=== PATIENT | female | born 2000 | race African-American/Black ===

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

== ENCOUNTER 2021-01-17 21:38 | Emergency (ER) | payer OTHER, MEDICAID, SELFPAY ==
[2021-01-17 21:39] VITALS: BP 140/87; PULSE 71; RESP 16; TEMP 36.8; O2SAT 99; BMI 22.8
--- NOTE | 2021-01-17 22:08 | EDS_ITS ---
HPI HPI - URI History of Present Illness Chief Complaint: Ear Problem Informant: patient and parent Narrative Narrative: 20-year-old female presents for the evaluation of right ear pain. Patient states that for the past couple weeks she has been having a viral URI. Seem to get better but on Monday sore throat nasal congestion and rhinorrhea returned. She states that tonight she has had pain in the right ear. No drainage. She states that her hearing is blurry. She had tympanostomy tubes as a child. No fever. Patient has had 2 - home Covid test this week and is due to be tested for her school volleyball team tomorrow. ROS ROS ED Constitutional Constitutional ED: Denies chills, fever(s) or weight loss Eyes Eyes: Denies change in vision or diplopia ENT ENT ED: Reports ear pain, rhinorrhea and sore throat Cardiovascular Cardiovascular: Denies chest pain, orthopnea, palpitations or racing heartbeat Respiratory/Chest Respiratory/Chest: Reports cough; Denies dyspnea or orthopnea Gastrointestinal Gastrointestinal: Denies abdominal pain, diarrhea, nausea or vomiting Genitourinary Genitourinary ED: Denies dysuria, hematuria or urinary frequency Musculoskeletal Musculoskeletal: Denies arthralgias or myalgias Integumentary Denies abscess or rash Neurologic Neurologic: Denies headache(s) or weakness Psychiatric Psychiatric: Denies anxiety, depression, suicidal ideation or suicidal thoughts Endocrine Endocrinology: Denies polydipsia, polyphagia or polyuria Allergic/Immunologic Allergic/Immunologic ED: Denies mouth swelling, tongue swelling or urticaria PFSH PFSH Medical History sport induced asthma Home Medications NK 01/17/21 [History Last Taken Unknown] Allergy/AdvReac Type Severity Reaction Status Date / Time No Known Allergies Allergy Verified 05/15/19 15:54 Surgical History History of placement of ear tubes Social History current occupation: [employer] other: Plays basketball, volleyball, and track Smoking Status: Never smoker alcohol intake: never substance use type: does not use seatbelt use: always EXAM Physical Exam Const Vital Signs: 01/17/21 21:39 Temperature 98.3 F Temperature Source Temporal Pulse Rate 71 Respiratory Rate 16 Blood Pressure 140/87 H Blood Pressure Mean 104 Pulse Ox 99 Oxygen Delivery Method Room Air Positive well nourished and well developed General Appearance ED: well developed HEENT Reports normocephalic, head/scalp atraumatic and moist mucous membranes HEENT Narrative: The right tympanic membrane is erythematous and bulging with l oss of landmarks. Left tympanic membrane appears normal. No evidence of perforation. normocephalic and atraumatic Throat: posterior oropharynx normal Eyes PERRL and EOMs intact bilaterally Neck no lymphadenopathy, supple and no JVD Resp normal respiratory effort and clear to auscultation bilaterally Cardio regular rate, regular rhythm and no murmurs Rate: regular rate Rhythm: regular rhythm GI normal to inspection, nondistended, normoactive bowel sounds and non-tender Palpation: soft Back/Spine no CVA tenderness and normal ROM Extremity normal to inspection General Extremety ED: Negative for edema General Extremity: Negative for edema Neuro oriented x3 and CN's II-XII intact bilaterally Sensorium / Orientation: alert Motor Exam: strength 5/5 throughout Psych mental status grossly normal Mood & Affect: Negative for depressed or tearful Skin no rashes or lesions noted and no wounds MDM MDM MDM Narrative Medical decision making narrative: Patient will be started on cefdinir. Tylenol Motrin for pain follow-up with primary care if not improving Discharge Plan Triage Chief Complaint: Ear Problem ED Provider: Karsten Montenegro Dx/Rx/DC Orders Clinical Impression: Acute otitis media, Viral URI Instructions: ED Otitis Media Antibiotic ... Prescriptions: No Action NK RF: 0 Primary Care Provider: Venus Mccoy Referrals: Venus Mccoy MD [Primary Care Provider] - As Needed Disposition Disposition: Home, Self Care
[2021-01-17] MEDS: Cefdinir 300 MG Capsule PO (23:00)
[2021-01-17 23:10] VITALS: RESP 16
== END 2021-01-17 23:11 | disposition home or self-care (01) ==
LOC: ED 22:19
PROVIDERS: Emergency Provider Emergency Medicine; PCP Pediatrics
DX: H66.91 Otitis media, unspecified, right ear (principal); J06.9 Acute upper respiratory infection, unspecified
CPT/HCPCS: 99283

== ENCOUNTER 2021-06-15 08:08 | Outpatient (CLI) | payer OTHER, MEDICAID, SELFPAY ==
--- NOTE | 2021-06-15 08:11 | US_ITS ---
STUDY: ULTRASOUND OF THE FEMALE PELVIS - COMPLETE REASON FOR EXAM: Female, 20 years old. Abnormal uterine bleeding LMP: 03/30/2021. TECHNIQUE: Transabdominal and Transvaginal TECHNICAL QUALITY: Adequate. COMPARISON: None. FINDINGS: The uterus is anteverted and is in a midline position. The uterus measures 8.4 cm x 5.2 cm x 4.1 cm. Normal uterine cervix. The endometrium measures 9.1 mm in thickness, and is hyperechoic. There is no demonstrated endometrial mass. There is no demonstrated myometrial mass. I.U.D. - The patient does not have an I.U.D. The right ovary is visualized. The right ovary measures 3.4 cm x 3.5 cm x 1.7 cm. Small follicles are seen. There is no visualized right adnexal mass or complex lesion. There is normal arterial and normal venous vascularity. The left ovary is visualized. The left ovary measures 3.7 cm x 1.9 cm x 1.6 cm. Small follicles are seen. There is no visualized left adnexal mass or complex lesion. There is normal arterial and normal venous vascularity. There is no fluid in the cul-de-sac. The pre void volume of the bladder was 148 ml. Polycystic ovary disease: No. US/Transvaginal Non- IMPRESSION: Normal female pelvis. Electronically Signed: Maikol Altman MD at 10:15 EDT ,
--- NOTE | 2021-06-15 08:11 | US_ITS ---
STUDY: ULTRASOUND OF THE FEMALE PELVIS - COMPLETE REASON FOR EXAM: Female, 20 years old. Abnormal uterine bleeding LMP: 03/30/2021. TECHNIQUE: Transabdominal and Transvaginal TECHNICAL QUALITY: Adequate. COMPARISON: None. FINDINGS: The uterus is anteverted and is in a midline position. The uterus measures 8.4 cm x 5.2 cm x 4.1 cm. Normal uterine cervix. The endometrium measures 9.1 mm in thickness, and is hyperechoic. There is no demonstrated endometrial mass. There is no demonstrated myometrial mass. I.U.D. - The patient does not have an I.U.D. The right ovary is visualized. The right ovary measures 3.4 cm x 3.5 cm x 1.7 cm. Small follicles are seen. There is no visualized right adnexal mass or complex lesion. There is normal arterial and normal venous vascularity. The left ovary is visualized. The left ovary measures 3.7 cm x 1.9 cm x 1.6 cm. Small follicles are seen. There is no visualized left adnexal mass or complex lesion. There is normal arterial and normal venous vascularity. There is no fluid in the cul-de-sac. The pre void volume of the bladder was 148 ml. Polycystic ovary disease: No. US/Pelvic (Non ) IMPRESSION: Normal female pelvis. Electronically Signed: Maikol Altman MD at 10:15 EDT ,
== END 2021-06-15 23:59 | disposition home or self-care (01) ==
PROVIDERS: PCP Pediatrics; Visit Provider Obstetrics & Gynecology
DX: N93.9 Abnormal uterine and vaginal bleeding, unspecified (principal)
CPT/HCPCS: 76830; 76856

== ENCOUNTER → 2022-05-03 | Outpatient (CLI) | payer MEDICAID, SELFPAY ==
[2022-05-03 18:09] LABS: Chlamydia Trachomatis by PCR POSITIVE (Negative); Neisserai gonorrhoeae by PCR Negative (Negative); Probe Check PASS; Sample Adequacy Control PASS; Specimen Processing Control PASS
== END | disposition home or self-care (01) ==
PROVIDERS: PCP Pediatrics; Referring Provider Nurse Practitioner Women's Health; Visit Provider Nurse Practitioner Women's Health
DX: Z11.3 Encounter for screening for infections with a predominantly sexual mode of transmission (principal)
CPT/HCPCS: 87491; 87591

== ENCOUNTER → 2022-07-05 | Outpatient (CLI) | payer MEDICAID, SELFPAY ==
[2022-07-07 22:06] LABS: Chlamydia By Nucleic Acid AMP Negative (Negative)
[2022-07-07 22:22] LABS: Gonococcus By Nucleic Acid AMP Negative (Negative)
== END | disposition home or self-care (01) ==
LOC: LABSPEC 16:38
PROVIDERS: PCP Pediatrics; Referring Provider Nurse Practitioner Women's Health; Visit Provider Nurse Practitioner Women's Health
DX: Z11.3 Encounter for screening for infections with a predominantly sexual mode of transmission (principal)
CPT/HCPCS: 87491; 87591

== ENCOUNTER 2022-08-11 12:00 | Outpatient (RCR) | payer MEDICAID, SELFPAY ==
--- NOTE | 2022-02-09 16:14 | HP.PTEVAL ---
Patient's Visit Information YENNY ZEE is a 21 year old F referred to Physical Therapy by EMELIA MURILLO with a diagnosis of Posterolateral Corner Recon 02/01/22. Date of Evaluation: 02/09/22 Physical Therapist: Altagracia Mcdermott DPT - Visit Plan Frequency: 2x /Week Duration: 4 Weeks Plan: 02/01/22- Protocol in Folder- Script has protocol information on it. HEP Given IE: Quad set, heel slides supine and seated, bolster extension stretch - Subjective Patient reports that she was playing volleyball and slipped on someone sweat and down she went- September 2020. Has not done therapy but decided to get it fixed. 02/01/22 Dr. Murillo Posterolateral Corner Recon- she went home after surgery- lives on one single story with no stairs to enter- people around who can help. Patient reports that she has pain behind the knee. Worst 7/10 Agg: getting up and moving. Best: 0/10 Eases: laying down. She is wearing the brace all the time- locked into extension. She has radiating pain from the knee to the hamstring and calf. Describes the pain as sharp and dull. Fully I and active prior to surgery. Plays volleyball in college- [employer] [facility] [employer]- plans to play again next year. She is from here and plans to stay here for therapy. Sleep: not disturbed. She plans to go back to the dorms- lives on first floor- she plans to go back to class tomorrow. PMHx: none Meds: none - Objective Posture: FH, RS can correct but does not maintain. Gait: NWB axillary crutches- TROM brace intact- follows precautions. Observation: incision healing well- steri strips intact. Girth: Patella: 41cm 6 above patella:55 cm. Palpation: tender along medial and lateral joint line and posterior knee. ROM: 10-45 degrees - Balance/Special Test Scores Lower Extremity Functional Score: 24 - Goals Goal 1:: Patient will be I with HEP and progression Goal Time Frame: 4-6 Weeks Goal 2:: Patient will ambulate >300 feet with a normalized gait pattern Goal Time Frame: 4-6 Weeks Goal 3:: Patient will demo 0-130 degrees of ROM Goal Time Frame: 4-6 Weeks Goal 4:: Patient will demo equal quad girth 6 inches above patella Goal Time Frame: 4-6 Weeks - Rehabilitation Potential Physical Therapy Diagnosis: Patient presents s/p Posterolateral Corner Recon 02/01/22- she decreased LE and core strength/stabilization, ROM, flex, proprioception and muscular endurance leading to abnormal participation in ADL's and sport Rehabilitation Potential: Good - Anticipated Interventions Patient/Client Instruction: Educate patient on: Benefits of Fitness Program Therapeutic Exercise to Include: Strength training, Endurance training, Balance training, Coordination, Agility training, Body mechanics, Postural training, Flexibilty training, Gait and locomotor training, Neuromotor development, Passive ROM, Active ROM, Dynamic Lumbar Stabilization, Scapular Strength/Stabilization TENS: Yes Other electric stimulation: Yes Cryotherapy (ice pack, ice massage): Yes Thermo therapy (hot pack): Yes Ultrasound (thermal/non thermal): No Vasopneumatic device: Yes Thank you for the opportunity to evaluate your patient. For Medicare and Medicare HMO plans, please review the plan of care and approve it. It will need to be FAXED BACK to us at [phone] for Medicare purposes. For Medicare only, by signing this I certify the plan of care. Please let me know if there are questions or concerns regarding this plan of care. Physician Signature: Date:
--- NOTE | 2022-03-09 11:00 | HP.PTREVAL ---
EMELIA MAI, It has been my pleasure to treat YENNY ZEE over the last 9 visits for Posterolateral Corner Recon 02/01/22. Please see the progress note below for an update on the physical therapy plan of care! Subjective: Patient reports that the knee is good- she can start with one crutch- she did it around the cafeteria- the bottom of the foot feels weird. She goes back to the MD on Monday. She has had some cracking but its not painful- the most pain she has is a 2-3/10 but that comes and goes. She reports compliance with restrictions. Objective/Function: Gait: PWB 50% per protocol. ROM: 0-135 degrees. Strength: extn: flex:- quad set visible no lag. Girth: 6 above: 50cm Plan Plan: 03/09/22: Continue with Protocol in Folder. 02/01/22- Protocol in Folder- Script has protocol information on it Balance/Gait/Functional tests - Balance/Special Test Scores Lower Extremity Functional Score: 42 Goals Goal 1:: Patient will be I with HEP and progression Goal Time Frame: 4-6 Weeks Goal 2:: Patient will ambulate >300 feet with a normalized gait pattern Goal Time Frame: 4-6 Weeks Goal 3:: Patient will demo 0-130 degrees of ROM Goal Time Frame: 4-6 Weeks Goal 4:: Patient will demo equal quad girth 6 inches above patella Goal Time Frame: 4-6 Weeks Anticipated Interventions Patient/Client Instruction: Educate patient on: Benefits of Fitness Program Therapeutic Exercise to Include: Strength training, Endurance training, Balance training, Coordination, Agility training, Body mechanics, Postural training, Flexibilty training, Gait and locomotor training, Neuromotor development, Passive ROM, Active ROM, Dynamic Lumbar Stabilization, Scapular Strength/Stabilization TENS: Yes Other electric stimulation: Yes Cryotherapy (ice pack, ice massage): Yes Thermo therapy (hot pack): Yes Ultrasound (thermal/non thermal): No Vasopneumatic device: Yes Please do not hesitate to contact me at [phone] by phone or if you have questions or concerns regarding this new plan of care! Sincerely, Altagracia Mcdermott DPT
--- NOTE | 2022-04-29 10:59 | HP.PTREVAL_ITS ---
EMELIA MAI, It has been my pleasure to treat YENNY ZEE over the last 21 visits for Posterolateral Corner Recon 02/01/22. Please see the progress note below for an update on the physical therapy plan of care! Subjective: Patient reports that she is still sore from Monday- she squatted without a chair and hamstring curls- muscle soreness but not painful. She is wearing the brace all the time- per MD request. Went to see MD who was happy with progress- they don't want her doing anything laterally yet. 3/10 in the posterior corner of the knee. Soreness in quads and hamstrings Objective/Function: Gait: no deviation noted. Squat: weight shift to the left. SLS: 30 sec without LOB. Right Extn: 38/42 Left Extn: 50/57. Left Flexion: 37/43 Right Mey[place]32/25 Girth: 6 above: Right: 52 cm Left: 55 cm Plan Plan: 04/22/22: Use functional brace with ADL's- okay to start bike/str ength/light ellip. Please follow protocol otherwise (but can start hamstring strengthening since those were not injured). 03/09/22: Continue with Protocol in Folder. 02/01/22- Protocol in Folder- Script has protocol information on it Balance/Gait/Functional tests - Balance/Special Test Scores Lower Extremity Functional Score: 53 Goals Goal 1:: Patient will be I with HEP and progression Goal Time Frame: 4-6 Weeks Goal Progress: Progressing Goal 2:: Patient will ambulate >300 feet with a normalized gait pattern Goal Time Frame: 4-6 Weeks Goal Progress: Progressing Goal 3:: Patient will demo 0-130 degrees of ROM Goal Time Frame: 4-6 Weeks Goal Progress: Progressing Goal 4:: Patient will demo equal quad girth 6 inches above patella Goal Time Frame: 4-6 Weeks Goal Progress: Progressing Anticipated Interventions Patient/Client Instruction: Educate patient on: Benefits of Fitness Program Therapeutic Exercise to Include: Strength training, Endurance training, Balance training, Coordination, Agility training, Body mechanics, Postural training, Flexibilty training, Gait and locomotor training, Neuromotor development, Passive ROM, Active ROM, Dynamic Lumbar Stabilization, Scapular Strength/Stabilization TENS: Yes Other electric stimulation: Yes Cryotherapy (ice pack, ice massage): Yes Thermo therapy (hot pack): Yes Ultrasound (thermal/non thermal): No Vasopneumatic device: Yes Please do not hesitate to contact me at [phone] by phone or if you have questions or concerns regarding this new plan of care! Sincerely, LANCE SanchezT
--- NOTE | 2022-06-02 10:49 | HP.PTREVAL ---
EMELIA MAI, It has been my pleasure to treat YENNY ZEE over the last 31 visits for Posterolateral Corner Recon 02/01/22. Please see the progress note below for an update on the physical therapy plan of care! Subjective: Patient reports that the knee is getting better- she is doing more lifting but is still having pain with hamstring activities. Worst: 10/03 goes away immediately after- plans to speak to her MD about this. Goes back to MD the 15 of June. Has not don't any running or jumping yet. She feels that she is 75% better but not back to sports specific activities. Objective/Function: Posture: FH, RS- can correct and maintain with verbal cues. Gait: slightly antalgic- does not fully extend in stance phase. Squat: slight weight shift to the left. SLS: 30 sec without LOB. Right Extn: 55 Left Extn: 60. Left Flexion: 50 Right Flexion: 39 Girth: 6 above: Right: 55 cm Left: 55.5 cm. ROM: 0-135 degrees Plan Plan: 06/02/22: Continue through protocol 2-3x a week for 12 weeks. Quad/knee dominant compound lifts (squat) and hamstring hypertrophy on machines next visit. RTD May. Progress note at this time. Balance/Gait/Functional tests - Balance/Special Test Scores Lower Extremity Functional Score: 49 Goals Goal 1:: Patient will be I with HEP and progression Goal Time Frame: 4-6 Weeks Goal Progress: Progressing Goal 2:: Patient will ambulate >300 feet with a normalized gait pattern Goal Time Frame: 4-6 Weeks Goal Progress: Progressing Goal 3:: Patient will demo 0-130 degrees of ROM Goal Time Frame: 4-6 Weeks Goal Progress: Goal Met Goal 4:: Patient will demo equal quad girth 6 inches above patella Goal Time Frame: 4-6 Weeks Goal Progress: Progressing Anticipated Interventions Patient/Client Instruction: Educate patient on: Benefits of Fitness Program Therapeutic Exercise to Include: Strength training, Endurance training, Balance training, Coordination, Agility training, Body mechanics, Postural training, Flexibilty training, Gait and locomotor training, Neuromotor development, Passive ROM, Active ROM, Dynamic Lumbar Stabilization, Scapular Strength/Stabilization TENS: Yes Other electric stimulation: Yes Cryotherapy (ice pack, ice massage): Yes Thermo therapy (hot pack): Yes Ultrasound (thermal/non thermal): No Vasopneumatic device: Yes Please do not hesitate to contact me at [phone] by phone or if you have questions or concerns regarding this new plan of care! Sincerely, LANCE SanchezT
--- NOTE | 2022-07-14 10:55 | HP.PTREVAL_ITS ---
EMELIA MAI, It has been my pleasure to treat YENNY ZEE over the last 39 visits for Posterolateral Corner Recon 02/01/22. Please see the progress note below for an update on the physical therapy plan of care! Subjective: Patient reports that she goes back to see the MD in August. Feels really good with the exception of the back part in her hamstring area. Worst pain in the last week is a 3/10- pain is there all the time but the pain intensity changes. She has more pain when she is active. When it hurts there is nothing that really makes it feel better. Goes back to [facility] in August. When she was there she was told by the MD that it was in PT's hands when she was allowed to return to sport. She feels that she is ready to return to sport. The pain is what makes her feel only 90%. Objective/Function: As of July 05-[facility]: SL hop for distance: R 5'8 L 5'9=98%. SL triple jump: R 16'0 L 17'2=93%. SL crossover hop: R 10'8 L 11'3=94%. 6m timed hop: R 2.31s L 2.44s=94%. SL vertical jump: R 5.8 L 7.04=82%. Pro-agility 5-10-5: R 5.02s L 5.10s=98%. 07/14/22 PT ELR: Posture: good throughout. Gait: no deviation noted. Squat: slight weight shift to the left. SLS: 30 sec without LOB. Right Extn: 53 Left Extn: 55. Left Flexion: 43.5 Right Flexion: 44 Ratio: Left: 79% Right: 83% Girth: 6 above: Right: 55 cm Left: 55.5 cm. ROM: 0-135 degrees Plan Plan: 07/14/22: Hold- pt will do her own program for 4 weeks then follow up with [facility] for progression of HEP and jump measurements then PT CS for strength and POC update. 06/21/22: Per Script: ok for modalities/needling. As long as hip/core/jump landing good, ok for slow interval return to running program. I wo uld make sure kinematic, proximal strength, hamstring tendonitis is calmed down before return to running (same with return to any lateral movement or sport-like activities) -ELR. 06/02/22: Continue through protocol 2-3x a week for 12 weeks. Quad/knee dominant compound lifts (squat) and hamstring hypertrophy on machines. Balance/Gait/Functional tests - Balance/Special Test Scores Lower Extremity Functional Score: 78 Goals Goal 1:: Patient will be I with HEP and progression Goal Time Frame: 4-6 Weeks Goal Progress: Progressing Goal 2:: Patient will ambulate >300 feet with a normalized gait pattern Goal Time Frame: 4-6 Weeks Goal Progress: Progressing Goal 3:: Patient will demo 0-130 degrees of ROM Goal Time Frame: 4-6 Weeks Goal Progress: Goal Met Goal 4:: Patient will demo equal quad girth 6 inches above patella Goal Time Frame: 4-6 Weeks Goal Progress: Progressing Anticipated Interventions Patient/Client Instruction: Educate patient on: Benefits of Fitness Program Therapeutic Exercise to Include: Strength training, Endurance training, Balance training, Coordination, Agility training, Body mechanics, Postural training, Flexibilty training, Gait and locomotor training, Neuromotor development, Passive ROM, Active ROM, Dynamic Lumbar Stabilization, Scapular Strength/Stabilization TENS: Yes Other electric stimulation: Yes Cryotherapy (ice pack, ice massage): Yes Thermo therapy (hot pack): Yes Ultrasound (thermal/non thermal): No Vasopneumatic device: Yes Please do not hesitate to contact me at [phone] by phone or if you have questions or concerns regarding this new plan of care! Sincerely, Altagracia Mcdermott DPT
--- NOTE | 2022-08-11 13:23 | HP.PTREVAL_ITS ---
EMELIA MAI, It has been my pleasure to treat YENNY ZEE over the last 40 visits for Posterolateral Corner Recon 02/01/22. Please see the progress note below for an update on the physical therapy plan of care! Subjective: Pt. reports being 95% better overall. She is back to running, she does have some discomfort, but overall doing well. She has tried playing basketball in a league, but only for a few minutes at a time. Pt. has been strength training x5 days per week. She does have some lateral thigh soreness with increased HS exercises, mostly in single leg. Objective/Function: Much improved jump height and distance bilaterally while maintaining or improving symmetry from side to side! SL hop for distance: R 5'11 L 6'3=94%. SL triple jump: R 17'4 L 18'3=94%. SL crossover hop: R 14'5L 14'4=99%. 6m timed hop: R 2.17s L 2.28s=95%. SL vertical jump: R 7.23 L 7.42=97%. Agility tests done last month but WNL. Pro-agility 5-10-5: R 5.02s L 5.10s=98%. Pt. has equal strength bilaterally. No issues with squatting, lunging, skipping or jumping. Pt. is doing well with all exercises and running. Pt. at this point in time is able to progress back to sporting activities, but to wean into it. She is to contact me with any concerns leading up to when she sees her physician in august. Pt. consents. Plan Plan: Pt. to return back to sport weaning into it as tolerated. Pt. to see physician in late August. Pt. to contact PT if not progressing as she feels she should be. Balance/Gait/Functional tests - Balance/Special Test Scores Lower Extremity Functional Score: 80 Goals Goal 1:: Patient will be I with HEP and progression Goal Time Frame: 4-6 Weeks Goal Progress: Goal Met Goal 2:: Patient will ambulate >300 feet with a normalized gait pattern Goal Time Frame: 4-6 Weeks Goal Progress: Goal Met Goal 3:: Patient will demo 0-130 degrees of ROM Goal Time Frame: 4-6 Weeks Goal Progress: Goal Met Goal 4:: Patient will demo equal quad girth 6 inches above patella Goal Time Frame: 4-6 Weeks Goal Progress: Goal Met Goal 5:: LTG: Pt. to run with normal mechanics without increase in symptoms. Goal Time Frame: 4-6 Weeks Goal Progress: Goal Met Goal 6:: LTG: Pt. to pass all RTS testing without increase in symptoms. Goal Time Frame: 4-6 Weeks Goal Progress: Goal Met Anticipated Interventions Patient/Client Instruction: Educate patient on: Benefits of Fitness Program Therapeutic Exercise to Include: Strength training, Endurance training, Balance training, Coordination, Agility training, Body mechanics, Postural training, Flexibilty training, Gait and locomotor training, Neuromotor development, Passive ROM, Active ROM, Dynamic Lumbar Stabilization, Scapular Strength/S tabilization TENS: Yes Other electric stimulation: Yes Cryotherapy (ice pack, ice massage): Yes Thermo therapy (hot pack): Yes Ultrasound (thermal/non thermal): No Vasopneumatic device: Yes Please do not hesitate to contact me at [phone] by phone or if you have questions or concerns regarding this new plan of care! Sincerely, Axel Montiel DPT
== END 2022-08-11 19:00 | disposition home or self-care (01) ==
LOC: PT 12:00
PROVIDERS: PCP Pediatrics
DX: S83.429D Sprain of lateral collateral ligament of unspecified knee, subsequent encounter (principal)
CPT/HCPCS: 97110; 97116; 97140; 97162; 97164; 97530

== ENCOUNTER → 2022-10-18 | Outpatient (CLI) | payer MEDICAID, SELFPAY ==
[2022-10-21 09:09] LABS: Chlamydia By Nucleic Acid AMP Negative (Negative); Gonococcus By Nucleic Acid AMP Negative (Negative)
== END | disposition home or self-care (01) ==
PROVIDERS: PCP Pediatrics; Visit Provider Nurse Practitioner Women's Health
DX: N89.8 Other specified noninflammatory disorders of vagina (principal)
CPT/HCPCS: 87070; 87205; 87491; 87591

== ENCOUNTER → 2023-07-10 | Outpatient (CLI) | payer MEDICAID, SELFPAY ==
[2023-07-10 09:57] LABS: Hematocrit 31.9 % (37-47); Hemoglobin 9.6 g/dL (12.0-15.0); Mean Corp Hgb Conc 30.1 g/dL (32-36); Mean Corpuscular Hgb 22.1 pg (27.0-32.0); Mean Corpuscular Volume 73.5 fL (81-99); Mean Platelet Vol. 9.3 fl (6.2-12.0); POSITIVE MORPHOLOGY YES; Platelet Count 417 K/mm3 (150-450); RBC Distribution Width CV 21.5 % (11.6-14.6); Red Blood Count 4.34 M/mm3 (4.2-5.4); White Blood Count 4.7 K/mm3 (4.4-11.0)
[2023-07-10 10:15] LABS: Scan Indicated on CBC? Y/N YES- FLAGS NOTED
[2023-07-10 10:25] LABS: Differential Comment SCANNED
[2023-07-10 10:56] LABS: HIV - WCH Non-Reactive (Nonreactive); Hepatitis C Antibody Non-Reactive (Nonreactive); Syphilis Antibodies Non-reactive
[2023-07-12 19:46] LABS: HPV Reflexed? NOT INDICATED
== END | disposition home or self-care (01) ==
PROVIDERS: Referring Provider Nurse Practitioner Women's Health; Visit Provider Nurse Practitioner Women's Health
DX: Z12.4 Encounter for screening for malignant neoplasm of cervix (principal); Z20.2 Contact with and (suspected) exposure to infections with a predominantly sexual mode of transmission; N93.9 Abnormal uterine and vaginal bleeding, unspecified
CPT/HCPCS: 36415; 85027; 86703; 86780; 86803; 88175; G0145

== ENCOUNTER 2024-01-18 15:00 | Emergency (ER) | payer MEDICAID, SELFPAY ==
[2024-01-18 15:02] VITALS: BP 121/62; PULSE 72; RESP 18; TEMP 36.4; O2SAT 100; BMI 24.5
[2024-01-18 17:01] VITALS: BP 116/67; PULSE 65; RESP 18
[2024-01-18 17:23] LABS: Mucous, Urine 0 SEEN /hpf (<or=2+); Red Blood Cells-Urine 0 SEEN /hpf (0-5)
[2024-01-18 17:29] LABS: Color, Urine Yellow (Yellow); Glucose, Dipstick Normal (Normal); Ketone-Dipstick Negative (Negative); Leukocyte Esterase-Dipstick 25 /ul (Negative); Nitrite-Dipstick Negative (Negative); Occult Blood-Urine Negative /ul (Negative); Protein-Dipstick 30 mg/dl (Negative); Urine Bilirubin Dipstick Negative (Negative); Urine Clarity Clear (Clear); Urine Urobilinogen Normal (Normal)
[2024-01-18 17:33] LABS: Internal QC Validated? YES +Cl - CLEAR BKGD; Pregnancy, Urine Negative Negative
[2024-01-18 17:41] LABS: Bacteria 1+ /hpf (None Seen); Squamous Epithelial Cells - UA 5-10 SEEN /hpf (5-10); White Blood Cells 0-5 SEEN /hpf (0-5)
--- NOTE | 2024-01-18 18:01 | US_ITS ---
EXAM: US PELVIS TRANSVAGINAL CLINICAL INDICATION: left pelvic pain TECHNIQUE: Transvaginal pelvic ultrasound was performed with grayscale and color Doppler imaging. Transvaginal imaging was used for better evaluation of the endometrium and adnexa. COMPARISON: No relevant prior studies available. FINDINGS: UTERUS/CERVIX: The uterus measures 7.3 x 3.8 x 4.6 cm. The endometrium measures 8 mm. Anteverted. There is no uterine mass. RIGHT OVARY: The right ovary measures 3.6 x 1.5 x 2.0 cm. Blood flow is present in the right ovary. LEFT OVARY: The left ovary measures 3.4 x 1.4 x 2.1 cm. Blood flow is present in the left ovary. FREE FLUID: There is a trace amount of free fluid in the cul-de-sac. BLADDER: Empty bladder which cannot be evaluated with this probe. US/Transvaginal Non- IMPRESSION: No acute findings in the pelvis. Electronically Signed: Abiel Jennings MD at 18:50 EDT ,
--- NOTE | 2024-01-18 18:03 | EDS_ITS ---
HPI HPI - GI History of Present Illness Chief Complaint: Abd Pain Informant: patient Narrative Narrative: 23-year-old female presenting with left pelvic pain that has been persistent since her last menstrual cycle which was about 2 weeks ago. She states she used to have irregular cycles before she was put on control pills which she has been taking and have regulated her cycle. She states she is due to have her next cycle in the next 4 days, as she just started the placebo pills and her hormone pack. She denies any urinary symptoms. No nausea or vomiting. She denies any vaginal discharge or bleeding right now. Normal bowel movements. No history of abdominal surgeries. 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 Home Medications ?Medication ?Instructions ?Recorded ?Last Taken ?Type levonorgestrel-ethinyl estradiol 1 tab PO QDAY #84 tabs 07/10/23 Unknown Rx 0.1 mg-20 mcg tablet (Aviane) valacyclovir 500 mg tablet 500 mg PO QDAY #90 tabs 11/01/23 Unknown Rx Allergy/AdvReac Type Severity Reaction Status Date / Time No Known Allergies Allergy Verified 01/18/24 15:01 Surgical History History of placement of ear tubes Social History current occupation: [employer] other: Plays basketball, volleyball, and track Smoking Status: Never smoker alcohol intake: never substance use type: does not use seatbelt use: always additional social history: Works at [employer] in the summer ROS ROS ED Constitutional Constitutional ED: Denies chills or fever(s) Eyes Eyes: Denies change in vision or diplopia ENT ENT ED: Denies rhinorrhea or sore throat Cardiovascular Cardiovascular: Denies chest pain or palpitations Respiratory/Chest Respiratory/Chest: Denies cough or dyspnea Gastrointestinal Gastrointestinal: Reports abdominal pain; Denies diarrhea, nausea or vomiting Genitourinary Genitourinary ED: Denies dysuria or hematuria Musculoskeletal Musculoskeletal: Denies back pain or neck pain Integumentary Denies abscess or rash Neurologic Neurologic: Denies headache(s), paresthesias or weakness Psychiatric Psychiatric: Denies anxiety or suicidal thoughts EXAM Physical Exam Const Vital Signs: 01/18/24 15:02 01/18/24 17:01 01/18/24 19:00 Temperature 97.5 F L Temperature Source Temporal Pulse Rate 72 65 Respiratory Rate 18 18 Blood Pressure 121/62 H 116/67 115/72 Blood Pressure Mean 81 83 85 Pulse Ox 100 Oxygen Delivery Method Room Air Room Air 01/18/24 21:00 Temperature Temperature Source Pulse Rate Respiratory Rate Blood Pressure 126/64 H Blood Pressure Mean 79 Pulse Ox Oxygen Delivery Method Positive well nourished and well developed General Appearance ED: well developed and NAD HEENT Reports moist mucous membranes normocephalic and atraumatic Eyes PERRL and EOMs intact bilaterally Neck full ROM and supple Resp normal respiratory effort and clear to auscultation bilaterally Cardio regular rate, regular rhythm and no murmurs GI non-distended GI Narrative: Mildly tender in the left pelvis. No other areas of tenderness. No guarding or rebound no distention. Auscultation: normoactive bowel sounds Palpation: soft Back/Spine no CVA tenderness General Back: other FROM Extremity normal to inspection General Extremety ED: Negative for edema, pulses abnormal or tenderness General Extremity: Negative for edema or pulses abnormal Neuro oriented x3, CN's II-XII intact bilaterally and no sensory deficits noted Sensorium / Orientation: awake and alert Motor Exam: strength 5/5 throughout Skin no rashes or lesions noted and no wounds MDM MDM MDM Narrative Medical decision making narrative: is negative ruling out ectopic. Patient interested in ultrasound which I think is reasonable. Urine shows no sign of acute infection. She was offered something for pain but declined. Labs noted, she does not have a leukocytosis, her urine shows no acute infection, and I reviewed the ultrasound images and the report which I agree with, it is essentially negative for any acute except for some mild amount of free fluid. This is consistent with a possible cyst that ruptured and since regressed, we have ruled out ectopic , tubo-ovarian abscess, torsed ovary. I do not think she needs a CT to look for GI etiologies at this time. She really is in a relatively mild amount of discomfort, and the tenderness is very mild, so although it was considered I really do not think she is dealing with PID; this pain is fairly focal. Endometriosis may be in the differential but this is not a classic history for it. She is comfortable taking ibuprofen and following up with her [facility] when she is able if the pain persist. Lab Data Attestation: I reviewed the patient's lab results. Labs: Laboratory Results - last 24 hr 01/18/24 01/18/24 17:18 18:15 WBC 9.8 RBC 3.98 L Hgb 9.1 L Hct 29.3 L MCV 73.6 L MCH 22.9 L MCHC 31.1 L RDW Std Deviation 57.1 H RDW Coeff of Tim 21.6 H Plt Count 339 MPV 9.5 Immature Gran % (Auto) 0.300 Neut % (Auto) 71.6 H Lymph % (Auto) 15.5 L [place] % (Auto) 10.4 H Eos % (Auto) 1.9 Baso % (Auto) 0.3 Absolute Neuts (auto) 7.0 Absolute Lymphs (auto) 1.52 Nucleated RBC % 0 Differential Comment SCANNED Hypochromasia 1+ Anisocytosis 1+ Urine Color Yellow Urine Clarity Clear Urine pH 6.0 Ur Specific [place] 1.020 Urine Protein 30 H Urine Glucose (UA) Normal Urine Ketones Negative Urine Occult Blood Negative Urine Nitrite Negative Urine Bilirubin Negative Urine Urobilinogen Normal Ur Leukocyte Esterase 25 H Urine RBC 0 SEEN Urine WBC 0-5 SEEN Ur Squamous Epith Cells 5-10 SEEN Urine Bacteria 1+ Urine Mucus 0 SEEN Urine Test Negative Radiography Diagnostic Testing: Clinical Impression(s) from Imaging Studies Transvaginal US 01/18/24 18:01 IMPRESSION: No acute findings in the pelvis. Electronically Signed: Abiel Jennings MD at 18:50 EDT , Discharge Plan Triage Chief Complaint: Abd Pain ED Provider: Daryn Sanchez Dx/Rx/DC Orders Clinical Impression: Acute pain in female pelvis Instructions: ED Ovarian Cyst, ED Pelvic Pain, Unknown Cause Prescriptions: No Action levonorgestrel-ethinyl estrad [Aviane] 0.1-20 mg-mcg tablet 1 tab PO QDAY Qty: 84 4RF valacyclovir 500 mg tablet 500 mg PO QDAY Qty: 90 3RF Primary Care Provider: Care Physician,No Primary Referrals: Heidy Ugarte MD [Med Staff - Active Staff] - 1 Week if not improving Print Language: Uzbek Disposition Disposition: Home, Self Care
[2024-01-18 18:21] LABS: Absolute Lymphocyte Count 1.52 X10^3/uL (0.83-4.51); Basophil# 0.03 X10^3/uL; Basophil% 0.3 % (0-1); Eosinophil# 0.19 X10^3/uL; Eosinophils% 1.9 % (0-5); Hematocrit 29.3 % (37-47); Hemoglobin 9.1 g/dL (12.0-15.0); Lymphocyte # 1.52 X10^3/ul (0.83-4.51); Lymphocyte % 15.5 % (19-41); Mean Corp Hgb Conc 31.1 g/dL (32-36); Mean Corpuscular Hgb 22.9 pg (27.0-32.0); Mean Corpuscular Volume 73.6 fL (81-99); Mean Platelet Vol. 9.5 fl (6.2-12.0); Monocyte# 1.02 X10^3/uL; Monocyte% 10.4 % (0-10); NRBC Flagged by Analyzer 0 % (0-5); Neutrophil # 7.04 X10^3/uL (2.7-7.7); Neutrophil % 71.6 % (47-70); POSITIVE MORPHOLOGY YES; Platelet Count 339 K/mm3 (150-450); RBC Distribution Width CV 21.6 % (11.6-14.6); RBC Distribution Width SD 57.1 fl (35.1-43.9); Red Blood Count 3.98 M/mm3 (4.2-5.4); White Blood Count 9.8 K/mm3 (4.4-11.0)
[2024-01-18 18:32] LABS: Differential Indicated SCAN CRITERIA MET
[2024-01-18 19:00] VITALS: BP 115/72
[2024-01-18 19:03] LABS: Differential Comment SCANNED
[2024-01-18 19:04] LABS: Anisocytosis 1+; Hypochromasia 1+
[2024-01-18 21:00] VITALS: BP 126/64
== END 2024-01-18 21:30 | disposition home or self-care (01) ==
PROVIDERS: Emergency Provider Emergency Medicine; Visit Provider Emergency Medicine
DX: R10.2 Pelvic and perineal pain (principal)
CPT/HCPCS: 76830; 81001; 81025; 85025; 93976; 99282; A4216

== ENCOUNTER → 2024-01-25 | Outpatient (CLI) | payer MEDICAID, SELFPAY | END | disposition home or self-care (01) | LOC: LABSPEC 11:42 | PROVIDERS: Referring Provider Obstetrics & Gynecology; Visit Provider Obstetrics & Gynecology | DX: Z11.3 Encounter for screening for infections with a predominantly sexual mode of transmission (principal) | CPT/HCPCS: 87491; 87591 ==

== ENCOUNTER 2024-04-29 05:05 | Emergency (ER) | payer MEDICAID, SELFPAY ==
[2024-04-29 05:05] VITALS: BP 102/91; BP 133/81; PULSE 82; PULSE 85; RESP 16; RESP 18; TEMP 37.4; O2SAT 100; BMI 34.3
--- NOTE | 2024-04-29 05:35 | RAD_ITS ---
PROCEDURE: CHEST PA AND LATERAL REASON FOR EXAM: Cough. Influenza A TECHNIQUE: Frontal and lateral views of the chest. COMPARISON: None. FINDINGS: Lungs are well aerated. No focal airspace consolidation, pneumothorax or pleural effusion is seen. Remaining lung markings otherwise appears clear. Heart size and great vessels are within normal limits. The osseous thorax is intact. RAD/Chest PA and Lateral IMPRESSION: No acute cardiopulmonary process identified. Reading Location: [facility]
[2024-04-29] MEDS: guaiFENesin/Codeine 5 ML UDC 10 ML PO (05:42)
[2024-04-29] MEDS: dexAMETHasone 10 MG/ML Vial PO.IVFORM (05:42)
--- NOTE | 2024-04-29 06:18 | EDS_ITS ---
HPI History of Present Illness Chief Complaint: Cough Informant: patient Narrative Narrative: Patient is a 23-year-old female with past medical history of sports induced asthma. She reports she has had 3 to 4 days of nasal congestion sore throat cough headache and fatigue. She reports she went to an outside facility where she tested positive for influenza and was placed on Tamiflu. She states has been taking the medication as directed but her symptoms are not improving and she is concerned she may have pneumonia with this and therefore comes in for evaluation [facility] Medical History Chlamydia 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 Home Medications ?Medication ?Instructions ?Recorded ?Last Taken ?Type levonorgestrel-ethinyl estradiol 1 tab PO QDAY #84 tab s 07/10/23 Unknown Rx 0.1 mg-20 mcg tablet (Aviane) valacyclovir 500 mg tablet 500 mg PO QDAY #90 tabs 10/17 Unknown Rx azelastine 137 mcg (0.1 %) nasal 2 spray intranasal BI D #30 mL 04/29/24 Unknown Rx spray codeine 10 mg-guaifenesin 100 mg/5 10 ml PO 4X/DAY PRN flu symptoms 7 04/29/24 Unknown Rx mL oral liquid (Guaifenesin AC) days #280 mL prednisone 20 mg tablet 40 mg (2 x 20 mg) PO DAILY 5 days 04/29/24 Unknown Rx #10 tabs Allergy/AdvReac Type Severity Reaction Status Date / Time No Known Allergies Allergy Verified 04/11/24 13:34 Surgical History History of knee surgery History of placement of ear tubes Social History current occupation: [employer] sexually active: No other: Plays basketball, volleyball, and track Smoking Status: Never smoker alcohol intake: current alcohol intake frequency: a few times a month substance use type: does not use seatbelt use: always additional social history: Works at [email or web address] in the summer ROS ROS ED Constitutional Constitutional ED: Reports chills and fever(s) Eyes Eyes: Denies blurry vision or change in vision ENT ENT ED: Reports rhinorrhea and sore throat Cardiovascular Cardiovascular: Denies chest pain Respiratory/Chest Respiratory/Chest: Reports cough and dyspnea Gastrointestinal Gastrointestinal: Denies abdominal pain, diarrhea, nausea or vomiting Genitourinary Genitourinary ED: Denies dysuria Musculoskeletal Musculoskeletal: Reports myalgias Integumentary Denies rash Neurologic Neurologic: Reports headache(s) Hematologic/Lymphatic Hematologic/Lymphatic: Denies easy bleeding or easy bruising Allergic/Immunologic Allergic/Immunologic ED: Denies mouth swelling or tongue swelling EXAM Physical Exam Const Vital Signs: 04/29/24 05:05 04/29/24 05:05 04/29/24 06:26 Temperature 99.4 F H 99.5 F H Temperature Source Oral Pulse Rate 82 85 90 Respiratory Rate 16 18 18 Respiratory Effort Respiratory Depth Respiratory Pattern Blood Pressure 133/81 H 102/91 H 103/60 Blood Pressure Mean 98 94 74 Pulse Ox 100 100 98 Oxygen Delivery Method Room Air Room Air 04/29/24 06:26 Temperature Temperature Source Pulse Rate Respiratory Rate Respiratory Effort Normal Non-Labored Respiratory Depth Normal Respiratory Pattern Normal Blood Pressure Blood Pressure Mean Pulse Ox Oxygen Delivery Method Room Air Positive well nourished and well developed General Appearance ED: well developed; Negative for pallor HEENT HEENT Narrative: Nasal mucosa is hyperemic and boggy Cobblestoning is noted in the posterior pharynx consistent with sinus drainage without airway edema or compromise Bilateral TMs are retracted but show no secondary findings to suggest infection Eyes PERRL and EOMs intact bilaterally General Eye ED: Negative for scleral icterus Neck supple and no JVD Neck Narrative: No nuchal rigidity or meningeal signs Chest Wall palpation of chest normal Resp normal respiratory effort Resp Narrative: Breath sounds are diminished throughout with faint rhonchi in the bilateral bases but no signs of respiratory distress Cardio regular rate and regular rhythm GI normal to inspection, nondistended, normoactive bowel sounds, non-tender, non- distended and no masses Auscultation: normoactive bowel sounds Palpation: soft Extremity normal to inspection Extremity Narrative: No asymmetric edema no pitting edema negative Homans' sign bilaterally Neuro oriented x3, CN's II-XII intact bilaterally and no sensory deficits noted Sensorium / Orientation: alert Motor Exam: strength 5/5 throughout Psych mental status grossly normal Skin no rashes or lesions noted General Skin Exam: Negative for jaundice or pallor MDM MDM MDM Narrative Medical decision making narrative: Patient arrived to the ER with a low-grade fever but otherwise stable vitals and in no acute respiratory distress. She reported a recent outpatient positive viral swab for influenza A. The fact that she is on Tamiflu with minimal symptom improvement is to be expected. As she is already tested positive for influenza A do not feel the need for repeat viral swab. As patient could have potential viral pneumonia or lung pathology such as pneumothorax or rib fracture causing her recurrent cough and shortness of breath that did elect to perform a chest x-ray. X-ray revealed no acute lung pathology indicating her symptoms are related to simply the viral infection. She is not hypoxic or in respiratory distress she does not have physical exam findings to suggest sepsis and therefore there is no need for further workup and she is otherwise safe for discharge with symptomatic care History & Record Review Discussion w/independent historian: Patient Radiography Diagnostic Testing: Clinical Impression(s) from Imaging Studies Chest X-Ray 04/29/24 05:35 IMPRESSION: No acute cardiopulmonary process identified. 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, Asthma Instructions: ED Influenza (Adult) Prescriptions: New prednisone 20 mg tablet 40 mg PO DAILY 5 Days Qty: 10 0RF azelastine 137 mcg (0.1 %) spray,non-aerosol 2 spray intranasal BID Qty: 30 0RF Rx Instructions: administer into each nostril codeine-guaifenesin [Guaifenesin AC] 10-100 mg/5 mL liquid 10 ml PO 4X/DAY PRN (Reason: flu symptoms) 7 Days Qty: 280 0RF No Action levonorgestrel-ethinyl estrad [Aviane] 0.1-20 mg-mcg tablet 1 tab PO QDAY Qty: 84 4RF valacyclovir 500 mg tablet 500 mg PO QDAY Qty: 90 3RF Primary Care Provider: Care Physician,No Primary Referrals: Rod Boyd MD [Med Staff - Active Staff] - Care Physician,No Primary [Primary Care Provider] - Print Language: Albanian Disposition Disposition: Home, Self Care Discharge Date/Time: 04/29/24 06:28
[2024-04-29 06:26] VITALS: BP 103/60; PULSE 90; RESP 18; TEMP 37.5; O2SAT 97; O2SAT 98
== END 2024-04-29 06:28 | disposition home or self-care (01) ==
PROVIDERS: Emergency Provider Emergency Medicine; Visit Provider Emergency Medicine
DX: J10.1 Influenza due to other identified influenza virus with other respiratory manifestations (principal); D50.9 Iron deficiency anemia, unspecified; K90.0 Celiac disease; J45.909 Unspecified asthma, uncomplicated
CPT/HCPCS: 71046; 99283

== ENCOUNTER → 2025-02-05 | Outpatient (CLI) | payer MEDICAID, SELFPAY ==
--- OUTSIDE RECORDS SUMMARY | 2025-02-05 16:56 | XMS RPT_ITS | CCD ---
Author Organization [facility] Care Team Providers Care Freight Checker Name Role Phone Karsten Murillo MD Unavailable Dr. Venus Key Primary Care Provider Dr. Venus Key Referring Provider Dr. Shanon Black Attending Provider Venus Key Primary Care Provider Karsten Murillo MD Unavailable Venus Key Primary Care Provider Venus Key Primary Care Provider Dr. Venus Key Primary Care Provider Dr. Vneus Key Referring Provider Candi CANDY POLISHERNAREN Attending Provider Dr. Venus Key Primary Care Provider Dr. Venus Key Referring Provider Candi CANDY POLISHERNAREN Attending Provider Dr. Venus Key Primary Care Provider Dr. Venus Key Referring Provider Candi CANDY POLISHERANGELO-Federico Prince Attending Provider Venus Key MD Primary Care Provider VENUS KEY Primary Care Unavailable Care Physician, No Primary Primary Care Provider Unavailable Care Physician, No Primary Referring Provider Un available Dr. Alex Means MD Attending Provider Dr. Alex Means MD Referring Provider Alex Means Attending Unavailable Care Physician, No Primary Primary Care Unava ilable Care Physician, No Primary Referring Unava ilable Care Physician, No Primary Primary Care Unava ilable Niki Christopher NP Attending Unavailable Care Physician, No Primary Referring Unava ilable Care Physician, No Primary Primary Care Unava ilable Miguelangel, Alex Attending Unavailable Care Physician, No Primary Referring Unava ilable Care Physician, No Primary Primary Care Unava ilable Prah, Alex Attending Unavailable Care Physician, No Primary Referring Unava ilable Care Physician, No Primary Referring Unava ilable Care Physician, No Primary Primary Care Unava ilable Heidy Ugarte Attending Unavailable Care Physician, No Primary Referring Unava ilable Miguelangel, Alex Attending Unavailable Care Physician, No Primary Primary Care Unava ilable Care Physician, No Primary Primary Care Unava ilable Heidy Ugarte Attending Unavailable Marcanthony, Heidy Referring Unavailable Daryn Sanchez Attending Unavailable Care Physician, No Primary Primary Care Unava ilable Darius Hernandez Attending Unavailable Care Physician, No Primary Primary Care Unava ilable Prah, Alex Attending Unavailable [facility], Alex Referring Unavailable Care Physician, No Primary Primary Care Unava ilable Medications Current Medications Medication Drug Class(es) Dates Sig (Normalized) Sig (Original) aspirin 81 mg delayed release oral tablet (4 sources) Platelet Aggregation Inhibitor, Nonsteroidal Anti-inflammatory Drug Start: 02-01-2022 take 1 tablet by mouth once daily aspirin, enteric coated (ASPIRIN, ENTERIC COATED) 81 mg EC tablet Take 81 mg by mouth once daily. 02/01/2022 Active Comment on above: Take 81 mg by mouth once daily. azelastine hydrochloride 0.137 mg/actuat metered dose nasal spray (1 source) Histamine-1 Receptor Antagonist Start: 04-29-2024 Azelastine 137 mcg (0.1 %) spray,non-aeroso l Active 2 NMA INTRANASAL TWICE A DAY April 29, 2024 1:00am administer into each nostril codeine phosphate 2 mg/ml / guaiFENesin 20 mg/ml oral solution (1 source) Opioid Agonist Start: 04-29-2024 take 1 mL by mouth four times daily as needed Codeine-Guaifene sin (Guaifenesin Ac) 10-100 mg/5 mL liquid Active 10 mL PO 4 TIMES DAILY as needed for flu symptoms 280 7 0 April 29, 2024 7:19am Influenza due to influenza virus, type A, human Levonorgestrel-Ethin yl Estrad (14 sources) Progestin, Estrogen, Progestin-containin g Intrauterine Device Start: 09-09-2024 take 1 tablet by mouth once daily Levonorgestrel-E thinyl Estrad (Aviane) 0.1-20 mg-mcg tablet Active 1 {tbl} PO daily 84 September 09, 2024 12:15pm Start: 03-17-2024 take 1 tablet by evin th once Levonorgestrel-Ethinyl Estrad 0.1mg - 20mcg per tablet Take 1 tablet by mouth every afternoon. 03/17/2024 Active Start: 07-10-2023 End: 09-09-2024 take 1 tablet by mouth once daily Levonorgestrel-Ethinyl Estrad (Aviane) 0.1-20 mg-mcg tablet Discontinued 1 {tbl} PO daily 84 July 10, 2023 9:21am September 09, 2024 12:15pm Start: 07-10-2023 take 1 tablet by evin th once daily Levonorgestrel-Ethinyl Estrad (Aviane) 0.1-20 mg-mcg tablet Active 1 TABLET PO daily July 10, 2023 9:21am Start: 10-18-2022 End: 07-10-2023 take 1 tablet by mouth once daily Levonorgestrel-Ethinyl Estrad (Aviane) 0.1-20 mg-mcg tablet Discontinued 1 {tbl} PO daily 84 October 18, 2022 12:00am July 10, 2023 9:22am Start: 10-18-2022 End: 07-10-2023 take 1 tablet by mouth once daily Levonorgestrel-Ethinyl Estrad (Aviane) 0.1-20 mg-mcg tablet Discontinued 1 TABLET PO daily October 18, 2022 12:00am July 10, 2023 9:22am Start: 07-05-2022 End: 10-18-2022 Levonorgestrel-Ethinyl Estra d (Altavera (28)) 0.15-0.03 mg tablet Discontinued 1 {tbl} PO DAILY 84 July 05, 2022 9:04am October 18, 2022 2:29pm Start: 07-05-2022 End: 10-18-2022 Levonorgestrel-Ethinyl Estra d (Altavera (28)) 0.15-0.03 mg tablet Discontinued 1 TABLET PO DAILY July 05, 2022 9:04am October 18, 2022 2:29pm Start: 07-05-2022 Levonorgestrel -Ethinyl Estrad (Altavera (28)) 0.15-0.03 mg tablet Active 1 TABLET PO DAILY July 05, 2022 9:04am Start: 05-03-2022 End: 07-05-2022 Levonorgestrel-Ethinyl Estra d (Altavera (28)) 0.15-0.03 mg tablet Discontinued 1 {tbl} PO DAILY 21 06May 03, 2022 1:00am July 05, 2022 9:05am Start: 05-03-2022 End: 07-05-2022 Levonorgestrel-Ethinyl Estra d (Altavera (28)) 0.15-0.03 mg tablet Discontinued 1 TABLET PO DAILY May 03, 2022 1:00am July 05, 2022 9:05am Start: 05-03-2022 Levonorgestrel -Ethinyl Estrad (Altavera (28)) 0.15-0.03 mg tablet Active 1 TABLET PO DAILY May 03, 2022 12:00am ethinyl estradiol 0.03 mg / norethindrone acetate 1.5 mg oral tablet (7 sources) Estrogen Start: 05-26-2021 End: 04-11-2022 Norethindrone Acet-Ethinyl Est 1.5-30 mg-mcg Take by mouth. 0 05/26/2021 04/11/2022 Discontinued Start: 05-26-2021 Norethindrone Acet-Ethinyl Est 1.5-30 mg-mcg Take by mouth. 0 05/26/2021 Active Start: 05-26-2021 End: 05-03-2022 Norethindrone Ac-Eth Estradi ol (Loestrin 1.5/30 (21)) 1.5-30 mg-mcg tablet Discontinued 1 {tbl} PO DAILY 90 90 4 May 26, 2021 1:00am May 03, 2022 12:40pm Comment on above: Take by mouth. ibuprofen 800 mg oral tablet (4 sources) Nonsteroidal Anti-inflammatory Drug Start: 022 take 1 tablet by mouth every eight hours as needed ibuprofen (MOTRIN) 800 mg tablet Take 800 mg by mouth every 8 hours as needed. 02/01/2022 Active Comment on above: Take 800 mg by mouth every 8 hours as needed. loratadine 10 mg oral tablet (5 sources) Start: loratadine (CLARITIN) 10 mg tablet Take 10 mg by mouth. 07/12/2018 Active Comment on above: Take 10 mg by mouth. nitrofurantoin, macrocrystals 25 mg / nitrofurantoin, monohydrate 75 mg oral capsule (4 sources) Nitrofuran Antibacterial Start: End: take 1 capsule by mouth twice daily at mealtime nitrofurantoin monohydrate and macrocrystal (MACROBID) 100 mg capsule Indications: Urinary frequency Take 1 capsule by mouth twice daily with meals for 7 days. 14 capsule 0 04/11/2022 04/18/2022 Active Start: 02-06-2022 End: 02-11-2022 take 1 capsule by mouth twice daily nitrofurantoin monohydrate and macrocrystal (MACROBID) 100 mg capsule Indications: Urinary frequency Take 1 capsule by mouth twice daily for 5 days. 10 capsule 0 02/06/2022 02/11/2022 Active Start: 06-22-2021 End: 06-29-2021 take 1 capsule by mouth twice daily at mealtime nitrofurantoin monohydrate and macrocrystal (MACROBID) 100 mg capsule Indications: Pain with urination Take 1 capsule by mouth twice daily with meals for 7 days. 14 capsule 0 06/22/2021 06/29/2021 Active Comment on above: Take 1 capsule by mo uth twice daily with meals for 7 days. Take 1 capsule by mo uth twice daily for 5 days. oseltamivir 75 mg oral capsule (2 sources) Neuraminidase Inhibitor Start: 5 End: take 1 capsule by mouth twice daily oseltamivir (TAMIFLU) 75 mg capsule Take 1 capsule by mouth two times a day for 5 days. 10 capsule 04/27/2024 05/02/2024 Active predniSONE 20 mg oral tablet (1 source) Start: take 2 tablets by mouth once daily Prednisone 20 mg tablet Active 40 mg PO DAILY 10 5 0 April 29, 2024 1:00am Completed/Discontinued Medications Medication Drug Class(es) Dates Sig (Normalized) Sig (Original) acetaminophen 325 mg / guaiFENesin 200 mg / phenylephrine hydrochloride 5 mg oral tablet (1 source) alpha-1 Adrenergic Agonist Start: 03-21-2016 Phenylephrine-Acet aminophen-GG (TYLENOL COLD HEAD CONGEST SEVR) 5-325-200 mg tab Indications: Viral URI with cough Take 1 Dose by mouth as directed. 30 tablet 0 03/21/2016 Active Comment on above: Take 1 Dose by mouth as directed. acetaminophen 325 mg / oxyCODONE hydrochloride 5 mg oral tablet (2 sources) Opioid Agonist Start: 02-01-2022 End: 04-11-2022 take 1-2 tablets by mouth every four to six hours as needed for pain oxyCODONE-acetamin ophen (PERCOCET) 5-325 mg tablet TAKE 1-2 TABLETS BY MOUTH EVERY FOUR TO SIX HOURS NEEDED FOR PAIN 0 02/01/2022 04/11/2022 Discontinued Comment on above: TAKE 1-2 TABLETS BY MOUTH EVERY FOUR TO SIX HOURS NEEDED FOR PAIN [id number] 200 actuat albuterol 0.09 mg/actuat metered dose inhaler (7 sources) beta2-Adrenergic Agonist Start: 11-20-2019 PROAIR HFA 108 (90 Base) MCG/ACT AERS as directed albuterol sulfate [id number] Sy Nathanters AT Start: 11-20-2019 PROAIR HFA 108 (90 Base) MCG/ACT AERS as needed as directed ALBUTEROL SULFATE [id number] Izabel Lockett LPN Start: 07-12-2018 albuterol HFA (PROVENTIL HFA, VENTOLIN HFA) 90 mcg/actuation inhaler Inhale 2 Puffs as instructed. 07/12/2018 Active Comment on above: Inhale 2 Puffs as in structed. cefdinir 300 mg oral capsule (5 sources) Cephalosporin Antibacterial Start: 01-18-20 End: 05-27-19 take 1 capsule by mouth twice daily Cefdinir 300 mg capsule Discontinued 300 mg PO TWICE A DAY January 17, 2021 12:00am May 26, 2021 3:06pm doxycycline monohydrate 100 mg oral capsule (4 sources) Tetracycline-class Drug Start: 05-04-19 End: 05-11-19 take 1 capsule by mouth twice daily Doxycycline Monohydrate 100 mg capsule Discontinued 100 mg PO TWICE A DAY 14 7 0 May 04, 2022 1:00am May 10, 2022 1:00am May 11, 2022 1:05am fluconazole 150 mg oral tablet (4 sources) Azole Antifungal Start: 05-03-19 End: 07-06-19 Fluconazole 150 mg tablet Discontinued 150 mg PO .COMPLEX 2 0 May 03, 2022 1:00am July 05, 2022 9:04am 150 mg PO take one po now and repeat in 3 days lidocaine hydrochloride 0.02 mg/mg topical gel (9 sources) Antiarrhythmic, Amide Local Anesthetic Start: 02-12-20 End: 05-03-19 Lidocaine Hcl 2 % jelly Discontinued 1 NMA TOPICAL TWICE A DAY as needed for pain 23 06February 11, 2022 2:38pm May 03, 2022 12:40pm Start: 02-11-2022 End: 05-03-2022 Lidocaine Hcl Discontinued 1 APPLIC TOPICAL TWICE A DAY February 11, 2022 2:38pm May 03, 2022 12:40pm Start: 05-15-2019 End: 01-12-2021 Lidocaine Hcl 2 % jelly Disc ontinued 1 NMA TOPICAL TWICE A DAY as needed for pain 30 May 15, 2019 1:00am January 12, 2021 9:45am medroxyPROGESTERone acetate 10 mg oral tablet (14 sources) Progestin Start: 05-03-2022 End: 07-05-2022 take 1 tablet by mouth once daily Medroxyprogesterone (Provera) 10 mg tablet Discontinued 10 mg PO DAILY 10 May 03, 2022 1:07pm July 05, 2022 9:05am Start: 09-24-2019 End: 10-19-2021 take 1 tablet by mouth once daily Medroxyprogesterone (Provera) 10 mg tablet Discontinued 10 mg PO DAILY 10 3 September 24, 2019 12:00am January 12, 2021 9:45am Start: 03-01-2018 End: 03-11-2018 take 1 tablet by mouth once daily Medroxyprogesterone 10 mg tablet Discontinued 10 mg PO daily 10 10 0 March 01, 2018 1:00am March 10, 2018 1:00am March 11, 2018 1:19am metroNIDAZOLE 500 mg oral tablet (2 sources) Nitroimidazole Antimicrobial Start: 10-24-2022 End: 10-31-2022 take 1 tablet by mouth twice daily Metronidazole 500 mg tablet Discontinued 500 mg PO TWICE A DAY 14 7 0 October 24, 2022 12:00am October 30, 2022 12:00am October 31, 2022 12:03am promethazine hydrochloride 25 mg oral tablet (2 sources) Phenothiazine Start: 02-01-2022 End: 04-11-2022 take 1 tablet by mouth three times daily as needed promethazine (PHENERGAN) 25 mg tablet TAKE 1 TABLET BY MOUTH THREE TIMES A DAY NEEDED 0 02/01/2022 04/11/2022 Discontinued Comment on above: TAKE 1 TABLET BY EVIN THREE TIMES A DAY NEEDED valACYclovir 500 mg oral tablet (20 sources) Herpesvirus Nucleoside Analog DNA Polymerase Inhibitor, Herpes Simplex Virus Nucleoside Analog DNA Polymerase Inhibitor, Herpes Zoster Virus Nucleoside Analog DNA Polymerase Inhibitor Start: 05-03-2022 End: 11-01-2023 take 1 tablet by mouth once daily Valacyclovir 500 mg tablet Discontinued 500 mg PO daily 90 May 04, 2023 12:49pm July 10, 2023 9:22am Start: 02-11-2022 End: 05-03-2022 take 1 tablet by mouth twice daily Valacyclovir (Valtrex) 500 mg tablet Discontinued 500 mg PO TWICE A DAY 10 February 14, 2022 10:29am May 03, 2022 1:10pm Start: 09-26-2019 End: 01-12-2021 take 1 tablet by mouth twice daily Valacyclovir (Valtrex) 500 mg tablet Discontinued 500 mg PO TWICE A DAY 10 September 26, 2019 12:00am January 12, 2021 9:45am Start: 05-15-2019 End: 05-25-2019 Valacyclovir (Valtrex) 1 gra m tablet Discontinued 1000 mg PO TWICE A DAY 20 10 0 May 15, 2019 1:00am May 24, 2019 1:00am May 25, 2019 1:09am initial outbreak Comment on above: Take 500 mg by mouth twice daily. Problems Active Problems Problem Classification Problem Date Documented Da te Episodic/Chronic Asthma (1 source) Asthma; Translations: [Unspecified asthma, uncomplicated] 05-07-2024 Chronic Bacterial infection; unspecified site (5 sources) Chlamydial infection; Translations: [Chlamydial infection, unspecified] 05-04-2022 Episodic Deficiency and other anemia (1 source) Anemia; Translations: [Anemia, unspecified] 02-20-2024 Episodic Comment on above: H/O iron deficiency anemia, does not take Iron Genitourinary symptoms and ill-defined conditions (2 sources) Dysuria; Translations: [Painful micturition, unspecified] Episodic Inflammatory diseases of female pelvic organs (2 sources) Acute vaginitis; Translations: [Vaginitis and vulvovaginitis, unspecified] 05-03-2022 Episodic Other female genital disorders (5 sources) Abnormal uterine bleeding; Translations: [Abnormal uterine and vaginal bleeding, unspecified] 05-03-2022 Chronic Comment on above: aviane Other female genital disorders (4 sources) Abnormal uterine and vaginal bleeding, unspecified; Translations: [Unspecified disorders of menstruation and other abnormal bleeding from female genital tract] Chronic Other gastrointestinal disorders (2 sources) Celiac disease; Translations: [Celiac disease] 04-11-2024 Chronic Other gastrointestinal disorders (2 sources) Celiac disease; Translations: [Celiac disease] Onset: 04-11-2024 Chronic Other upper respiratory infections (6 sources) Viral upper respiratory tract infection; Translations: [Acute upper respiratory infection, unspecified] 01-25-2021 Episodic Otitis media and related conditions (5 sources) Acute otitis media; Translations: [Otitis media, unspecified, unspecified ear] 01-25-2021 Episodic Sprains and strains (3 sources) Sprain of lateral collateral ligament of knee; Translations: [Rupture of lateral collateral ligament of knee] Onset: 11-22-2019 11-22-2019 Episodic Viral infection (9 sources) Genital herpes simplex; 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 Immunizations and screening for infectious disease (1 source) Encounter for screening for infections with a predominantly sexual mode of transmission; Translations: [Encounter for screening for infections with a predominantly sexual mode of transmission] Onset: 02-15-2024 Episodic Influenza (2 sources) Influenza due to Influenza A virus; Translations: [Influenza due to other identified influenza virus with other respiratory manifestations] Onset: 04-29-2024 05-07-2024 Episodic Unclassified (2 sources) Problem Results Test Name Value Interpretation Reference Range Facility Absolute lymphocyte countOrd ered By: Alex Means on 10-03-2024 Lymphocytes Auto (Unsp spec) [#/Vol] 1.65 10*3/uL 0.83-4.51 [facility] Absolute neutrophil countOrd ered By: Alex Means on 10-03-2024 Neutrophils (Bld) [#/Vol] 2.3 10*3/uL 2.0-7.7 [facility] Anion gap in Serum or Plasma Ordered By: Alex Means on 10-03-2024 Anion gap [Moles/Vol] 10 mmol/L 5-15 [facility] Automated lymphocyte count a s percentage of total leukocytesOrdered By: Alex Means on 10-03-2024 Lymphocytes/100 WBC Auto (Unsp spec) 35.1 % 19-41 [facility] BUN/creatinine ratioOrdered By: Alex Means on 10-03-2024 Urea nitrogen/Creatinine [Mass ratio] 7.5 mg/mg Low 10-20 [facility] Basophil percentageOrdered B y: Alex Means on 10-03-2024 Basophils/100 WBC (Bld) 0.4 % 0-1 [facility] Bilirubin, totalOrdered By: Alex Means on 10-03-2024 Bilirubin [Mass/Vol] 1.34 mg/dL High 0.00-1.30 [facility] CBC W/Diff, Automatedon 09-24 Absolute Lymph 1.65 X10 3/uL Normal 0.83-4.51 [facility] Comment on above: Performed By: #### L [id number], L503.6030, L101.9900, L500.4050, L100.9950, L100.0100 ####[facility] [id number] [place], [address] Absolute Neut 2.3 X10 3/uL Normal 2.0-7.7 [facility] Comment on above: Performed By: #### L [id number], [id number], L101.9900, L500.4050, L100.9950, L100.0100 ####[facility] [address] [place], [address] Basophils/100 WBC (Bld) 0.4 % Normal 0-1 [facility] Comment on above: Performed By: #### L [id number], [id number], L101.9900, L500.4050, L100.9950, L100.0100 ####[facility] [address] [place], [address] Eosinophils/100 WBC (Bld) 4.0 % Normal 0-5 [facility] Comment on above: Performed By: #### L [id number], [id number], L101.9900, L500.4050, L100.9950, L100.0100 ####[facility] [id number] [place], [address] Erythrocyte distribution width (RBC) [Ratio] 14.5 % Normal 11.6-14.6 [facility] Comment on above: Performed By: #### L [id number], [id number], L101.9900, L500.4050, L100.9950, L100.0100 ####[facility] [address] [place], [address] Hematocrit (Bld) [Volume fraction] 42.3 % Normal 37-47 [facility] Comment on above: Performed By: #### L [id number], L503.6030, L101.9900, L500.4050, L100.9950, L100.0100 ####[facility] [address] [place], [address] Hemoglobin (Bld) [Mass/Vol] 13.6 g/dL Normal 12.0-15.0 [facility] Comment on above: Performed By: #### L [id number], [id number], L101.9900, L500.4050, L100.9950, L100.0100 ####[facility] [address] [place], [address] IG% 0.200 Normal 0.0-0.9 [facility] Comment on above: Result Comment: IG% - Immature Granulocytes (promyelocytes, myelocytes and metamyelocytes) > 1% indicates that a LEFT SHIFT is Present. Performed By: #### L [id number], L503.6030, L101.9900, L500.4050, L100.9950, L100.0100 ####[facility] [address] [place], [address] Lymphocytes/100 WBC (Bld) 35.1 % Normal 19-41 [facility] Comment on above: Performed By: #### L [id number], [id number], L101.9900, L500.4050, L100.9950, L100.0100 ####[facility] [address] [place], [address] MCH (RBC) [Entitic mass] 27.8 pg Normal 27.0-32.0 [facility] Comment on above: Performed By: #### L [id number], [id number], L101.9900, L500.4050, L100.9950, L100.0100 ####[facility] [address] [place], [address] MCHC (RBC) [Mass/Vol] 32.2 g/dL Normal 32-36 [facility] Comment on above: Performed By: #### L [id number], [id number], L101.9900, L500.4050, L100.9950, L100.0100 ####[facility] [address] [place], [address] MCV (RBC) [Entitic vol] 86.3 fL Normal 81-99 [facility] Comment on above: Performed By: #### L [id number], [id number], L101.9900, L500.4050, L100.9950, L100.0100 ####[facility] [address] [place], [address] Monocytes/100 WBC (Bld) 10.4 % High 0-10 [facility] Comment on above: Performed By: #### L [id number], [id number], L101.9900, L500.4050, L100.9950, L100.0100 ####[facility] [address] [place], [address] Neutrophils/100 WBC (Bld) 49.9 % Normal 47-70 [facility] Comment on above: Performed By: #### L 501.6710, L503.6030, L101.9900, L500.4050, L100.9950, L100.0100 ####[facility] [address] [place], [address] Nucleated RBC (Bld) [#/Vol] 0 10*3/uL Normal 0-5 [facility] Comment on above: Performed By: #### L [id number], L503.6030, L101.9900, L500.4050, L100.9950, L100.0100 ####[facility] [address] [place], [address] Platelet mean volume (Bld) [Entitic vol] 10.0 fL Normal 6.2-12.0 [facility] Comment on above: Performed By: #### L 501.6710, L503.6030, L101.9900, L500.4050, L100.9950, L100.0100 ####[facility] [address] [place], [address] Platelets (Bld) [#/Vol] 270 10*3/uL Normal 150-450 [facility] Comment on above: Performed By: #### L 501.6710, L503.6030, L101.9900, L500.4050, L100.9950, L100.0100 ####[facility] [address] [place], [address] RBC (Bld) [#/Vol] 4.90 10*6/uL Normal 4.2-5.4 [facility] Comment on above: Performed By: #### L 501.6710, L503.6030, L101.9900, L500.4050, L100.9950, L100.0100 ####[facility] [address] [place], [address] RDW SD 45.8 fl High 35.1-43.9 [facility] Comment on above: Performed By: #### L [id number], L503.6030, L101.9900, L500.4050, L100.9950, L100.0100 ####[facility] [address] [place], [address] WBC (Bld) [#/Vol] 4.7 10*3/uL Normal 4.4-11.0 [facility] Comment on above: Performed By: #### L [id number], [id number], L101.9900, L500.4050, L100.9950, L100.0100 ####[facility] [address] [place], [address] CRPon 10-03-2024 C-REACTIVE PROT < 3.00 Normal 0.0-3.0 [facility] Comment on above: Performed By: #### L [id number], [id number], L101.9900, L500.4050, L100.9950, L100.0100 ####[facility] [address] [place], [address] Carbon dioxide, total [Moles /volume] in Central venous bloodOrdered By: Alex Means on 10-03-2024 CO2 [Moles/Vol] 26.5 mmol/L 21.0-32.0 [facility] Chloride assayOrdered By: Crystal Means on 10-03-2024 Chloride [Moles/Vol] 104 mmol/L 98-108 [facility] Comprehensive Metabolic Prof ilon 10-03-2024 Albumin [Mass/Vol] 4.3 g/dL Normal 3.5-5.0 [facility] Comment on above: Performed By: #### L 501.6710, L503.6030, L101.9900, L500.4050, L100.9950, L100.0100 ####[facility] [address] [place], [address] Albumin/Globulin [Mass ratio] 1.5 {ratio} Normal 0.9-2.4 [facility] Comment on above: Performed By: #### L 501.6710, L503.6030, L101.9900, L500.4050, L100.9950, L100.0100 ####[facility] [address] [place], [address] ALK PHOS 64 U/L Normal 35-104 [facility] Comment on above: Performed By: #### L [id number], L503.6030, L101.9900, L500.4050, L100.9950, L100.0100 ####[facility] [address] [place], [address] ALT [Catalytic activity/Vol] 19 U/L Normal <=34 [facility] Comment on above: Performed By: #### L 501.6710, L503.6030, L101.9900, L500.4050, L100.9950, L100.0100 ####[facility] [address] [place], [address] AST [Catalytic activity/Vol] 24 U/L Normal <=31 [facility] Comment on above: Performed By: #### L [id number], [id number], L101.9900, L500.4050, L100.9950, L100.0100 ####[facility] [address] [place], [address] Bilirubin [Mass/Vol] 1.34 mg/dL High 0.00-1.30 [facility] Comment on above: Performed By: #### L [id number], [id number], L101.9900, L500.4050, L100.9950, L100.0100 ####[facility] [address] [place], [address] BUN/CRE 7.5 RATIO Low 10-20 [facility] Comment on above: Performed By: #### L 501.6710, L503.6030, L101.9900, L500.4050, L100.9950, L100.0100 ####[facility] [address] [place], [address] Calcium [Mass/Vol] 9.5 mg/dL Normal 7.6-11.0 [facility] Comment on above: Performed By: #### L 501.6710, L503.6030, L101.9900, L500.4050, L100.9950, L100.0100 ####[facility] [address] [place], [address] Chloride [Moles/Vol] 104 mmol/L Normal 98-108 [facility] Comment on above: Performed By: #### L 501.6710, L503.6030, L101.9900, L500.4050, L100.9950, L100.0100 ####[facility] [address] [place], [address] CO2 [Moles/Vol] 26.5 mmol/L Normal 21.0-32.0 [facility] Comment on above: Performed By: #### L 501.6710, L503.6030, L101.9900, L500.4050, L100.9950, L100.0100 ####[facility] [address] [place], [address] Creatinine [Mass/Vol] 1.06 mg/dL Normal 0.70-1.20 [facility] Comment on above: Performed By: #### L 501.6710, L503.6030, L101.9900, L500.4050, L100.9950, L100.0100 ####[facility] [address] [place], [address] ECRCL 80.95 ml/min Normal 50-250 [facility] Comment on above: Performed By: #### L 501.6710, L503.6030, L101.9900, L500.4050, L100.9950, L100.0100 ####[facility] [address] [place], [address] GAP 10 Normal 5-15 [facility] Comment on above: Performed By: #### L 501.6710, L503.6030, L101.9900, L500.4050, L100.9950, L100.0100 ####[facility] [address] [place], [address] GFR/1.73 sq M.predicted among non-blacks MDRD (S/P/Bld) [Vol rate/Area] 76 mL/min/{1.73_m2} Normal >60 [facility] Comment on above: Result Comment: mL/m in/1.73m2 CKD-EPI Creatinine Equation (2020) Performed By: #### L 501.6710, L503.6030, L101.9900, L500.4050, L100.9950, L100.0100 ####[facility] [address] [place], [address] Globulin (S) [Mass/Vol] 2.9 g/dL Normal 2.2-4.2 [facility] Comment on above: Performed By: #### L 501.6710, L503.6030, L101.9900, L500.4050, L100.9950, L100.0100 ####[facility] [address] [place], [address] Glucose [Mass/Vol] 91 mg/dL Normal 70-99 [facility] Comment on above: Performed By: #### L 501.6710, L503.6030, L101.9900, L500.4050, L100.9950, L100.0100 ####[facility] [address] [place], [address] Potassium [Moles/Vol] 4.4 mmol/L Normal 3.3-5.1 [facility] Comment on above: Performed By: #### L 501.6710, L503.6030, L101.9900, L500.4050, L100.9950, L100.0100 ####[facility] [address] [place], [address] Sodium [Moles/Vol] 140 mmol/L Normal 133-145 [facility] Comment on above: Performed By: #### L 501.6710, L503.6030, L101.9900, L500.4050, L100.9950, L100.0100 ####[facility] [address] [place], [address] T PROT 7.2 g/dL Normal 5.9-8.4 [facility] Comment on above: Performed By: #### L 501.6710, L503.6030, L101.9900, L500.4050, L100.9950, L100.0100 ####[facility] [address] [place], [address] Urea nitrogen [Mass/Vol] 8 mg/dL Normal 4-19 [facility] Comment on above: Performed By: #### L 501.6710, L503.6030, L101.9900, L500.4050, L100.9950, L100.0100 ####[facility] [address] [place], [address] Eosinophil percentageOrdered By: Alex Means on 10-03-2024 Eosinophils/100 WBC (Bld) 4.0 % 0-5 [facility] Erythrocyte Sed Rateon 10-03 SED RATE 2 mm/hr Normal 0-30 [facility] Comment on above: Performed By: #### L 501.6710, L503.6030, L101.9900, L500.4050, L100.9950, L100.0100 ####[facility] [address] [place], [address] Erythrocyte distribution wid th ratioOrdered By: Alex Means on 10-03-2024 Erythrocyte distribution width (RBC) [Ratio] 14.5 % 11.6-14.6 [facility] Erythrocyte distribution wid th standard deviationOrdered By: Alex Means on 10-03-2024 Erythrocyte distribution width (RBC) [Ratio] 45.8 fl High 35.1-43.9 [facility] Erythrocyte sedimentation ra teOrdered By: Alex Means on 10-03-2024 ESR (Bld) [Velocity] 2 mm/h 0-30 [facility] Ferritinon 10-03-2024 Ferritin [Mass/Vol] 74 ng/mL Normal 22-378 [facility] Comment on above: Performed By: #### L 503.6550, L504.2610 #### [facility] [address] [place], [address] Glomerular filtration rate ( GFR) estimation/1.73 sq m using serum, plasma, or whole bOrdered By: Alex Means on 10-03-2024 GFR/1.73 sq M.predicted among non-blacks MDRD (S/P/Bld) [Vol rate/Area] 76 mL/min/{1.73_m2} >60 [facility] Comment on above: mL/min/1.73m2 CKD-EP I Creatinine Equation (2020) Hematocrit Auto (Bld) [Volum e fraction]Ordered By: Alex Means on 10-03-2024 Hematocrit (Bld) [Volume fraction] 42.3 % 37-47 [facility] Hemoglobin measurementOrdere d By: Alex Means on 10-03-2024 Hemoglobin (Bld) [Mass/Vol] 13.6 g/dL 12.0-15.0 [facility] Immature granulocytes/100 WB C Auto (Bld)Ordered By: Alex Means on 10-03-2024 Immature granulocytes/100 WBC (Bld) 0.200 % 0.0-0.9 [facility] Comment on above: IG% - Immature Granu locytes (promyelocytes, myelocytes and metamyelocytes) > 1% indicates that a LEFT SHIFT is Present. Iron+Iron Binding Capacityon 10-03-2024 Iron [Mass/Vol] 151 ug/dL Normal 50-170 [facility] Comment on above: Performed By: #### L 501.6710, L503.6030, L101.9900, L500.4050, L100.9950, L100.0100 ####[facility] [address] [place], [address] UIBC 198 ug/dL Low 228-428 [facility] Comment on above: Performed By: #### L 501.6710, L503.6030, L101.9900, L500.4050, L100.9950, L100.0100 ####[facility] [address] [place], [address] LDHon 10-03-2024 LDH 163 U/L Normal 84-246 [facility] Comment on above: Order Comment: 1 Performed By: #### L 503.6550, L504.2610 #### [facility] [address] [place], [address] Laboratory - Chemistry and C hemistry - challengeOrdered By: Alex Means on 10-03-2024 AST [Catalytic activity/Vol] 24 U/L <32 [facility] Lactate dehydrogenase (LDH) measurementOrdered By: Alex Means on 10-03-2024 LDH [Catalytic activity/Vol] 163 U/L 84-246 [facility] MCV (mean corpuscular volume ) determinationOrdered By: Alex Means on 10-03-2024 MCV (RBC) [Entitic vol] 86.3 fL 81-99 [facility] Mean corpuscular hemoglobin (MCH) determinationOrdered By: Alex Means on 10-03-2024 MCH (RBC) [Entitic mass] 27.8 pg 27.0-32.0 [facility] Mean corpuscular hemoglobin concentration (MCHC) determinationOrdered By: Alex Means on 10-03-2024 MCHC (RBC) [Mass/Vol] 32.2 g/dL 32-36 [facility] Mean platelet volume determi nationOrdered By: Alex Means on 10-03-2024 Platelet mean volume (Bld) [Entitic vol] 10.0 fL 6.2-12.0 [facility] Monocyte percentageOrdered B y: Alex Means on 10-03-2024 Monocytes/100 WBC (Bld) 10.4 % High 0-10 [facility] Neutrophil percentageOrdered By: Alex Means on 10-03-2024 Neutrophils/100 WBC (Bld) 49.9 % 47-70 [facility] Nucleated red blood cell per centageOrdered By: Alex Means on 10-03-2024 Nucleated RBC/100 WBC (Bld) [Ratio] 0 % 0-5 [facility] Oncology Visit Reporton 07 0 Oncology Visit Report [facility] [place] [address] OFFICE VISIT Date of Service: 10/03/24 1401 MR#: [id number] Acct: [id number] Name: YENNY ZEE Rep #: [id number] : 2000 From: Alex Means MD Age/Sex: 23/F [place] [facility] Status: Signed HPI Subjective Date of Service 10/03/24 Chief Complaint F/u for Iron deficiency anemia History of Present Illness 23y.o.woman was found to have anemia and referred for evaluation. She has been Iron deficient about 3 yrs ago, was started on Oral Iron, got constipation so not taking it. She was found to have severe Iron deficiency anemia with Positive Celiac antibody. She got IV Iron Ferrlecit on 03/05/2024. 03/12/2024, 03/21/2024 and 03/28/2024. Had blood work done and comes for follow up. Feels well. [facility] Medical History Chlamydia 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 Surgical History History of knee surgery History of placement of ear tubes Social History current occupation: [employer] sexually active: No other: Plays basketball, volleyball, and track Smoking Status: Never smoker alcohol intake: current alcohol intake frequency: a few times a month substance use type: does not use seatbelt use: always additional social history: Works at [employer] in the summer Intake Vital Signs 04/11/24 13:30 10/03/24 14:03 Height 5 ft 7 in 5 ft 7 in Weight: 72.376 kg BMI 25.0 BP 124/80 H Blood Pressure Location Rt brachial Position Sitting Respiration 15 Pulse 75 Pulse Source Monitor Pulse Oximetry (%) 100 Oxygen Delivery Method room air Intake Accompanied by: Self Is patient in pain?: No Allergies No Known Allergies Allergy (Verified 10/03/24 14:05) Medications ???Medication ???Instructions ???Recorded ???Confirmed ???Type valacyclovir 500 mg tablet 500 mg PO QDAY #90 tabs 11/01/23 0 10/03/24 Rx azelastine 137 mcg (0.1 %) nasal 2 spray intranasal BID #30 mL 06/1810/03/24 Rx spray codeine 10 mg-guaifenesin 100 mg/5 10 ml PO 4X/DAY PRN flu symptoms 7 04/29/24 10/03/24 Rx mL oral liquid (Guaifenesin AC) days #280 mL prednisone 20 mg tablet 40 mg (2 x 20 mg) PO DAILY 5 days 04/29/24 10/03/24 Rx #10 tabs levonorgestrel-ethi nyl estradiol 1 tab PO QDAY #84 tabs 09/09/24 Rx 0.1 mg-20 mcg tablet (Aviane) Laboratory Tests 02/20/24 02/20/24 04/11/24 14:07 14:10 12:37 WBC 5.5 4.0 L RBC 4.90 Hgb 9.9 L 12.2 Hct 32.8 L 39.4 MCV 73.4 L Plt Count 412 254 Absolute Neuts (auto) 2.3 Absolute Lymphs (auto) Sodium 139 Potassium 4.0 Chloride 107 Carbon Dioxide 27.0 Anion Gap BUN 8 Creatinine 1.18 H Glucose 96 Calcium 9.1 Phosphorus 2.7 Magnesium 2.1 Iron 25 L 142 TIBC 526 H 332 Iron Saturation 4.8 L 42.8 Ferritin 4 L 97 Total Bilirubin 1.00 AST 21 ALT 29 Alkaline Phosphatase 54 Lactate Dehydrogenase 142 C-React Prot Ext Range < 2.90 Total Protein 7.3 Albumin 3.8 Globulin 3.5 Vitamin B12 281 Folate 11.10 Endomysial IgA Ab Negative Tiss Transglutamin IgG 6 H Tiss Transglutamin IgA <2 Anti-Gliadin IgG Ab 5 Anti-Gliadin IgA Ab 5 10/03/24 13:17 WBC 4.7 RBC Hgb 13.6 Hct 42.3 MCV 86.3 Plt Count 270 Absolute Neuts (auto) 2.3 Absolute Lymphs (auto) 1.65 Sodium 140 Potassium 4.4 Chloride 104 Carbon Dioxide 26.5 Anion Gap 10 BUN 8 Creatinine 1.06 Glucose 91 Calcium 9.5 Phosphorus Magnesium Iron 151 TIBC 349 Iron Saturation 43.3 Ferritin 74 Total Bilirubin 1.34 H AST 24 ALT 19 Alkaline Phosphatase 64 Lactate Dehydrogenase 163 C-React Prot Ext Range < 3.00 Total Protein 7.2 Albumin 4.3 Globulin 2.9 Vitamin B12 Folate Endomysial IgA Ab Tiss Transglutamin IgG Tiss Transglutamin IgA Anti-Gliadin IgG Ab Anti-Gliadin IgA Ab Exam Physical Exam Const alert, oriented x3 and no apparent distress Coding Level of Care Code Off vis,est,level 3 Exam Problem Focused Diagnoses 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 Plan: To continue Oral Iron 2-3 tablets a week. (2) Celiac disease: Status: Chronic Plan: To continue Gluten free diet. Orders: Orders CBC W/Diff, Automated 04/08/25 D50.9 - Iron (more content not included)... Normal [facility] Platelet countOrdered By: Crystal Means on 10-03-2024 Platelets (Bld) [#/Vol] 270 10*3/uL 150-450 [facility] Potassium measurement (mass/ volume)Ordered By: Alex Means on 10-03-2024 Potassium (Unsp spec) [Mass/Vol] 4.4 mmol/L 3.3-5.1 [facility] RBC Auto (Bld) [#/Vol]Ordere d By: Alex Means on 10-03-2024 RBC (Bld) [#/Vol] 4.90 10*6/uL 4.2-5.4 [facility] Retic Panelon 10-03-2024 IM RET FRACTION 9.00 Normal 3.00-15.90 [facility] Comment on above: Performed By: #### L 501.6710, L503.6030, L101.9900, L500.4050, L100.9950, L100.0100 ####[facility] [address] [place], [place], [id number]([phone]) RET-HE 31.6 pg Normal 30-35 [facility] Comment on above: Performed By: #### L 501.6710, L503.6030, L101.9900, L500.4050, L100.9950, L100.0100 ####[facility] [address] [place], [address] Retic Count 1.23 Normal 0.5-1.5 [facility] Comment on above: Performed By: #### L 501.6710, L503.6030, L101.9900, L500.4050, L100.9950, L100.0100 ####[facility] [address] [place], [place], [id number] Reticulocyte hemoglobin equi valent (RET-He) measurementOrdered By: Alex Means on 10-03-2024 Hemoglobin (Reticulocytes) [Entitic mass] 31.6 pg 30-35 [facility] Reticulocytes Auto (Bld) [#/ Vol]Ordered By: Alex Means on 10-03-2024 Reticulocytes/100 RBC (Bld) 1.23 % 0.5-1.5 [facility] Serum creatinine measurement (mass/volume)Ordered By: Alex Means on 10-03-2024 Creatinine [Mass/Vol] 1.06 mg/dL 0.70-1.20 [facility] Serum globulin measurementOr dered By: Alex Means on 10-03-2024 Globulin (S) [Mass/Vol] 2.9 g/dL 2.2-4.2 [facility] Serum glucose measurement (m ass/volume)Ordered By: Alex Means on 10-03-2024 Glucose [Mass/Vol] 91 mg/dL 70-99 [facility] Serum or plasma alanine carlson otransferase (ALT) measurementOrdered By: Alex Means on 10-03-2024 ALT [Catalytic activity/Vol] 19 U/L <35 [facility] Serum or plasma albumin ean urement (mass/volume)Ordered By: Alex Means on 10-03-2024 Albumin [Mass/Vol] 4.3 g/dL 3.5-5.0 [facility] Serum or plasma albumin/glob ulin mass ratioOrdered By: Alex Means on 10-03-2024 Albumin/Globulin [Mass ratio] 1.5 {ratio} 0.9-2.4 [facility] Serum or plasma alkaline george sphatase measurementOrdered By: Alex Means on 10-03-2024 ALP [Catalytic activity/Vol] 64 U/L 35-104 [facility] Serum or plasma calcium ean urement (mass/volume)Ordered By: Alex Means on 10-03-2024 Calcium [Mass/Vol] 9.5 mg/dL 7.6-11.0 [facility] Serum or plasma ferritin christy surement (mass/volume)Ordered By: Alex Means on 10-03-2024 Ferritin [Mass/Vol] 74 ng/mL 22-378 [facility] Serum or plasma iron saturat ion measurement (mass fraction)Ordered By: Alex Means on 10-03-2024 Iron saturation [Mass fraction] 43.0 % 13-59 [facility] Serum or plasma urea nitroge n measurement (mass/volume)Ordered By: Aelx Means on 10-03-2024 Urea nitrogen [Mass/Vol] 8 mg/dL 4-19 [facility] Sodium levelOrdered By: Juaquin Means on 10-03-2024 Sodium [Moles/Vol] 140 mmol/L 133-145 [facility] Total proteinOrdered By: Jose Means on 10-03-2024 Protein [Mass/Vol] 7.2 g/dL 5.9-8.4 [facility] White blood cell (WBC) count Ordered By: Alex Means on 10-03-2024 WBC (Bld) [#/Vol] 4.7 10*3/uL 4.4-11.0 [facility] Chest PA and Lateralon 04-29 Chest PA and Lateral [facility] Services [address] [place] [id number] Chest PA and Lateral MR#: [id number] Acct: [id number] Name: YENNY ZEE Rep #: [id number] : 2000 F 23 From: Primo Solorzano DO PCP: Care Physician,No Primary Status: REG ER Study: Chest PA and Lateral Date of Exam: 04/29/24 Exam# [id number] Ordering Dr: Darius Hernandez DO PROCEDURE: CHEST PA AND LATERAL REASON FOR EXAM: Cough. Influenza A TECHNIQUE: Frontal and lateral views of the chest. COMPARISON: None. FINDINGS: Lungs are well aerated. No focal airspace consolidation, pneumothorax or pleural effusion is seen. Remaining lung markings otherwise appears clear. Heart size and great vessels are within normal limits. The osseous thorax is intact. RAD/Chest PA and Lateral IMPRESSION: No acute cardiopulmonary process identified. Reading Location: [facility] CC: Darius Hernandez DO; No Primary Care Physician Television Mechanic: Signed Normal [facility] Emergency Department Summary on 04-29-2024 Emergency Department Summary [facility] Medical Records Department [address] [place] [address] Emergency Department Summary 04/29/24 MR#: [id number] Acct: [id number] Name: YENNY ZEE Rep #: [id number] : 2000 23 From: Darius Hernandez DO PCP: Care Physician,No Primary Status:DEP ER Location: ED HPI History of Present Illness Chief Complaint: Cough Informant: patient Narrative Narrative: Patient is a 23-year-old female with past medical history of sports induced asthma. She reports she has had 3 to 4 days of nasal congestion sore throat cough headache and fatigue. She reports she went to an outside facility where she tested positive for influenza and was placed on Tamiflu. She states has been taking the medication as directed but her symptoms are not improving and she is concerned she may have pneumonia with this and therefore comes in for evaluation 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 Home Medications ???Medication ???Instructions ???Recorded ???Last Taken ???Type levonorgestrel-ethi nyl estradiol 1 tab PO QDAY #84 tabs 07/10/23 Un known Rx 0.1 mg-20 mcg tablet (Aviane) valacyclovir 500 mg tablet 500 mg PO QDAY #90 tabs 11/01/23 U nknown Rx azelastine 137 mcg (0.1 %) nasal 2 spray intranasal BID #30 mL 06/18 Unknown Rx spray codeine 10 mg-guaifenesin 100 mg/5 10 ml PO 4X/DAY PRN flu symptoms 7 04/29/24 Unknown Rx mL oral liquid (Guaifenesin AC) days #280 mL prednisone 20 mg tablet 40 mg (2 x 20 mg) PO DAILY 5 days 04/29/24 Unknown Rx #10 tabs Allergy/AdvReac Type Severity Reaction Status Date / Time No Known Allergies Allergy Verified 04/11/24 13:34 Surgical History History of knee surgery History of placement of ear tubes Social History current occupation: [employer] sexually active: No other: Plays basketball, volleyball, and track Smoking Status: Never smoker alcohol intake: current alcohol intake frequency: a few times a month substance use type: does not use seatbelt use: always additional social history: Works at [employer] in the summer ROS ROS ED Constitutional Constitutional ED: Reports chills and fever(s) Eyes Eyes: Denies blurry vision or change in vision ENT ENT ED: Reports rhinorrhea and sore throat Cardiovascular Cardiovascular: Denies chest pain Respiratory/Chest Respiratory/Chest: Reports cough and dyspnea Gastrointestinal Gastrointestinal: Denies abdominal pain, diarrhea, nausea or vomiting Genitourinary Genitourinary ED: Denies dysuria Musculoskeletal Musculoskeletal: Reports myalgias Integumentary Denies rash Neurologic Neurologic: Reports headache(s) Hematologic/Lymphat ic Hematologic/Lymphat ic: Denies easy bleeding or easy bruising Allergic/Immunologi c Allergic/Immunologi c ED: Denies mouth swelling or tongue swelling EXAM Physical Exam Const Vital Signs: 04/29/24 05:05 04/29/24 05:05 04/29/24 06:26 Temperature 99.4 F H 99.5 F H Temperature Source Oral Pulse Rate 82 85 90 Respiratory Rate 16 18 18 Respiratory Effort Respiratory Depth Respiratory Pattern Blood Pressure 133/81 H 102/91 H 103/60 Blood Pressure Mean 98 94 74 Pulse Ox 100 100 98 Oxygen Delivery Method Room Air Room Air 04/29/24 06:26 Temperature Temperature Source Pulse Rate Respiratory Rate Respiratory Effort Normal Non-Labored Respiratory Depth Normal Respiratory Pattern Normal Blood Pressure Blood Pressure Mean Pulse Ox Oxygen Delivery Method Room Air Positive well nourished and well developed General Appearance ED: well developed; Negative for pallor HEENT HEENT Narrative: Nasal mucosa is hyperemic and boggy Cobblestoning is noted in the posterior pharynx consistent with sinus drainage without airway edema or compromise Bilateral TMs are retracted but show no secondary findings to suggest infection Eyes PERRL and EOMs intact bilaterally General Eye ED: Negative for scleral icterus Neck supple and no JVD Neck Narrative: No nuchal rigidity or meningeal signs Chest Wall palpation of chest normal Resp normal respiratory effort Resp Narrative: Breath sounds are diminished throughout with faint rhonchi in the bilateral bases but no signs of respiratory distress Cardio regular rate and regular rhythm GI normal to inspection, nondistended, normoactive bowel sounds, non-tender, non-distended and no masses Auscultation: normoactive bowel sounds Palpation: soft Extremity normal to inspection Extremity Narrative: No asymmetr (more content not included)... Normal [facility] 04-28-2024 [facility] Telephone (UCTR) ---- YENNY ZEE ([id number]) 2 F Date Time Provider Department 04/28/24 REMIGIO RAMÍREZ [facility] During your visit today, we recorded the following information about you: Remigio Ramírez PA 04/28/2024 8:05 AM Signed Please contact patient let her know she tested positive for influenza A. Take Tamiflu as prescribed at visit yesterday Ernestina Youssef MA 04/28/2024 11:02 AM Signed Pt was notified of the results. Pt verbalized understanding. Ernestina Youssef MA Allergies As of Date: 04/28/2024 (No Known Allergies) Date Reviewed: 04/27/2024 Reviewed by: Consuelo Graf MA - Fully Assessed Reason for Visit: Results [95] Prescriptions as of 04/28/2024 - Levonorgestrel-Ethi nyl Estrad 0.1mg - 20mcg per tablet Take 1 tablet by mouth every afternoon. - oseltamivir (TAMIFLU) 75 mg capsule Take 1 capsule by mouth two times a day for 5 days. - aspirin, enteric coated (ASPIRIN, ENTERIC COATED) 81 mg EC tablet Take 81 mg by mouth once daily. - ibuprofen (MOTRIN) 800 mg tablet Take 800 mg by mouth every 8 hours as needed. - loratadine (CLARITIN) 10 mg tablet Take 10 mg by mouth. - albuterol HFA (PROVENTIL HFA, VENTOLIN HFA) 90 mcg/actuation inhaler Inhale 2 Puffs as instructed. Problem List As Of Date: 04/28/2024 (None) Encounter Status:Closed by ERNESTINA YOUSSEF on 04/28/24 [facility] CNOVon 04-27-2024 CNOV Office Visit (WSTR) ---- YENNY ZEE ([id number]) 2 F Date Time Provider Department 04/27/24 1:45 PM REMIGIO RAMÍREZ [facility] During your visit today, we recorded the following information about you: Temperature Pulse Respiration Blood pressure 102.2 degrees 114/minute 18/minute 113/61 Weight 70.2 kg Remigio Ramírez PA 04/27/2024 2:00 PM Signed This note was created using NoteWriter. Subjective Yennybrianna Zee is a 23 year old female. HPI 23-year-old female presents for fever, chills, body aches, cough since yesterday. Patient states yesterday she started getting chills and cough. She had a fever of 101 ?F last night. She states she has had a consistent fever for since yesterday evening. She did take Tylenol around 4 AM. She is also taking Mucinex for symptoms. No nasal congestion. No sore throat. No vomiting or diarrhea. No sick contacts that she is aware of. No other complaint. PAST MEDICAL HISTORY Diagnosis Date Exercise-induced asthma PAST SURGICAL HISTORY Procedure Laterality Date KNEE SURGERY HX Right LCL repair ALLERGIES Patient has no known allergies. MEDICATIONS Levonorgestrel-Ethi nyl Estrad 0.1mg - 20mcg per tablet Take 1 tablet by mouth every afternoon. oseltamivir (TAMIFLU) 75 mg capsule Take 1 capsule by mouth two times a day for 5 days. aspirin, enteric coated (ASPIRIN, ENTERIC COATED) 81 mg EC tablet Take 81 mg by mouth once daily. (Patient not taking: Reported on 04/27/2024) ibuprofen (MOTRIN) 800 mg tablet Take 800 mg by mouth every 8 hours as needed. (Patient not taking: Reported on 04/27/2024) loratadine (CLARITIN) 10 mg tablet Take 10 mg by mouth. (Patient not taking: Reported on 04/27/2024) albuterol HFA (PROVENTIL HFA, VENTOLIN HFA) 90 mcg/actuation inhaler Inhale 2 Puffs as instructed. (Patient not taking: Reported on 04/27/2024) No family history on file. Social History Tobacco Use Smoking status: Never Smokeless tobacco: Never Review of Systems Constitutional: Positive for chills and fever. HENT: Negative for congestion, ear pain and sore throat. Respiratory: Positive for cough. Negative for shortness of breath. Cardiovascular: Negative for chest pain. Gastrointestinal: Negative for diarrhea and vomiting. Musculoskeletal: Positive for myalgias. Objective BP 113/61 Pulse 114 Temp (!) 39 ?C (102.2 ?F) Resp 18 Wt 70.2 kg (154 lb 12.2 oz) LMP 01/07/2022 (Within Days) SpO2 99% Physical Exam Vitals and nursing note reviewed. Constitutional: General: She is not in acute distress. Appearance: Normal appearance. She is not toxic-appearing. HENT: Right Ear: Tympanic membrane and ear canal normal. Left Ear: Tympanic membrane and ear canal normal. Nose: Nose normal. Mouth/Throat: Mouth: Mucous membranes are moist. Eyes: Conjunctiva/sclera: Conjunctivae normal. Cardiovascular: Rate and Rhythm: Normal rate and regular rhythm. Pulmonary: Effort: Pulmonary effort is normal. Breath sounds: Normal breath sounds. No wheezing, rhonchi or rales. Skin: General: Skin is warm and dry. Neurological: Mental Status: She is alert. Assessment and Plan ASSESSMENT/PLAN: 1. URI, acute - ICD9: 465.9, ICD10: J06.9 - Discussed viral etiology and rationale for treatment. - Symptomatic treatment with prn analgesia - Supportive care with fluids and rest - The patient may also use OTC cough and cold meds as needed. - COVID AND INFLUENZA A/B AND RSV PCR, ROUTINE -Suspect influenza. Rx Tamiflu sent. Patient will start this tomorrow if flu positive. No history of CKD. Diagnosis and treatment plan were discussed and questions were answered to the patient's satisfaction. Pt acknowledged understanding of concepts and follow up plan. Specific signs and symptoms that would indicate the need for higher level of care were discussed in detail warranting prompt ER evaluation. GITA Le Allergies As of Date: 04/27/2024 (No Known Allergies) Date Reviewed: 04/27/2024 Reviewed by: Consuelo Graf MA - Fully Assessed Reason for Visit: Flu Like Symptoms [267] Cmt: Cough, fever, chills, bodyaches x1 day Primary Visit Diagnosis:URI, acute [J06.9] Order(s):COVID AND INFLUENZA A/B AND RSV PCR, ROUTINE [SQCVFLRS] Order #: [id number]. #:[id number] oseltamivir (TAMIFLU) 75 mg capsuleTake 1 capsule by mouth two times a day for 5 days.Disp: 10 capsuleRfl: 0 Prescriptions as of 04/27/2024 - Levonorgestrel-Ethi nyl Estrad 0.1mg - 20mcg per tablet Take 1 tablet by mouth every afternoon. - oseltamivir (TAMIFLU) 75 mg capsule Take 1 capsule by mouth two times a day for 5 days. - aspirin, enteric coated (ASPIRIN, ENTERIC COATED) 81 mg EC tablet Take 81 mg by mouth once daily. - ibuprofen (MOTRIN) 800 mg tablet Take 800 mg by mouth every 8 hours as needed. - loratadine (CLARITIN) 10 mg tablet Take 10 mg by mouth. (more content not included)... Normal [facility] COVID AND INFLUENZA A/B AND RSV PCR, ROUTINEon 04-27-2024 SARS-CoV-2 (COVID-19) RNA DONALDO+probe Ql (Unsp spec) SARS-COV-2 (AGENT OF COVID-19) RNA: Not detected INFLUENZA A RNA: Detected INFLUENZA B RNA: Not detected RESPIRATORY SYNCYTIAL VIRUS (RSV) RNA: Not detected Abnormal [facility] Comment on above: Performed By: #### C VFLRS #### [facility] CLIA [id number] [address] [place] [address] OF [facility] CBC W/Diff, Automatedon 03-27 Anisocytosis Ql (Bld) 2+ Normal [facility] Comment on above: Performed By: #### L 700.6800 #### [facility] [address] [place], [place], [id number] OVALOCYTE 1+ Normal [facility] Comment on above: Performed By: #### L 700.6800 #### [facility] [address] [place], [address] CRPon 04-11-2024 C-REACTIVE PROT < 2.90 Normal 0.0-3.0 [facility] Comment on above: Order Comment: UNKNO WN1N Result Comment: C-Re active Protein (CRP) provides useful information for the diagnosis, therapy and monitoring of inflammatory processes and associated diseases. For the evaluation of Relative Risk for Cardiovascular Disease, a High Sensitivity CRP (HSCRP) should be ordered. Performed By: #### L 700.6800 #### [facility] [address] [place], [address] Comprehensive Metabolic Prof ilon 04-11-2024 Albumin [Mass/Vol] 3.8 g/dL Normal 3.2-5.0 [facility] Comment on above: Order Comment: UNKNO WN1N Performed By: #### L 700.6800 #### [facility] [address] [place], [address] Albumin/Globulin [Mass ratio] 1.1 {ratio} Normal 0.9-2.4 [facility] Comment on above: Order Comment: UNKNO WN1N Performed By: #### L .6800 #### [facility] [address] [place], [address] ALK P 54 U/L Normal 45-117 [facility] Comment on above: Order Comment: UNKNO WN1N Performed By: #### L .6800 #### [facility] [address] [place], [address] ALT [Catalytic activity/Vol] 29 U/L Normal 13-56 [facility] Comment on above: Order Comment: UNKNO WN1N Performed By: #### L .6800 #### [facility] [address] [place], [address] AST [Catalytic activity/Vol] 21 U/L Normal 15-37 [facility] Comment on above: Order Comment: UNKNO WN1N Performed By: #### L .6800 #### [facility] [address] [place], [address] Bilirubin [Mass/Vol] 1.00 mg/dL Normal 0.20-1.00 [facility] Comment on above: Order Comment: UNKNO WN1N Result Comment: For patients on eltrombopag therapy, use of Dimension [place] TBIL is not recommended. Performed By: #### L 700.6800 #### [facility] [address] [place], [address] BUN/CRE 6.8 RATIO Low 10-20 [facility] Comment on above: Order Comment: UNKNO WN1N Performed By: #### L .6800 #### [facility] [address] [place], [address] CA,Total 9.1 mg/dL Normal 8.5-10.1 [facility] Comment on above: Order Comment: UNKNO WN1N Performed By: #### L 700.6800 #### [facility] [address] [place], [address] Chloride [Moles/Vol] 107 mmol/L Normal 98-107 [facility] Comment on above: Order Comment: UNKNO WN1N Performed By: #### L .6800 #### [facility] [address] [place], [address] CO2 [Moles/Vol] 27.0 mmol/L Normal 21.0-32.0 [facility] Comment on above: Order Comment: UNKNO WN1N Performed By: #### L .6800 #### [facility] [address] [place], [address] Creatinine [Mass/Vol] 1.18 mg/dL High 0.55-1.02 [facility] Comment on above: Order Comment: UNKNO WN1N Result Comment: The validity of the calculated GFR GFRAA in patients over 70 years has not been determined. Clinical correlation is essential. Performed By: #### L 700.6800 #### [facility] [address] [place], [address] ECRCL 72.72 ml/min Normal [facility] Comment on above: Order Comment: UNKNO WN1N Performed By: #### L .6800 #### [facility] [address] [place], [address] EST GFR - AA 74 mL/min Normal >60 [facility] Comment on above: Order Comment: UNKNO WN1N Result Comment: Afri can [place] GFR Calc Performed By: #### L .6800 #### [facility] [address] [place], [address] GAP 6 Normal 5-15 [facility] Comment on above: Order Comment: UNKNO WN1N Performed By: #### L 700.6800 #### [facility] [address] [place], [address] GFR/1.73 sq M.predicted among non-blacks MDRD (S/P/Bld) [Vol rate/Area] 61 mL/min/{1.73_m2} Normal >60 [facility] Comment on above: Order Comment: UNKNO WN1N Result Comment: Non- GFR Calc Performed By: #### L 700.6800 #### [facility] [address] [place], [address] Globulin (S) [Mass/Vol] 3.5 g/dL Normal 2.2-4.2 [facility] Comment on above: Order Comment: UNKNO WN1N Performed By: #### L 700.6800 #### [facility] [address] [place], [address] Glucose [Mass/Vol] 96 mg/dL Normal 74-106 [facility] Comment on above: Order Comment: UNKNO WN1N Performed By: #### L 700.6800 #### [facility] [address] [place], [address] Potassium [Moles/Vol] 4.0 mmol/L Normal 3.5-5.1 [facility] Comment on above: Order Comment: UNKNO WN1N Performed By: #### L 700.6800 #### [facility] [address] [place], [address] Sodium [Moles/Vol] 139 mmol/L Normal 136-145 [facility] Comment on above: Order Comment: UNKNO WN1N Performed By: #### L 700.6800 #### [facility] [address] [place], [address] T PROT 7.3 g/dL Normal 6.4-8.2 [facility] Comment on above: Order Comment: UNKNO WN1N Performed By: #### L 700.6800 #### [facility] [address] [place], [address] Urea nitrogen [Mass/Vol] 8 mg/dL Normal 7-18 [facility] Comment on above: Order Comment: UNKNO WN1N Performed By: #### L 700.6800 #### [facility] [address] [place], [address] Erythrocyte Sed Rateon 04-11 SED RATE 3 mm/hr Normal 0-30 [facility] Comment on above: Performed By: #### L 700.6800 #### [facility] [address] [place], [address] Ferritinon 04-11-2024 Ferritin [Mass/Vol] 97 ng/mL Normal 8-252 [facility] Comment on above: Order Comment: UNKNO WN1N Performed By: #### L 503.6550, L504.2610 #### [facility] [address] [place], [address] Folates, (Folic Acid)on 03-27 FOLATES 11.10 ng/mL Normal 3.1-55.4 [facility] Comment on above: Order Comment: UNKNO WN1N Performed By: #### L 503.6550, L504.2610 #### [facility] [address] [place], [address] Immature platelet percentage Ordered By: Alex Means on 04-11-2024 Platelets reticulated/100 platelets Auto (Bld) 3.9 % 1.0-7.9 [facility] Comment on above: Low PLT + Low IPF [place] ggest a bone marrow production disorderLow PLT + high IPF suggests peripheral destruction(e.g.ITP, TTP, HIT, DIC, autoimmune) or bone marrow recoveryTrending of serial IPF measurements is recommended when evaluating for bone marrow responesValue above normal range indicates an increase in RBC cellular response from bone marrow. Iron measurement (mass/mass) Ordered By: Alex Means on 04-11-2024 Iron (Unsp spec) [Mass/Mass] 142 ug/dL 50-170 [facility] Iron+Iron Binding Capacityon 04-11-2024 Iron [Mass/Vol] 142 ug/dL Normal 50-170 [facility] Comment on above: Order Comment: UNKNO WN1N Performed By: #### L 700.6800 #### [facility] [address] [place], [address] IRON SATURATION 42.8 Normal 15.0-55.0 [facility] Comment on above: Order Comment: ALONO WN1N Performed By: #### L 700.6800 #### [facility] [address] [place], [address] TIBC 332 ug/dL Normal 250-450 [facility] Comment on above: Order Comment: UNKNO WN1N Performed By: #### L 700.6800 #### [facility] [address] [place], [address] LDHon 04-11-2024 LDH 142 U/L Normal 84-246 [facility] Comment on above: Order Comment: UNKNO WN1N Performed By: #### L 503.6550, L504.2610 #### [facility] [address] [place], [address] Laboratory - Hematology and Cell countsOrdered By: Alex Means on 04-11-2024 Anisocytosis Ql (Bld) 2+ [facility] Magnesiumon 04-11-2024 Magnesium [Mass/Vol] 2.1 mg/dL Normal 1.6-2.6 [facility] Comment on above: Order Comment: UNKNO WN1N Performed By: #### L 700.6800 #### [facility] [address] [place], [address] Magnesium measurementOrdered By: Alex Means on 04-11-2024 Magnesium [Mass/Vol] 2.1 mg/dL 1.6-2.6 [facility] Oncology Visit Reporton 03-27 Oncology Visit Report [facility] [address] [place] [address] OFFICE VISIT Date of Service: 04/11/24 1329 MR#: [id number] Acct: [id number] Name: YENNY ZEE Rep #: [id number] 8 : 2000 From: Alex Means MD Age/Sex: 23/F [place] [facility] Status: Signed HPI Subjective Date of Service 04/11/24 Chief Complaint F/u for anemia evaluation. History of Present Illness 23y.o.woman was found to have anemia and referred for evaluation. She has been Iron deficient about 3 yrs ago, was started on Oral Iron, got constipation so not taking it. She was found to have severe Iron deficiency anemia with Positive Celiac antibody. She got IV Iron Ferrlecit on 03/05/2024. 03/12/2024, 03/21/2024 and 03/28/2024. Had blood work done and comes for follow up. Feels well. 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 Surgical History History of knee surgery History of placement of ear tubes Social History current occupation: [employer] in [employer] sexually active: No other: Plays basketball, volleyball, and track Smoking Status: Never smoker alcohol intake: current alcohol intake frequency: a few times a month substance use type: does not use seatbelt use: always additional social history: Works at [employer] in the summer Intake Vital Signs 02/28/24 16:19 04/11/24 13:30 Height 5 ft 7 in 5 ft 7 in Weight: 71.469 kg BMI 24.6 BP 122/73 H Blood Pressure Location Lt brachial Position Sitting Respiration 18 Pulse 72 Pulse Source Monitor Temp 98 F Temperature Source Temporal Artery Pulse Oximetry (%) 100 Oxygen Delivery Method room air Intake Is patient in pain?: No Allergies No Known Allergies Allergy (Verified 04/11/24 13:34) Medications ???Medication ???Instructions ???Recorded ???Confirmed ???Type levonorgestrel-ethi nyl estradiol 1 tab PO QDAY #84 tabs 07/10/23 04/11/24 Rx 0.1 mg-20 mcg tablet (Aviane) valacyclovir 500 mg tablet 500 mg PO QDAY #90 tabs 11/01/23 04/11/24 Rx Central Venous Access Central Venous Access: No Laboratory Results 04/11/24 02/20/24 02/20/24 12:37 14:10 14:07 WBC 4.0 L 5.5 RBC 4.90 Hgb 12.2 9.9 L Hct 39.4 32.8 L MCV 73.4 L Plt Count 254 412 Absolute Neuts (auto) 2.3 Sodium 139 Potassium 4.0 Chloride 107 Carbon Dioxide 27.0 BUN 8 Creatinine 1.18 H Glucose 96 Calcium 9.1 Phosphorus 2.7 Magnesium 2.1 Iron 142 25 L TIBC 332 526 H Iron Saturation 42.8 4.8 L Ferritin 97 4 L Total Bilirubin 1.00 AST 21 ALT 29 Alkaline Phosphatase 54 Lactate Dehydrogenase 142 C-React Prot Ext Range < 2.90 Total Protein 7.3 Albumin 3.8 Globulin 3.5 Vitamin B12 281 Folate 11.10 Endomysial IgA Ab Negative Tiss Transglutamin IgG 6 H Tiss Transglutamin IgA <2 Anti-Gliadin IgG Ab 5 Anti-Gliadin IgA Ab 5 Exam Physical Exam Const alert, oriented x3 and no apparent distress Coding Level of Care Code Off vis,est,level 3 Exam Problem Focused Diagnoses 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 Plan: To start Oral Iron 2-3 tablets a week. (2) Celiac disease: Status: Chronic Plan: To continue Gluten free diet. Orders: Orders CBC W/Diff, Automated 10/03/24 D50.9 - Iron deficiency anemia, unspecified, K90.0 - Celiac disease Comprehensive Metabolic Profil 10/03/24 D50.9 - Iron deficiency anemia, unspecified, K90.0 - Celiac disease Retic Panel Count 10/03/24 D50.9 - Iron deficiency anemia, unspecified, K90.0 - Celiac disease Erythrocyte Sed Rate 10/03/24 D50.9 - Iron deficiency anemia, unspecified, K90.0 - Celiac disease CRP 10/03/24 D50.9 - Iron deficiency anemia, unspecified, K90.0 - Celiac disease Ferritin 10/03/24 D50.9 - Iron deficiency anemia, unspecified, K90.0 - Celiac disease Iron+Iron Binding Capacity 10/03/24 D50.9 - Iron deficiency anemia, unspecified, K90.0 - Celiac disease LDH 10/03/24 D50.9 - Iron deficiency anemia, unspecified, K90.0 - Celiac disease Plan Details Follow Up: 6 Months 04/11/24 1400 Date Alex Means MD Cosigner Signature: Date (if applicable) CC: Normal [facility] Ovalocyte detectionOrdered B y: Alex Means on 04-11-2024 Ovalocytes LM Ql (Bld) 1+ [facility] Phosphoruson 04-11-2024 Phosphate [Mass/Vol] 2.7 mg/dL Normal 2.5-4.9 [facility] Comment on above: Order Comment: UNKNO WN1N Performed By: #### L 700.6800 #### [facility] [address] [place], [place], [id number] Retic Panelon 04-11-2024 IM RET FRACTION 15.20 Normal 3.00-15.90 [facility] Comment on above: Performed By: #### L 700.6800 #### [facility] [address] [place], [place], [address] IPF 3.9 Normal 1.0-7.9 [facility] Comment on above: Result Comment: Low PLT + Low IPF suggest a bone marrow production disorder Low PLT + high IPF suggests peripheral destruction (e.g.ITP, TTP, HIT, DIC, autoimmune) or bone marrow recovery Trending of serial IPF measurements is recommended when evaluating for bone marrow respones Value above normal range indicates an increase in RBC cellular response from bone marrow. Performed By: #### L 700.6800 #### [facility] [address] [place], [address] RET-HE 29.9 pg Low 30-35 [facility] Comment on above: Performed By: #### L 700.6800 #### [facility] [address] [place], [place], [address] Retic Count 1.53 High 0.5-1.5 [facility] Comment on above: Performed By: #### L 700.6800 #### [facility] [address] [place], [address] Vitamin B12on 04-11-2024 Cobalamin (Vitamin B12) [Mass/Vol] 281 pg/mL Normal 211-911 [facility] Comment on above: Performed By: #### L 700.6800 #### [facility] [address] [place], [place], [address] Vitamin B12 measurementOrder ed By: Alex Means on 04-11-2024 Cobalamin (Vitamin B12) [Mass/Vol] 281 pg/mL 211-911 [facility] Oncology Visit Reporton 120 Oncology Visit Report [facility] [address] [place], [place] [address] OFFICE VISIT Date of Service: 02/28/24 1618 MR#: [id number] Acct: [id number] Name: YENNY ZEE Rep #: [id number] 1 : 2000 From: Alex Means MD Age/Sex: 23/F [place] [facility] [place] Status: Signed HPI Subjective Date of Service 02/28/24 Chief Complaint F/u for anemia evaluation. History of Present Illness 23y.o.woman was found to have anemia and referred for evaluation. She has been Iron deficient about 3 yrs ago, was started on Oral Iron, got constipation so not taking it. She had blood work done and comes for follow up. 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 Surgical History History of knee surgery History of placement of ear tubes Social History current occupation: [employer] in [employer] sexually active: No other: Plays basketball, volleyball, and track Smoking Status: Never smoker alcohol intake: current alcohol intake frequency: a few times a month substance use type: does not use seatbelt use: always additional social history: Works at [employer] in the summer Intake Vital Signs 02/20/24 13:33 02/28/24 16:19 Height 5 ft 7 in 5 ft 7 in Weight: 70.987 kg 71.271 kg BMI 24.5 24.6 BP 120/71 Blood Pressure Location Lt brachial Position Sitting Respiration 18 Pulse 73 Pulse Source Monitor Temp 98.4 F Temperature Source Temporal Artery Pulse Oximetry (%) 100 Oxygen Delivery Method room air Intake Is patient in pain?: No Allergies No Known Allergies Allergy (Verified 02/28/24 16:20) Medications ???Medication ???Instructions ???Recorded ???Confirmed ???Type levonorgestrel-ethi nyl estradiol 1 tab PO QDAY #84 tabs 07/10/23 02/28/24 Rx 0.1 mg-20 mcg tablet (Aviane) valacyclovir 500 mg tablet 500 mg PO QDAY #90 tabs 11/01/23 02/28/24 Rx Central Venous Access Central Venous Access: No Laboratory Results 02/20/24 02/20/24 14:10 14:07 WBC 5.5 Hgb 9.9 L Hct 32.8 L MCV 73.4 L Plt Count 412 Iron 25 L TIBC 526 H Iron Saturation 4.8 L Ferritin 4 L Endomysial IgA Ab Negative Tiss Transglutamin IgG 6 H Tiss Transglutamin IgA <2 Anti-Gliadin IgG Ab 5 Anti-Gliadin IgA Ab 5 Exam Physical Exam Const alert, oriented x3 and no apparent distress Coding Level of Care Code Off vis,est,level 3 Exam Problem Focused Diagnoses 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 Severe Iron deficiency anemia with Celiac IgG antibody will decrease her response to Oral Iron. Plan: To do IV Iron replacement. (2) Celiac disease: Status: Acute Plan: To start Gluten free diet. 02/28/24 1647 Date Alex Almonte Signature: Date (if applicable) CC: Normal [facility] Celiac AB,Comprehensiveon ANTIGLIADIN IGA 5 units Normal 0-19 [facility] Comment on above: Order Comment: PLEAS E ADD TO BLOOD IN LAB DRAWN YESTERDAY. THANK YOU!! Result Comment: Nega tive 0 - 19 Weak Positive 20 - 30 Moderate to Strong Positive >30 Performed By: #### L 503.6550, L504.2610 #### [facility] [address] [place], [address] ANTIGLIADIN IGG 5 units Normal 0-19 [facility] Comment on above: Order Comment: PLEAS E ADD TO BLOOD IN LAB DRAWN YESTERDAY. THANK YOU!! Result Comment: Nega tive 0 - 19 Weak Positive 20 - 30 Moderate to Strong Positive >30 Performed By: #### L 503.6550, L504.2610 #### [facility] [address] [place], [place], [address] ENDOMYSIAL IGA Negative Normal Negative [facility] Comment on above: Order Comment: PLEAS E ADD TO BLOOD IN LAB DRAWN YESTERDAY. THANK YOU!! Performed By: #### L 503.6550, L504.2610 #### [facility] [address] [place], [place], [address] IMMUNOGLOB A QN 172 mg/dL Normal 87-352 [facility] Comment on above: Order Comment: PLEAS E ADD TO BLOOD IN LAB DRAWN YESTERDAY. THANK YOU!! Result Comment: Perf ormed at: [facility] [address] [id number] [place] Clothier: Varun Torres PhD, Phone: [phone] Performed By: #### L 503.6550, L504.2610 #### [facility] [address] [place], [place], [address] tTG IGA <2 Normal 0-3 [facility] Comment on above: Order Comment: PLEAS E ADD TO BLOOD IN LAB DRAWN YESTERDAY. THANK YOU!! Result Comment: Nega tive 0 - 3 Weak Positive 4 - 10 Positive >10 Tissue Transglutaminase (tTG) has been identified as the endomysial antigen. Studies have demonstr- ated that endomysial IgA antibodies have over 99% specificity for gluten sensitive enteropathy. Performed By: #### L 503.6550, L504.2610 #### [facility] [address] [place], [place], [id number] tTG IGG 6 U/mL Abnormal 0-5 [facility] Comment on above: Order Comment: PLEAS E ADD TO BLOOD IN LAB DRAWN YESTERDAY. THANK YOU!! Result Comment: Nega tive 0 - 5 Weak Positive 6 - 9 Positive >9 Performed By: #### L 503.6550, L504.2610 #### [facility] [address] [place], [address] Blood polychromasia detectio n by light microscopyOrdered By: Alex Means on 02-20-2024 Polychromasia LM Ql (Bld) 1+ [facility] CBC W/Diff, Automatedon 01-26 POLYCHROMASIA 1+ Normal [facility] Comment on above: Performed By: #### L 503.6030, L501.6710, L500.4050, L100.0100, L501.5200, L100.9950, L101.9900 #### [facility] [address] [place], [address] Anisocytosis Ql (Bld) 1+ Normal [facility] Comment on above: Performed By: #### L 503.6030, L501.6710, L500.4050, L100.0100, L501.5200, L100.9950, L101.9900 #### [facility] [address] [place], [address] PLT MORPH GIANT Normal [facility] Comment on above: Performed By: #### L 503.6030, L501.6710, L500.4050, L100.0100, L501.5200, L100.9950, L101.9900 #### [facility] [address] [place], [address] CRPon 02-20-2024 C-REACTIVE PROT < 2.90 Normal 0.0-3.0 [facility] Comment on above: Result Comment: C-Re active Protein (CRP) provides useful information for the diagnosis, therapy and monitoring of inflammatory processes and associated diseases. For the evaluation of Relative Risk for Cardiovascular Disease, a High Sensitivity CRP (HSCRP) should be ordered. Performed By: #### L 503.6030, L501.6710, L500.4050, L100.0100, L501.5200, L100.9950, L101.9900 ####[facility] [address] [place], [address] [facility] Albumin [Mass/Vol] 3.5 g/dL Normal 3.2-5.0 Joint [facility] Comment on above: Performed By: #### L 503.6030, L501.6710, L500.4050, L100.0100, L501.5200, L100.9950, L101.9900 ####[facility] [address] [place], [place], [id number] Albumin/Globulin [Mass ratio] 0.9 {ratio} Normal 0.9-2.4 [facility] Comment on above: Performed By: #### L 503.6030, L501.6710, L500.4050, L100.0100, L501.5200, L100.9950, L101.9900 ####[facility] [address] [place], [place], [phone] ALK P 66 U/L Normal 45-117 [facility] Comment on above: Performed By: #### L 503.6030, L501.6710, L500.4050, L100.0100, L501.5200, L100.9950, L101.9900 ####[facility] [address] [place], [place], [phone] ALT [Catalytic activity/Vol] 15 U/L Normal 13-56 [facility] Comment on above: Performed By: #### L 503.6030, L501.6710, L500.4050, L100.0100, L501.5200, L100.9950, L101.9900 ####[facility] [address] [place], [place], [phone] AST [Catalytic activity/Vol] 12 U/L Low 15-37 [facility] Comment on above: Performed By: #### L 503.6030, L501.6710, L500.4050, L100.0100, L501.5200, L100.9950, L101.9900 ####[facility] [address] [place], [address] Bilirubin [Mass/Vol] 0.90 mg/dL Normal 0.20-1.00 [facility] Comment on above: Result Comment: For patients on eltrombopag therapy, use of Dimension [place] TBIL is not recommended. Performed By: #### L 503.6030, L501.6710, L500.4050, L100.0100, L501.5200, L100.9950, L101.9900 ####[facility] [address] [place], [address] BUN/CRE 9.5 RATIO Low 10-20 [facility] Comment on above: Performed By: #### L 503.6030, L501.6710, L500.4050, L100.0100, L501.5200, L100.9950, L101.9900 ####[facility] [address] [place], [address] CA,Total 8.9 mg/dL Normal 8.5-10.1 [facility] Comment on above: Performed By: #### L 503.6030, L501.6710, L500.4050, L100.0100, L501.5200, L100.9950, L101.9900 ####[facility] [address] [place], [address] Chloride [Moles/Vol] 108 mmol/L High 98-107 [facility] Comment on above: Performed By: #### L 503.6030, L501.6710, L500.4050, L100.0100, L501.5200, L100.9950, L101.9900 ####[facility] [address] [place], [address] CO2 [Moles/Vol] 29.0 mmol/L Normal 21.0-32.0 [facility] Comment on above: Performed By: #### L 503.6030, L501.6710, L500.4050, L100.0100, L501.5200, L100.9950, L101.9900 ####[facility] [address] [place], [place], [phone] Creatinine [Mass/Vol] 1.16 mg/dL High 0.55-1.02 [facility] Comment on above: Result Comment: The validity of the calculated GFR GFRAA in patients over 70 years has not been determined. Clinical correlation is essential. Performed By: #### L 503.6030, L501.6710, L500.4050, L100.0100, L501.5200, L100.9950, L101.9900 ####[facility] [address] [place], [place], [phone]) EST GFR - AA 75 mL/min Normal >60 [facility] Comment on above: Result Comment: Afri can [place] GFR Calc Performed By: #### L 503.6030, L501.6710, L500.4050, L100.0100, L501.5200, L100.9950, L101.9900 ####[facility] [address] [place], [place], [phone] GAP 2 Low 5-15 [facility] Comment on above: Performed By: #### L 503.6030, L501.6710, L500.4050, L100.0100, L501.5200, L100.9950, L101.9900 ####[facility] [address] [place], [place], [phone] GFR/1.73 sq M.predicted among non-blacks MDRD (S/P/Bld) [Vol rate/Area] 62 mL/min/{1.73_m2} Normal >60 [facility] Comment on above: Result Comment: Non- GFR Calc Performed By: #### L 503.6030, L501.6710, L500.4050, L100.0100, L501.5200, L100.9950, L101.9900 ####[facility] [address] [place], [address] Globulin (S) [Mass/Vol] 3.9 g/dL Normal 2.2-4.2 [facility] Comment on above: Performed By: #### L 503.6030, L501.6710, L500.4050, L100.0100, L501.5200, L100.9950, L101.9900 ####[facility] [address] [place], [address] Glucose [Mass/Vol] 103 mg/dL Normal 74-106 [facility] Comment on above: Result Comment: Fast ing Glucose result from 100 to 125 mg/dL suggests IMPAIRED HOMEOSTASIS per A.D.A. criteria. Performed By: #### L 503.6030, L501.6710, L500.4050, L100.0100, L501.5200, L100.9950, L101.9900 ####[facility] [address] [place], [address] Potassium [Moles/Vol] 3.8 mmol/L Normal 3.5-5.1 [facility] Comment on above: Performed By: #### L 503.6030, L501.6710, L500.4050, L100.0100, L501.5200, L100.9950, L101.9900 ####[facility] [address] [place], [address] Sodium [Moles/Vol] 139 mmol/L Normal 136-145 [facility] Comment on above: Performed By: #### L 503.6030, L501.6710, L500.4050, L100.0100, L501.5200, L100.9950, L101.9900 ####[facility] [address] [place], [address] T PROT 7.4 g/dL Normal 6.4-8.2 [facility] Comment on above: Performed By: #### L 503.6030, L501.6710, L500.4050, L100.0100, L501.5200, L100.9950, L101.9900 ####[facility] [address] [place], [address] Urea nitrogen [Mass/Vol] 11 mg/dL Normal 7-18 [facility] Comment on above: Performed By: #### L 503.6030, L501.6710, L500.4050, L100.0100, L501.5200, L100.9950, L101.9900 ####[facility] [address] [place], [address] Erythrocyte Sed Rateon 02-19 SED RATE 9 mm/hr Normal 0-30 [facility] Comment on above: Performed By: #### L 503.6030, L501.6710, L500.4050, L100.0100, L501.5200, L100.9950, L101.9900 #### [facility] [address] [place], [address] Ferritinon 02-20-2024 Ferritin [Mass/Vol] 4 ng/mL Low 8-252 [facility] Comment on above: Order Comment: 1N Performed By: #### L 503.6550, L504.2610 #### [facility] [address] [place], [address] Folates, (Folic Acid)on 01-26 FOLATES 10.60 ng/mL Normal 3.1-55.4 [facility] Comment on above: Order Comment: 1 Performed By: #### L 503.6550, L504.2610 #### [facility] [address] [place], [address] Iron+Iron Binding Capacityon 02-20-2024 Iron [Mass/Vol] 25 ug/dL Low 50-170 [facility] Comment on above: Performed By: #### L 503.6030, L501.6710, L500.4050, L100.0100, L501.5200, L100.9950, L101.9900 ####[facility] [address] [place], [place], [phone] IRON SATURATION 4.8 Low 15.0-55.0 [facility] Comment on above: Performed By: #### L 503.6030, L501.6710, L500.4050, L100.0100, L501.5200, L100.9950, L101.9900 ####[facility] [address] [place], [place], [phone](456) TIBC 526 ug/dL High 250-450 [facility] Comment on above: Performed By: #### L 503.6030, L501.6710, L500.4050, L100.0100, L501.5200, L100.9950, L101.9900 ####[facility] [address] [place], [place], [phone] LDHon 02-20-2024 LDH 154 U/L Normal 84-246 [facility] Comment on above: Order Comment: 1 Performed By: #### L 503.6550, L504.2610 #### [facility] [address] [place], [place], [phone] ([address] Magnesiumon 02-20-2024 Magnesium [Mass/Vol] 2.3 mg/dL Normal 1.6-2.6 [facility] Comment on above: Performed By: #### L 503.6030, L501.6710, L500.4050, L100.0100, L501.5200, L100.9950, L101.9900 ####[facility] [address] [place], [place], [phone] No Panel InformationOrdered By: Alex Means on 02-20-2024 Tissue Transglutaminase IgG Ab 6 U/mL High 0-5 [facility] Comment on above: Negative 0 - 5 Weak Positive 6 - 9 Positive >9 Oncology Visit Reporton 01-26 Oncology Visit Report [facility] [place] [address] OFFICE VISIT Date of Service: 02/20/24 1329 MR#: [id number] Acct: [id number] Name: YENNY ZEE Rep #: [id number] : 2000 From: Alex Means MD Age/Sex: 23/F [place] [facility] Status: Signed HPI Subjective Date of Service 02/20/24 Chief Complaint Referred for anemia evaluation. History of Present Illness 23y.o.woman was found to have anemia and referred for evaluation. She has been Iron deficient about 3 yrs ago, was started on Oral Iron, got constipation. [facility] Medical History (Updated 02/20/24 @ 13:[address] 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 Surgical History History of knee surgery History of placement of ear tubes Social History current occupation: [employer] sexually active: No other: Plays basketball, volleyball, and track Smoking Status: Never smoker alcohol intake: current alcohol intake frequency: a few times a month substance use type: does not use seatbelt use: always additional social history: Works at [employer] in the summer ROS Constitutional Constitutional: Reports systems reviewed and no addt'l complaints, except as documented Eyes Eyes: Reports systems reviewed and no addt'l complaints, except as documented ENT HEENT: Reports systems reviewed and no addt'l complaints, except as documented Cardiovascular Cardiovascular: Reports systems reviewed and no addt'l complaints, except as documented Respiratory/Chest Respiratory/Chest: Reports systems reviewed and no addt'l complaints, except as documented Gastrointestinal Gastrointestinal: Reports systems reviewed and no addt'l complaints, except as documented Genitourinary Genitourinary: Reports systems reviewed and no addt'l complaints, except as documented Musculoskeletal Musculoskeletal: Reports systems reviewed and no addt'l complaints, except as documented Integumentary Integumentary: Reports systems reviewed and no addt'l complaints, except as documented Neurologic Neurologic: Reports systems reviewed and no addt'l complaints, except as documented Psychiatric Psychiatric: Reports systems reviewed and no addt'l complaints, except as documented Endocrine Endocrinology: Reports systems reviewed and no addt'l complaints, except as documented Hematologic/Lymphat ic Hematologic/Lymphat ic: Reports systems reviewed and no addt'l complaints, except as documented Allergic/Immunologi c Allergic/Immunologi c: Reports systems reviewed and no addt'l complaints, except as documented Intake Vital Signs 01/25/24 09:33 02/20/24 13:31 02/20/24 13:33 02/20/24 13:33 Height 5 ft 7 in 5 ft 7 in 5 ft 7 in 5 ft 7 in Weight: 70.987 kg 70.987 kg BMI 24.5 24.5 BP 130/81 H Blood Pressure Location Rt brachial Position Sitting Respiration 18 Pulse 72 Pulse Source Monitor Temp 98.9 F Temperature Source Temporal Artery Pulse Oximetry (%) 100 Oxygen Delivery Method room air Intake Is patient in pain?: Yes (cramps) Pain scale (1-10): 8 Allergies No Known Allergies Allergy (Verified 02/20/24 13:29) Medications ???Medication ???Instructions ???Recorded ???Confirmed ???Type levonorgestrel-ethi nyl estradiol 1 tab PO QDAY #84 tabs 07/10/23 02/20/24 Rx 0.1 mg-20 mcg tablet (Aviane) valacyclovir 500 mg tablet 500 mg PO QDAY #90 tabs 11/01/23 02/20/24 Rx Central Venous Access Central Venous Access: No Exam Physical Exam Const alert, oriented x3 and no apparent distress HEENT normocephalic, external ears normal and external nose normal Eyes no scleral icterus Neck supple Lymph Lymphatic: no lymphadenopathy noted Chest inspection of chest normal Resp normal respiratory effort and clear to auscultation bilaterally Cardio regular rate, regular rhythm, S1 normal heart sound and S2 normal heart sound GI normal to inspection, nondistended, normoactive bowel sounds no CVA tenderness Back/Spine thoracic and lumbar spine normal to inspection Extremity no clubbing, cyanosis or edema Skin no rashes or lesions noted Neuro oriented x3, CN's II-XII intact bilaterally and moves all extremities Psych mental status grossly normal Coding Level of Care Code Off vis,new,level 3 Exam Problem Focused Diagnoses Iron deficiency anemia, unspecified iron deficiency anemia type D50.9 Anemia type: iron deficiency Iron deficiency anemia type: unspecified iron deficiency Assessment and Plan Assessment and Plan (1) Anemia: Status: Acute Qualifiers: Anemia type: iron deficiency Iron deficiency anemia type: unspecified iron d (more content not included)... Normal [facility] Phosphoruson 02-20-2024 Phosphate [Mass/Vol] 2.8 mg/dL Normal 2.5-4.9 [facility] Comment on above: Order Comment: 1N Performed By: #### L 503.6550, L504.2610 #### [facility] [address] [place], [place], [phone] Platelet morphologyOrdered B y: Alex Means on 02-20-2024 Platelet morphology finding Nom (Bld) GIANT [facility] Retic Panelon 02-20-2024 IM RET FRACTION 28.60 High 3.00-15.90 [facility] Comment on above: Performed By: #### L 503.6030, L501.6710, L500.4050, L100.0100, L501.5200, L100.9950, L101.9900 #### [facility] [address] [place], [place], [phone] RET-HE 25.6 pg Low 30-35 [facility] Comment on above: Performed By: #### L 503.6030, L501.6710, L500.4050, L100.0100, L501.5200, L100.9950, L101.9900 #### [facility] [address] [place], [place], [phone] (187) Retic Count 1.11 Normal 0.5-1.5 [facility] Comment on above: Performed By: #### L 503.6030, L501.6710, L500.4050, L100.0100, L501.5200, L100.9950, L101.9900 #### [facility] [address] [place], [address] Serum tissue transglutaminas e (tTG) IgA antibody assay (units/volume)Ordered By: Alex Means on 02-20-2024 tTG IgA Qn (S) <2 U/mL 0-3 [facility] Comment on above: Negative 0 - 3 Weak Positive 4 - 10 Positive >10 Tissue Transglutaminase (tTG) has been identified as the endomysial antigen. Studies have demonstr- ated that endomysial IgA antibodies have over 99% specificity for gluten sensitive enteropathy. Vitamin B12on 02-20-2024 Cobalamin (Vitamin B12) [Mass/Vol] 343 pg/mL Normal 211-911 [facility] Comment on above: Performed By: #### L 503.6550, L504.2610 #### [facility] [address] [place], [address] [id number] 01-25-2024 M8200.2203 Comments: urine Pending Chlamydia Trachomatis PCR NEGATIVE for Chlamydia trachomatis N. gonorrhoeae PCR Negative for N. gonorrhoeae Normal [facility] Comment on above: Performed By: #### L 503.6550, L504.2610 #### [facility] [address] [place], [address] Inside Polisher Office Visit Reporton 01-25-2024 Inside Polisher Office Visit Report [facility] [address], [address] [place] [address] OFFICE VISIT Date of Service: 01/25/24 MR#: [id number] Acct: [id number] Name: YENYN ZEE Rep #: [id number] : 2000 Provider: Dr. Heidy spann MD Age/Sex: 23/F Location[place] [facility] [place] Status: Signed Intake Vital Signs 01/18/24 15:02 01/25/24 09:33 Height 5 ft 7 in 5 ft 7 in Weight: 154 lb BMI 24.1 BP 118/79 Intake Visit Reasons: ER follow up ruptured cyst Adult Remedial Education Instructor Required: No Is patient in pain?: Yes (period started 4 days ago - ibuprofen not helping pain) Allergies No Known Allergies Allergy (Verified 01/25/24 09:35) Medications ???Medication ???Instructions ???Recorded ???Confirmed ???Type levonorgestrel-ethi nyl estradiol 1 tab PO QDAY #84 tabs 07/10/23 01/25/24 Rx 0.1 mg-20 mcg tablet (Aviane) valacyclovir 500 mg tablet 500 mg PO QDAY #90 tabs 11/01/23 01/25/24 Rx Is last menstrual period known: Yes Last Menstrual Period: 01/21/24 Post menopausal: No Patient : No : No PFSH Medical History Chlamydia 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 Surgical History History of placement of ear tubes Social History (Updated 01/25/24 @ 09:36 by Niki Hutchison) current occupation: [employer] sexually active: No other: Plays basketball, volleyball, and track Smoking Status: Never smoker alcohol intake: current alcohol intake frequency: a few times a month substance use type: does not use seatbelt use: always additional social history: Works at [employer] in the summer HPI ER follow up ruptured cyst Details: YENNY ZEE is a 23 year old who presents for follow up after ER visit she had acute lower pelvic pain and was joie in the ER diagnosed with ruptured ovarian cyst, noted to have anemia which is chronic for her but is worse than previous, she has light menses now on OCP. she is taking iron although not always consistently. she denies any bleeidng or abnormal discharge. Female Reproductive History Last Menstrual Period: 01/21/24 ROS Const Constitutional: Denies fatigue, fever(s), headache(s), increased appetite, poor appetite, weight gain or weight loss GI GI: Reports as per HPI and abdominal pain; Denies constipation, nausea or vomiting : Reports as per HPI; Denies difficulty voiding, dysuria, hematuria, pelvic pain, urinary frequency, urinary incontinence, urinary hesitancy, urinary urgency, vaginal discharge, vaginal dryness, vaginal odor, vaginal pruritus or other Exam Const General: cooperative, healthy appearing, comfortable, no acute distress and well developed Orientation: alert HENAL Head: normal to inspection and normocephalic Ears: hearing grossly normal bilaterally and external ears normal Nose: external nose normal and nares normal Face and sinus: normal facial exam Neck Neck: normal visual inspection, no lymphadenopathy and trachea midline Thyroid: thyroid normal Resp Effort Inspection: normal respiratory effort Musc Other: gross motor intact no deficits, full bilateral strength Skin General: no rashes or lesions noted Neuro Motor: muscle tone normal throughout Coding Level of Care Code Off vis,est,level 3 Diagnoses Anemia D64.9 Acute pain in female pelvis R10.2 Assessment and Plan Assessment and Plan (1) Anemia: Status: Acute Comment: persistent, not menstrual. questionable history of iron deficiency recommend hematology consult but has been on replacement (2) Acute pain in female pelvis: Status: Acute Plan Problem list updated and treatment plans were reviewed with the patient and relevant educational handouts given. See problem list details for specific plan information. 01/25/24 1004 Date Heidy Ugarte MD Cosigner Signature: Date (if applicable) CC: Normal [facility] CBC W/Diff, Automatedon 10-2 Anisocytosis Ql (Bld) 1+ Normal [facility] Comment on above: Performed By: #### L 700.6800 #### [facility] [address] [place], [place], [phone] HYPOCHROMASIA 1+ Normal [facility] Comment on above: Performed By: #### L 700.6800 #### [facility] [address] [place], [address] SMEAR COMMENT SCANNED Normal [facility] Comment on above: Performed By: #### L 700.6800 #### [facility] [address] [place], [address] Emergency Department Summary on 01-18-2024 Emergency Department Summary [facility] Medical Records Department [address] [place] [address] Emergency Department Summary 01/18/24 MR#: [id number] Acct: [id number] Name: YENNY ZEE Rep #: [id number] : 2000 23 From: Daryn Sanchez MD PCP: Care Physician,No Primary Status:REG ER Location: ED HPI HPI - GI History of Present Illness Chief Complaint: Abd Pain Informant: patient Narrative Narrative: 23-year-old female presenting with left pelvic pain that has been persistent since her last menstrual cycle which was about 2 weeks ago. She states she used to have irregular cycles before she was put on control pills which she has been taking and have regulated her cycle. She states she is due to have her next cycle in the next 4 days, as she just started the placebo pills and her hormone pack. She denies any urinary symptoms. No nausea or vomiting. She denies any vaginal discharge or bleeding right now. Normal bowel movements. No history of abdominal surgeries. 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 Home Medications ???Medication ???Instructions ???Recorded ???Last Taken ???Type levonorgestrel-ethi nyl estradiol 1 tab PO QDAY #84 tabs 07/10/23 Unknown Rx 0.1 mg-20 mcg tablet (Aviane) valacyclovir 500 mg tablet 500 mg PO QDAY #90 tabs 11/01/23 Unknown Rx Allergy/AdvReac Type Severity Reaction Status Date / Time No Known Allergies Allergy Verified 01/18/24 15:01 Surgical History History of placement of ear tubes Social History current occupation: [employer] other: Plays basketball, volleyball, and track Smoking Status: Never smoker alcohol intake: never substance use type: does not use seatbelt use: always additional social history: Works at [employer] in the summer ROS ROS ED Constitutional Constitutional ED: Denies chills or fever(s) Eyes Eyes: Denies change in vision or diplopia ENT ENT ED: Denies rhinorrhea or sore throat Cardiovascular Cardiovascular: Denies chest pain or palpitations Respiratory/Chest Respiratory/Chest: Denies cough or dyspnea Gastrointestinal Gastrointestinal: Reports abdominal pain; Denies diarrhea, nausea or vomiting Genitourinary Genitourinary ED: Denies dysuria or hematuria Musculoskeletal Musculoskeletal: Denies back pain or neck pain Integumentary Denies abscess or rash Neurologic Neurologic: Denies headache(s), paresthesias or weakness Psychiatric Psychiatric: Denies anxiety or suicidal thoughts EXAM Physical Exam Const Vital Signs: 01/18/24 15:02 01/18/24 17:01 01/18/24 19:00 Temperature 97.5 F L Temperature Source Temporal Pulse Rate 72 65 Respiratory Rate 18 18 Blood Pressure 121/62 H 116/67 115/72 Blood Pressure Mean 81 83 85 Pulse Ox 100 Oxygen Delivery Method Room Air Room Air 01/18/24 21:00 Temperature Temperature Source Pulse Rate Respiratory Rate Blood Pressure 126/64 H Blood Pressure Mean 79 Pulse Ox Oxygen Delivery Method Positive well nourished and well developed General Appearance ED: well developed and NAD HEENT Reports moist mucous membranes normocephalic and atraumatic Eyes PERRL and EOMs intact bilaterally Neck full ROM and supple Resp normal respiratory effort and clear to auscultation bilaterally Cardio regular rate, regular rhythm and no murmurs GI non-distended GI Narrative: Mildly tender in the left pelvis. No other areas of tenderness. No guarding or rebound no distention. Auscultation: normoactive bowel sounds Palpation: soft Back/Spine no CVA tenderness General Back: other FROM Extremity normal to inspection General Extremety ED: Negative for edema, pulses abnormal or tenderness General Extremity: Negative for edema or pulses abnormal Neuro oriented x3, CN's II-XII intact bilaterally and no sensory deficits noted Sensorium / Orientation: awake and alert Motor Exam: strength 5/5 throughout Skin no rashes or lesions noted and no wounds MDM MDM MDM Narrative Medical decision making narrative: is negative ruling out ectopic. Patient interested in ultrasound which I think is reasonable. Urine shows no sign of acute infection. She was offered something for pain but declined. Labs noted, she does not have a leukocytosis, her urine shows no acute infection, and I reviewed the ultrasound images and the report which I agree with, it is essentially negative for any acute except for some mild amount of free fluid. This is consistent with a possible cyst that ruptured and since regressed, (more content not included)... Normal [facility] ,Serum,hCG Quali.on 01-18-2024 HCG, SERUM QUAL Normal [facility] Comment on above: Result Comment: Canc elled via OM: MD Ordered Performed By: #### L 700.6800 #### [facility] [address] [place], [address] INTERNAL QC OK? Normal [facility] Comment on above: Result Comment: Canfederico elled via OM: MD Ordered Performed By: #### L 700.6800 #### [facility] [address] [place], [address] RECORD KIT LOT# Normal [facility] Comment on above: Result Comment: Canfederico elled via OM: MD Ordered Performed By: #### L 700.6800 #### [facility] [address] [place], [address] ,Urineon 01-18-2024 Beta HCG ( test) Ql (U) Negative [facility] Comment on above: Order Comment: COLLE CTOR TO SPECIFY Result Comment: Very dilute urine specimens, as indicated by a low specific gravity, may not contain advertising sales representative levels of hCG. If is still suspected, a first morning urine specimen should be collected 48 hours later and tested. Performed By: #### L 400.0001, L400.7600 #### [facility] [address] [place], [address] Transvaginal Non-on 01-18-2024 Transvaginal Non- [facility] [address] [place] [address] Transvaginal Non- MR#: [id number] Acct: [id number] Name: YENNY ZEE Rep #: [id number] : 2000 F 23 From: Abiel Jennings MD PCP: Care Physician,No Primary Status: REG ER Study: Transvaginal Non- Date of Exam: Exam# [id number] Ordering Dr: Daryn Sanchez MD -[id number] EXAM: US PELVIS TRANSVAGINAL CLINICAL INDICATION: left pelvic pain TECHNIQUE: Transvaginal pelvic ultrasound was performed with grayscale and color Doppler imaging. Transvaginal imaging was used for better evaluation of the endometrium and adnexa. COMPARISON: No relevant prior studies available. FINDINGS: UTERUS/CERVIX: The uterus measures 7.3 x 3.8 x 4.6 cm. The endometrium measures 8 mm. Anteverted. There is no uterine mass. RIGHT OVARY: The right ovary measures 3.6 x 1.5 x 2.0 cm. Blood flow is present in the right ovary. LEFT OVARY: The left ovary measures 3.4 x 1.4 x 2.1 cm. Blood flow is present in the left ovary. FREE FLUID: There is a trace amount of free fluid in the cul-de-sac. BLADDER: Empty bladder which cannot be evaluated with this probe. US/Transvaginal Non- IMPRESSION: No acute findings in the pelvis. Electronically Signed: Abiel Jennings MD at 18:50 EDT , CC: Dr. Daryn Sanchez MD; No Primary Care Physician Television Mechanic: Signed Normal [facility] Urinalysis, Completeon 01-17 BACTERIA 0 SEEN Normal None Seen [facility] Comment on above: Order Comment: COLLE CTOR TO SPECIFY Result Comment: AMENDED REPORT 01/18/24 4921 BACTERIA previously reported as: 0 SEEN /hpf Performed By: #### L 400.0001, L400.7600 #### [facility] [address] [place], [address] EPI,SQUAMOUS 0 SEEN Normal 5-10 [facility] Comment on above: Order Comment: ANNA CTOR TO SPECIFY Result Comment: AMENDED REPORT 01/18/241740 SQUAM EPI previously reported as: 0 SEEN /hpf Performed By: #### L 400.0001, L400.7600 #### [facility] [address] [place], [address] Mucus Ql (Urine sed) 0 SEEN Normal [facility] Comment on above: Order Comment: ANNA CTOR TO SPECIFY Performed By: #### L 400.0001, L400.7600 #### [facility] [address] [place], [address] RBC 0 SEEN Normal 0-5 [facility] Comment on above: Order Comment: ANNA CTOR TO SPECIFY Performed By: #### L 400.0001, L400.7600 #### [facility] [address] [place], [address] WBC 0 SEEN Normal 0-5 [facility] Comment on above: Order Comment: ANNA CTOR TO SPECIFY Result Comment: AMENDED REPORT 01/18/241739 WBC previously reported as: 0 SEEN /hpf Performed By: #### L 400.0001, L400.7600 #### [facility] [address] [place], [address] Basophil percentageOrdered B y: Niki Christopher on 07-10-2023 Hemoglobin (Bld) [Mass/Vol] 9.6 g/dL 12.0-15.0 [facility] WBC (Bld) [#/Vol] 4.7 10*3/uL 4.4-11.0 [facility] Blood manual differential co mment interpretation (narrative result)Ordered By: Niki Christopher on 07-10-2023 Manual differential comment Gurdeep (Bld) [Interp] SCANNED [facility] Comment on above: 2+ ANISOCYTOSIS1+ MA CROCYTOSIS1+ MICROCYTOSIS1+ HYPOCHROMASIA Cervical or vagninal specime n microscopic examination by cytology stain (reported asOrdered By: Niki Christopher on 07-10-2023 Cytology report Cyto stain Doc (Cvx/Vag) Comment . [facility] Comment on above: The Pap smear is a s creening test designed to aid in thedetection of premalignant and malignant conditions of theuterine cervix. It is not a diagnostic procedure andshould not be used as the sole means of detecting cervicalcancer. Both false-positive and false-negative reports dooccur. Determination of erythrocyte mean corpuscular volume (MCV)Ordered By: Niki Christopher on 07-10-2023 MCV (RBC) [Entitic vol] 73.5 fL 81-99 [facility] Erythrocyte distribution wid th ratioOrdered By: Niki Christopher on 07-10-2023 Erythrocyte distribution width (RBC) [Ratio] 21.5 % 11.6-14.6 [facility] Erythrocyte distribution wid th standard deviationOrdered By: Niki Christopher on 07-10-2023 Erythrocyte distribution width (RBC) [Entitic vol] 56.0 fL 35.1-43.9 [facility] HIV 1 and HIV-2 antibody ass ay with HIV-1 p24 antigen detectionOrdered By: Niki Christopher on 07-10-2023 HIV 1+2 Ab+HIV1 p24 Ag IA Ql Non-Reactive Nonreactive [facility] Hematocrit Auto (Bld) [Volum e fraction]Ordered By: Niki Christopher on 07-10-2023 Hematocrit (Bld) [Volume fraction] 31.9 % 37-47 [facility] - CytologyOrdered By: Niki Christopher on 07-10-2023 Foundry Process Engineer Cyto stain Nom (Cvx/Vag) [ID] Comment . [facility] Comment on above: Hernesto Mccain totechnologist (ASCP) Laboratory - Hematology and Cell countsOrdered By: Niki Christopher on 07-10-2023 MCH (RBC) [Entitic mass] 22.1 pg 27.0-32.0 [facility] MCHC (RBC) [Mass/Vol] 30.1 g/dL 32-36 [facility] Platelet mean volume (Bld) [Entitic vol] 9.3 fL 6.2-12.0 [facility] Platelets (Bld) [#/Vol] 417 10*3/uL 150-450 [facility] - Miscellaneous t estsOrdered By: Niki Christopher on 07-10-2023 Service comment (Unsp spec) [Interp] . . [facility] No Panel InformationOrdered By: Niki Christopher on 07-10-2023 Human Papillomavirus Screen Comment . [facility] Comment on above: The HPV DNA reflex c riteria were not met with this specimenresult therefore, no HPV testing was performed.Performed at: - [address] [id number] Director: Ermelinda Luevano MD, Phone: [phone] Hepatitis C Antibody Non-Reactive Nonreactive [facility] Comment on above: Non Reactive: < 0.8 Equivocal: >/= 0.8 to < 1.0 Reactive: >/= 1.0The CDC requires that a reactive/equivocal HCV antibody result be sent out for confirmation. HCV Quant by PCR testing. RBC Auto (Bld) [#/Vol]Ordere d By: Niki Christopher on 07-10-2023 RBC (Bld) [#/Vol] 4.34 10*6/uL 4.2-5.4 [facility] Serum Treponema species anti body detectionOrdered By: Niki Christopher on 07-10-2023 Treponema sp Ab Ql (S) Non-Reactive [facility] Thin prep Papanicolaou smear with manual screeningOrdered By: Niki Christopher on 07-10-2023 Thin prep Papanicolaou smear with manual screening Comment . [facility] Comment on above: NEGATIVE FOR INTRAEP ITHELIAL LESION OR MALIGNANCY.FUNGAL ORGANISMS MORPHOLOGICALLY CONSISTENT WITH BEATRIZ SPECIES AREPRESENT. This liquid based Th inPrep(R) pap test was screened withthe use of an image guided system. Chlamydia trachomatis rRNA d etection by probe and target amplification methodOrdered By: Niki Christopher on 07-05-2022 C. trachomatis rRNA DONALDO+probe Ql (Unsp spec) Negative Negative [facility] - Microbiology an d Antimicrobial susceptibilityOrdered By: Niki Christopher on 07-05-2022 N. gonorrhoeae DNA DONALDO+probe Ql (Unsp spec) Negative Negative [facility] Comment on above: Performed at: =G - L [address] [place], [place] [id number] Director: Ermelinda Luevano MD, Phone: [phone] No Panel Informationon 07-05 POC Trichomonas (Rapid) Negative [facility] Basophil percentageOrdered B y: Niki Christopher on 05-03-2022 C. trachomatis DNA DONALDO+probe Ql (Unsp spec) Positive Negative [facility] - Chemistry and C hemistry - challengeon 05-03-2022 HCG ( test) Ql (U) Negative [facility] Neisseria gonorrhoeae detect ion by PCROrdered By: Niki Christopher on 05-03-2022 N. gonorrhoeae DNA DONALDO+probe Ql (Cervical mucus) Negative Negative [facility] UA DIP, URINE (POC)on 2022 BILIRUBIN UA (POCT) Small Abnormal Negative [facility] CLARITY UA (POCT) Slightly Cloudy Cl [facility] COLOR UA (POCT) Yellow [facility] GLUCOSE UA (POCT) Negative Negative mg/dL [facility] HEMOGLOBIN/BLOOD UA (POCT) Large Abnormal Negative [facility] KETONE UA (POCT) Trace Negative mg/dL [facility] LEUKOCYTES UA (POCT) Moderate Abnormal Negative [facility] NITRITE UA (POCT) Negative Negative [facility] PH UA (POCT) 6.0 4.5 - 8.0 [facility] Protein Ql (U) 100 mg/dL Abnormal Negative mg/dL [facility] SPECIFIC GRAVITY UA (POCT) 1.020 1.005 - 1.030 [facility] UROBILINOGEN UA (POCT) 1.0 E.U./dL Renetta l E.U./dL [facility] Clinical Summary: AtaGriseldavaleiry quezada 07-02-2021 [facility] OP Visit Invalid Interpretation Code [facility] Work Phone: Office Visit: Follow-up by federico syed Rm: 6on 07-02-2021 NEGATED: Highlighted rowMRI (magnetic resonance imaging) history of the right knee on 05/20/2021 at [facility] Invalid Interpretation Code [facility] Work Phone: UA DIP, URINE (POC)on 2021 BILIRUBIN UA (POCT) Negative Negative Raymundo [facility] CLARITY UA (POCT) Clear [facility] COLOR UA (POCT) Yellow [facility] GLUCOSE UA (POCT) Negative Negative mg/dL [facility] HEMOGLOBIN/BLOOD UA (POCT) Moderate Abnormal Negative [facility] KETONE UA (POCT) Negative Negative mg/dL [facility] LEUKOCYTES UA (POCT) Small Abnormal Negative [facility] NITRITE UA (POCT) Negative Negative [facility] PH UA (POCT) 5.5 4.5 - 8.0 [facility] Protein Ql (U) 30 mg/dL Abnormal Negative mg/dL [facility] SPECIFIC GRAVITY UA (POCT) >=1.030 1.005 - 1.030 [facility] UROBILINOGEN UA (POCT) 0.2 E.U./dL Renetta l E.U./dL [facility] EBV (VCA) IgG Abon 1 EBV (VCA) IgG Ab 6.3 AI Normal [facility] Comment on above: Order Comment: With differential. Is this specimen being sent to an external lab?->No Release to patient->Automatic 75525&Blood^\S\^Vein&Vein Result Comment: AI V ALUES ARE INTERPRETED FOLLOWS: NEGATIVE SPECIMENS <=0.8 EQUIVOCAL SPECIMENS 0.9 TO 1.0 POSITIVE SPECIMENS >=1.1 Antibody index (AI) values reflect qualitative changes in antibody concentration that cannot be associated with clinical condition or disease state. Performed By: #### E BVIG #### [place] [id number] EBV VCA IgG, Qualitative Positive Abnormal NEGAT [facility] Comment on above: Order Comment: With differential. Is this specimen being sent to an external lab?->No Release to patient->Automatic [id number]&Blood^\S\^Vein&Vein Result Comment: Spec imen is positive for EBV VCA IgG antibody. A positive test result presumes a current or past infection with EBV. Other EBV serology assays such as the EBV VCA IgM should be performed to confirm serologic status, active acute, past or indeterminate infection for EBV-associated infectious mononucleosis. Performed By: #### E BVIG #### [address] [id number] EBV (VCA) IgM Abon 1 EBV (VCA) IgM Ab 0.2 AI Normal [facility] Comment on above: Order Comment: With differential. Is this specimen being sent to an external lab?->No 21121&Blood^\S\^Vein&Vein TIBC will be run. Is this specimen being sent to an external lab?->No 85922&Blood^\S\^Vein&Vein TIBC will not be run. Is this specimen being sent to an external lab?->No 13709&Blood^\S\^Vein&Vein Result Comment: AI V ALUES ARE INTERPRETED FOLLOWS: NEGATIVE SPECIMENS <=0.8 EQUIVOCAL SPECIMENS 0.9 TO 1.0 POSITIVE SPECIMENS >=1.1 The magnitude of the reported IgM level cannot be correlated to an endpoint titer (or clinical status). Performed By: #### C BC #### [address] [address] EBV (VCA) IgM Qualitative Negative Normal NEGAT [facility] Comment on above: Order Comment: With differential. Is this specimen being sent to an external lab?->No 33253&Blood^\S\^Vein&Vein TIBC will be run. Is this specimen being sent to an external lab?->No 84702&Blood^\S\^Vein&Vein TIBC will not be run. Is this specimen being sent to an external lab?->No 34636&Blood^\S\^Vein&Vein Result Comment: EBV VCA IgM antibodies are not detectable. Performed By: #### C BC #### [address] [id number] TSH with reflex T4FRon 01-05 TSH with reflex T4FR 3.578 uIU/mL Normal 0.350-5.500 [facility] Comment on above: Order Comment: With differential. Is this specimen being sent to an external lab?->No 30506&Blood^\S\^Vein&Vein TIBC will be run. Is this specimen being sent to an external lab?->No 09960&Blood^\S\^Vein&Vein TIBC will not be run. Is this specimen being sent to an external lab?->No 23694&Blood^\S\^Vein&Vein Performed By: #### C BC #### [place] [address] Complete Blood Counton 01-04 Differential Complete Automated Normal [facility] Comment on above: Order Comment: With differential. Is this specimen being sent to an external lab?->No 32207&Blood^\S\^Vein&Vein TIBC will be run. Is this specimen being sent to an external lab?->No 17086&Blood^\S\^Vein&Vein TIBC will not be run. Is this specimen being sent to an external lab?->No 02498&Blood^\S\^Vein&Vein Performed By: #### C BC #### [place] [address] Basophils/100 WBC (Bld) 0.80 % Normal 0.00-1.00 [facility] Comment on above: Order Comment: With differential. Is this specimen being sent to an external lab?->No 31281&Blood^\S\^Vein&Vein TIBC will be run. Is this specimen being sent to an external lab?->No 41551&Blood^\S\^Vein&Vein TIBC will not be run. Is this specimen being sent to an external lab?->No 05059&Blood^\S\^Vein&Vein Performed By: #### C BC #### [place] [address] Eosinophils/100 WBC (Bld) 1.70 % Normal 0.00-3.00 [facility] Comment on above: Order Comment: With differential. Is this specimen being sent to an external lab?->No 42103&Blood^\S\^Vein&Vein TIBC will be run. Is this specimen being sent to an external lab?->No 92097&Blood^\S\^Vein&Vein TIBC will not be run. Is this specimen being sent to an external lab?->No 14581&Blood^\S\^Vein&Vein Performed By: #### C BC #### [place] [address] Erythrocyte distribution width (RBC) [Ratio] 19.0 % High 0.0-14.4 [facility] Comment on above: Order Comment: With differential. Is this specimen being sent to an external lab?->No 76865&Blood^\S\^Vein&Vein TIBC will be run. Is this specimen being sent to an external lab?->No 04960&Blood^\S\^Vein&Vein TIBC will not be run. Is this specimen being sent to an external lab?->No 63936&Blood^\S\^Vein&Vein Performed By: #### C BC #### [place] [address] Hematocrit (Bld) [Volume fraction] 39.2 % Normal 36.0-44.0 [facility] Comment on above: Order Comment: With differential. Is this specimen being sent to an external lab?->No 15091&Blood^\S\^Vein&Vein TIBC will be run. Is this specimen being sent to an external lab?->No 94210&Blood^\S\^Vein&Vein TIBC will not be run. Is this specimen being sent to an external lab?->No 36492&Blood^\S\^Vein&Vein Performed By: #### C BC #### [place] [address] Hemoglobin (Bld) [Mass/Vol] 12.4 g/dL Normal 12.0-15.0 [facility] Comment on above: Order Comment: With differential. Is this specimen being sent to an external lab?->No 96754&Blood^\S\^Vein&Vein TIBC will be run. Is this specimen being sent to an external lab?->No 14176&Blood^\S\^Vein&Vein TIBC will not be run. Is this specimen being sent to an external lab?->No 75339&Blood^\S\^Vein&Vein Performed By: #### C BC #### [address] [id number] Immature granulocytes/100 WBC (Bld) 0.40 % Normal [facility] Comment on above: Order Comment: With differential. Is this specimen being sent to an external lab?->No 04937&Blood^\S\^Vein&Vein TIBC will be run. Is this specimen being sent to an external lab?->No 35762&Blood^\S\^Vein&Vein TIBC will not be run. Is this specimen being sent to an external lab?->No 81300&Blood^\S\^Vein&Vein Result Comment: Opal ture Granulocyte Percent includes promyelocytes, myelocytes, and metamyelocytes. IG% > 1.0 indicates a left shift is present. With automated differentials, bands are included in the neutrophil count and not in the Immature Granulocyte Percent. Performed By: #### C BC #### [address] [address] Lymphocytes/100 WBC (Bld) 48.9 % High 24.0-44.0 [facility] Comment on above: Order Comment: With differential. Is this specimen being sent to an external lab?->No 70061&Blood^\S\^Vein&Vein TIBC will be run. Is this specimen being sent to an external lab?->No 70853&Blood^\S\^Vein&Vein TIBC will not be run. Is this specimen being sent to an external lab?->No 54466&Blood^\S\^Vein&Vein Performed By: #### C BC #### [address] [id number] MCH (RBC) [Entitic mass] 25.4 pg Low 26.0-34.0 [facility] Comment on above: Order Comment: With differential. Is this specimen being sent to an external lab?->No 91533&Blood^\S\^Vein&Vein TIBC will be run. Is this specimen being sent to an external lab?->No 84038&Blood^\S\^Vein&Vein TIBC will not be run. Is this specimen being sent to an external lab?->No 41117&Blood^\S\^Vein&Vein Performed By: #### C BC #### [place] [address] MCHC 31.6 % Normal 31.0-37.0 [facility] Comment on above: Order Comment: With differential. Is this specimen being sent to an external lab?->No 97571&Blood^\S\^Vein&Vein TIBC will be run. Is this specimen being sent to an external lab?->No 62142&Blood^\S\^Vein&Vein TIBC will not be run. Is this specimen being sent to an external lab?->No 36341&Blood^\S\^Vein&Vein Performed By: #### C BC #### [place] [address] MCV (RBC) [Entitic vol] 80.3 fL Normal 80.0-100.0 [facility] Comment on above: Order Comment: With differential. Is this specimen being sent to an external lab?->No 06758&Blood^\S\^Vein&Vein TIBC will be run. Is this specimen being sent to an external lab?->No 11130&Blood^\S\^Vein&Vein TIBC will not be run. Is this specimen being sent to an external lab?->No 42370&Blood^\S\^Vein&Vein Performed By: #### C BC #### [address] [id number] Monocytes/100 WBC (Bld) 8.50 % High 3.00-6.[address] [facility] Comment on above: Order Comment: With differential. Is this specimen being sent to an external lab?->No 06773&Blood^\S\^Vein&Vein TIBC will be run. Is this specimen being sent to an external lab?->No 31074&Blood^\S\^Vein&Vein TIBC will not be run. Is this specimen being sent to an external lab?->No 85641&Blood^\S\^Vein&Vein Performed By: #### C BC #### [place] [address] Neutrophils (Bld) [#/Vol] 2.0 10*3/uL Normal 2.0-7.2 [facility] Comment on above: Order Comment: With differential. Is this specimen being sent to an external lab?->No 36080&Blood^\S\^Vein&Vein TIBC will be run. Is this specimen being sent to an external lab?->No 11038&Blood^\S\^Vein&Vein TIBC will not be run. Is this specimen being sent to an external lab?->No 11657&Blood^\S\^Vein&Vein Performed By: #### C BC #### [place] [address] Neutrophils/100 WBC (Bld) 39.7 % Normal 35.0-66.0 [facility] Comment on above: Order Comment: With differential. Is this specimen being sent to an external lab?->No 64050&Blood^\S\^Vein&Vein TIBC will be run. Is this specimen being sent to an external lab?->No 84803&Blood^\S\^Vein&Vein TIBC will not be run. Is this specimen being sent to an external lab?->No 79464&Blood^\S\^Vein&Vein Performed By: #### C BC #### [address] [address] Nucleated RBC/100 WBC (Bld) [Ratio] 0.0 % Normal -1.0-0.0 [facility] Comment on above: Order Comment: With differential. Is this specimen being sent to an external lab?->No 53876&Blood^\S\^Vein&Vein TIBC will be run. Is this specimen being sent to an external lab?->No 86697&Blood^\S\^Vein&Vein TIBC will not be run. Is this specimen being sent to an external lab?->No 47943&Blood^\S\^Vein&Vein Performed By: #### C BC #### [place] [id number] Platelet mean volume (Bld) [Entitic vol] 11.0 fL Normal [facility] Comment on above: Order Comment: With differential. Is this specimen being sent to an external lab?->No 18740&Blood^\S\^Vein&Vein TIBC will be run. Is this specimen being sent to an external lab?->No 50721&Blood^\S\^Vein&Vein TIBC will not be run. Is this specimen being sent to an external lab?->No 36869&Blood^\S\^Vein&Vein Result Comment: MPV is platelet range and age dependent Performed By: #### C BC #### [place] [address] Platelets (Bld) [#/Vol] 313 10*3/uL Normal 150-450 [facility] Comment on above: Order Comment: With differential. Is this specimen being sent to an external lab?->No 64180&Blood^\S\^Vein&Vein TIBC will be run. Is this specimen being sent to an external lab?->No 44837&Blood^\S\^Vein&Vein TIBC will not be run. Is this specimen being sent to an external lab?->No 27240&Blood^\S\^Vein&Vein Performed By: #### C BC #### [place] [address] RBC 4.88 10E12/L Normal 4.00-4.90 [facility] Comment on above: Order Comment: With differential. Is this specimen being sent to an external lab?->No 69736&Blood^\S\^Vein&Vein TIBC will be run. Is this specimen being sent to an external lab?->No 82376&Blood^\S\^Vein&Vein TIBC will not be run. Is this specimen being sent to an external lab?->No 18086&Blood^\S\^Vein&Vein Performed By: #### C BC #### [place] [id number] WBC (Bld) [#/Vol] 5.2 10*3/uL Normal 4.5-11.0 [facility] Comment on above: Order Comment: With differential. Is this specimen being sent to an external lab?->No 92201&Blood^\S\^Vein&Vein TIBC will be run. Is this specimen being sent to an external lab?->No 96138&Blood^\S\^Vein&Vein TIBC will not be run. Is this specimen being sent to an external lab?->No 09180&Blood^\S\^Vein&Vein Performed By: #### C BC #### [address] [address] Progress Noteon 01-04-2021 Director Packaging Authentication Interface Message Text Patient ID: Yenny Zee is a 20 y.o. female. Her chief complaint(s) include: Other (possible mono, sore throat, headache, fever 103, extreme fatigue, most symptoms are gone besides fatigue) Assessment 1. Fatigue, unspecified type Plan Yenny was seen today for other. Diagnoses and all orders for this visit: Fatigue, unspecified type - POCT mononucleosis antibodies (Monospot) - Mireya-Villalobos virus VCA, IgG (Clinic Collect) - Mireya-Villalobos virus VCA, IgM (Clinic Collect) - Complete Blood Count with Diff (Clinic Collect) - TSH with Reflex to T4, Free (Clinic Collect) - Venipuncture - POCT Blood Glucose Will obtain laboratory studies to evaluate for mononucleosis. Instructed patient to get plenty of rest and drink fluids. Will hold on athletics until mono test if available. Reviewed signs and symptoms to monitor. Return if symptoms worsen or fail to improve. Subjective She is accompanied by her mother. Pharyngitis The onset has been gradual. The duration has been 1 week. The pattern is persistent. The course is gradually worsening (sore throat improved/fatigue not improving). The patient's symptoms have included fatigue, a fever (x 24 hours), decreased appetite and abdominal pain (initially). The patient's symptoms have included no dizziness, no fussiness, no decreased fluid intake, no congestion, no rhinorrhea, no swollen lymph nodes, no cough, no vomiting and no diarrhea. The patient has been exposed to no sick contacts. Home Management: completed the oral steroids this morning. Primary Care Review of Systems Objective Vital Signs 01/04/21 1041 Temp: 36.4 C (97.6 F) TempSrc: Temporal Weight: 68.9 kg There is no height or weight on file to calculate BMI. Physical Exam Constitutional: She appears well. She is active. No distress. HENT: Head: Atraumatic. Ears: Right Ear: Tympanic membrane normal. Left Ear: Tympanic membrane normal. Nose: No nasal discharge. Mouth/Throat: Mucous membranes are moist. Pharynx erythema (mild) present. Eyes: Conjunctivae are normal. Cardiovascular: Normal rate and regular rhythm. Heart murmur not heard. Pulmonary/Chest: Breath sounds normal. There is normal air entry. Lymphadenopathy: Right anterior (mild) cervical adenopathy present. Left anterior (mild) cervical adenopathy present. Neurological: She is alert. Vitals reviewed: Temperature 36.4 C (97.6 F), temperature source Temporal, weight 68.9 kg. Last Result POCT Blood Glucose Collection Time: 01/04/21 11:37 AM Result Value Ref Range POCT Glucose, Blood 80 70 - 99 mg/dL Normal [facility] SARS-CoV-2 (COVID-19) RT-PCR on 12-30-2020 SARS-CoV-2 (COVID-19) RNA DONALDO+probe Ql (Unsp spec) Negative Normal [facility] Comment on above: Order Comment: Is th is a pre-procedure screening test?->No Is this specimen being sent to an external lab?->No [id number]&Nasal swab^\S\^Nose&Nose Result Comment: NEGA TIVE: SARS-CoV-2 RNA was NOT detected - Interpretation: A negative result indicates severe acute respiratory syndrome coronavirus 2 (SARS-CoV-2) RNA was not detected. Negative results do not preclude SARS-CoV-2 infection and should not be used as the sole basis for patient management decisions. Negative results must be combined with clinical observations, patient history, and epidemiological information. The possibility of a false negative result should be considered if the patient's recent exposures or clinical presentation suggest that SARS-CoV-2 infection is possible, and diagnostic tests for other causes of illness are negative. If SARS-CoV-2 infection is still suspected, re-testing should be considered. - Method: Real-time reverse transcriptase PCR amplification for the qualitative detection of the ORF1 a/b non-structural region that is unique to SARS-CoV-2 and a conserved region in the structural protein envelope E-gene for rivera-Sarbecovirus detection using the Payal SARS-CoV-2 assay on the [employer] Payal [employer] System. - Comment: This test has received FDA Emergency Use Authorization (EUA) and has been verified by [facility]. This test is only authorized for the duration of the public health emergency declaration and the circumstances that exist to justify the authorization of the emergency use of in vitro diagnostic tests for the detection of SARS-CoV-2 virus and/or diagnosis of COVID-19 infection under section 564(b)(1) of the Act, 21 U.S.C. 360bbb-3(b)(1), unless the authorization is terminated or revoked sooner. This test has not been FDA cleared or approved. Results should be used in conjunction with clinical findings, and should not form the sole basis for a diagnosis or treatment decision. - Fact Sheets for this EUA can be found at the following links: For Healthcare Providers: www.fda.gov/media/650502/download For Patients: www.fda.gov/media/361531/download - Reference Value: Negative Performed By: #### C OVID #### [address] [address] Progress Noteon 12-29-2020 Director Packaging Authentication Interface Message Text Patient ID: Yenny Zee is a 20 y.o. female. Her chief complaint(s) include: Pharyngitis (stomache x 2days) and Iron Deficiency Assessment 1. Sore throat 2. History of anemia 3. Suspected COVID-19 virus infection Plan Yenny was seen today for pharyngitis and iron deficiency. Diagnoses and all orders for this visit: Sore throat - POCT rapid strep A antigen - SARS COV-2 RT-PCR - Strep culture (Clinic Collect) History of anemia - Finger/Heel Stick (Clinic Collect) - POCT Hemoglobin Female Suspected COVID-19 virus infection - SARS COV-2 RT-PCR Return PRN. please print school note submitted. poct hemoglobin in normal range today. POCT strep is negative, strep culture sent. Also obtained covid19 testing. She is immunized for covid19. Discussed supportive care measures, use of medication as appropriate and when to call the office or seek medical care. Subjective HPI Sore throat recently, it looked inflamed on the right side Some stomach issues No fatigue No nasal congestion She has also had issues with anemia, diagnosed last year. Has had improving/normalizi ng hemoglobin since that time, has been in for monitoring of this every few months. She has not been taking iron supplement since September, however she does her best to eat iron rich foods. She is active in volleyball and collegiate academics. Primary Care Review of Systems Objective Vital Signs 12/29/20 1554 Temp: 36.7 C (98 F) TempSrc: Temporal There is no height or weight on file to calculate BMI. Physical Exam Constitutional: She is active. No distress. HENT: Head: Atraumatic. No sinus tenderness. Ears: Right Ear: Tympanic membrane normal. Left Ear: Tympanic membrane normal. Nose: No nasal discharge. Mouth/Throat: Mucous membranes are moist. Pharynx erythema present. Eyes: Conjunctivae are normal. Right conjunctiva is not injected. Left conjunctiva is not injected. Cardiovascular: Normal rate and regular rhythm. Heart murmur not heard. Pulmonary/Chest: Breath sounds normal. There is normal air entry. She has no wheezes. She has no rhonchi. She has no rales. Lymphadenopathy: No right anterior cervical adenopathy present. No left anterior cervical adenopathy present. Neurological: She is alert. Last Result POCT Hemoglobin Female Collection Time: 12/29/20 4:24 PM Result Value Ref Range POCT Hemoglobin, Blood Female 12.5 12 - 15 g/dl POCT rapid strep A antigen Collection Time: 12/29/20 3:58 PM Result Value Ref Range Strep A Antigen None Detected None Detected Yellow Solution *Present Red Control Line *Present Clear Background *Present Lot Number [id number] Normal [facility] SARS-CoV-2 (COVID-19) RT-PCR on 12-29-2020 Date of Symptom Onset [id number] Normal [facility] Comment on above: Order Comment: Is th is a pre-procedure screening test?->No Is this specimen being sent to an external lab?->No 36712&Nasal swab^\S\^Nose&Nose Performed By: #### C OVID #### [place] [address] Employed in Healthcare setting? No Normal [facility] Comment on above: Order Comment: Is th is a pre-procedure screening test?->No Is this specimen being sent to an external lab?->No [id number]&Nasal swab^\S\^Nose&Nose Performed By: #### C OVID #### [place] [address] Hospitalized? No Normal [facility] Comment on above: Order Comment: Is th is a pre-procedure screening test?->No Is this specimen being sent to an external lab?->No [id number]&Nasal swab^\S\^Nose&Nose Performed By: #### C OVID #### [place] [address] ICU? No Normal [facility] Comment on above: Order Comment: Is th is a pre-procedure screening test?->No Is this specimen being sent to an external lab?->No [id number]&Nasal swab^\S\^Nose&Nose Performed By: #### C OVID #### [place] [address] ? Unknown Normal [facility] Comment on above: Order Comment: Is th is a pre-procedure screening test?->No Is this specimen being sent to an external lab?->No [id number]&Nasal swab^\S\^Nose&Nose Performed By: #### C OVID #### [place] [address] Resident in congregate care setting? No Normal [facility] Comment on above: Order Comment: Is th is a pre-procedure screening test?->No Is this specimen being sent to an external lab?->No [id number]&Nasal swab^\S\^Nose&Nose Performed By: #### C OVID #### [address] [address] SARS-CoV-2 (COVID-19) RNA DONALDO+probe Ql (Unsp spec) Yes Normal [facility] Comment on above: Order Comment: Is th is a pre-procedure screening test?->No Is this specimen being sent to an external lab?->No [id number]&Nasal swab^\S\^Nose&Nose Performed By: #### C OVID #### [address] [address] Symptomatic as defined by CDC? Yes Normal [facility] Comment on above: Order Comment: Is th is a pre-procedure screening test?->No Is this specimen being sent to an external lab?->No [id number]&Nasal swab^\S\^Nose&Nose Performed By: #### C OVID #### [address] [address] Strep Cultureon 12-29-2020 Strep Culture Is this specimen being sent to an external lab?->No Release to patient->Automatic [id number]&Throat swab^^^Throat-phary nx&Throat-pharynx Strep Culture: No Beta hemolytic Streptococci isolated. Source: THRSW Collected: 12/29/20 16:25 Site: Throat-pharynx Received : 12/29/20 21:02 Strep Culture FINAL 12/31/20 12:58 No Beta hemolytic Streptococci isolated. Normal [facility] Comment on above: Performed By: #### C BC #### [address] [address] Hemoglobin HPLCon 10-09-2020 A Hgb 96.9 % Normal 95.0-100.0 [facility] Comment on above: Order Comment: With differential. Has the specimen been drawn from a line flushed with Heparin?->No Release to patient->Automatic Is this specimen being sent to an external lab?->No [id number]&Blood^\S\^Vein&Vein Performed By: #### H HPLC #### [place] [address] A2Hgb 2.6 % Normal 1.8-3.2 [facility] Comment on above: Order Comment: With differential. Has the specimen been drawn from a line flushed with Heparin?->No Release to patient->Automatic Is this specimen being sent to an external lab?->No 66227&Blood^\S\^Vein&Vein Performed By: #### H HPLC #### [place] [address] Comment ----- Normal [facility] Comment on above: Order Comment: With differential. Has the specimen been drawn from a line flushed with Heparin?->No Release to patient->Automatic Is this specimen being sent to an external lab?->No 70531&Blood^\S\^Vein&Vein Result Comment: No a bnormal hemoglobins detected. Performed By: #### H HPLC #### [place] [address] Hgb <1.0 Normal 0.0-1.9 [facility] Comment on above: Order Comment: With differential. Has the specimen been drawn from a line flushed with Heparin?->No Release to patient->Automatic Is this specimen being sent to an external lab?->No 78021&Blood^\S\^Vein&Vein Performed By: #### H HPLC #### [place] [address] Complete Blood Counton 10-07 Differential Complete Manual Normal [facility] Comment on above: Order Comment: With differential. Is this specimen being sent to an external lab?->No [id number]&Blood^\S\^Vein&Vein TIBC will be run. Is this specimen being sent to an external lab?->No 02314&Blood^\S\^Vein&Vein TIBC will not be run. Is this specimen being sent to an external lab?->No 58618&Blood^\S\^Vein&Vein Performed By: #### C BC #### [place] [address] Erythrocyte distribution width (RBC) [Ratio] 18.3 % High 0.0-14.4 [facility] Comment on above: Order Comment: With differential. Is this specimen being sent to an external lab?->No 50015&Blood^\S\^Vein&Vein TIBC will be run. Is this specimen being sent to an external lab?->No 57618&Blood^\S\^Vein&Vein TIBC will not be run. Is this specimen being sent to an external lab?->No [address]165&Blood^\S\^Vein&Vein Performed By: #### C BC #### [place] [address] Hematocrit (Bld) [Volume fraction] 40.3 % Normal 37.0-46.0 [facility] Comment on above: Order Comment: With differential. Is this specimen being sent to an external lab?->No 91502&Blood^\S\^Vein&Vein TIBC will be run. Is this specimen being sent to an external lab?->No 58822&Blood^\S\^Vein&Vein TIBC will not be run. Is this specimen being sent to an external lab?->No 08605&Blood^\S\^Vein&Vein Performed By: #### C BC #### [place] [address] Hemoglobin (Bld) [Mass/Vol] 12.7 g/dL Normal 12.0-15.0 [facility] Comment on above: Order Comment: With differential. Is this specimen being sent to an external lab?->No 21726&Blood^\S\^Vein&Vein TIBC will be run. Is this specimen being sent to an external lab?->No 84004&Blood^\S\^Vein&Vein TIBC will not be run. Is this specimen being sent to an external lab?->No 18969&Blood^\S\^Vein&Vein Performed By: #### C BC #### [place] [address] Immature granulocytes/100 WBC (Bld) 0.20 % Normal [facility] Comment on above: Order Comment: With differential. Is this specimen being sent to an external lab?->No 82109&Blood^\S\^Vein&Vein TIBC will be run. Is this specimen being sent to an external lab?->No 97021&Blood^\S\^Vein&Vein TIBC will not be run. Is this specimen being sent to an external lab?->No 62042&Blood^\S\^Vein&Vein Result Comment: Opal ture Granulocyte Percent includes promyelocytes, myelocytes, and metamyelocytes. IG% > 1.0 indicates a left shift is present. With automated differentials, bands are included in the neutrophil count and not in the Immature Granulocyte Percent. Performed By: #### C BC #### [place] [address] MCH (RBC) [Entitic mass] 26.4 pg Normal 25.0-35.0 [facility] Comment on above: Order Comment: With differential. Is this specimen being sent to an external lab?->No 86621&Blood^\S\^Vein&Vein TIBC will be run. Is this specimen being sent to an external lab?->No 99975&Blood^\S\^Vein&Vein TIBC will not be run. Is this specimen being sent to an external lab?->No 80190&Blood^\S\^Vein&Vein Performed By: #### C BC #### [place] [address] MCHC 31.5 % Normal 31.0-37.0 [facility] Comment on above: Order Comment: With differential. Is this specimen being sent to an external lab?->No 50596&Blood^\S\^Vein&Vein TIBC will be run. Is this specimen being sent to an external lab?->No 33935&Blood^\S\^Vein&Vein TIBC will not be run. Is this specimen being sent to an external lab?->No 57739&Blood^\S\^Vein&Vein Performed By: #### C BC #### [place] [id number] MCV (RBC) [Entitic vol] 83.8 fL Normal 78.0-96.[address] [facility] Comment on above: Order Comment: With differential. Is this specimen being sent to an external lab?->No 80282&Blood^\S\^Vein&Vein TIBC will be run. Is this specimen being sent to an external lab?->No 03558&Blood^\S\^Vein&Vein TIBC will not be run. Is this specimen being sent to an external lab?->No 59785&Blood^\S\^Vein&Vein Performed By: #### C BC #### [place] [address] Nucleated RBC/100 WBC (Bld) [Ratio] 0.0 % Normal -1.0-0.0 [facility] Comment on above: Order Comment: With differential. Is this specimen being sent to an external lab?->No 86177&Blood^\S\^Vein&Vein TIBC will be run. Is this specimen being sent to an external lab?->No 99000&Blood^\S\^Vein&Vein TIBC will not be run. Is this specimen being sent to an external lab?->No 31192&Blood^\S\^Vein&Vein Performed By: #### C BC #### [place] [address] Platelet mean volume (Bld) [Entitic vol] 11.1 fL Normal [facility] Comment on above: Order Comment: With differential. Is this specimen being sent to an external lab?->No 46946&Blood^\S\^Vein&Vein TIBC will be run. Is this specimen being sent to an external lab?->No 62867&Blood^\S\^Vein&Vein TIBC will not be run. Is this specimen being sent to an external lab?->No 51210&Blood^\S\^Vein&Vein Result Comment: MPV is platelet range and age dependent Performed By: #### C BC #### [place] [address] Platelets (Bld) [#/Vol] 288 10*3/uL Normal 150-450 [facility] Comment on above: Order Comment: With differential. Is this specimen being sent to an external lab?->No 02730&Blood^\S\^Vein&Vein TIBC will be run. Is this specimen being sent to an external lab?->No 86654&Blood^\S\^Vein&Vein TIBC will not be run. Is this specimen being sent to an external lab?->No 10440&Blood^\S\^Vein&Vein Performed By: #### C BC #### [place] [address] RBC 4.81 10E12/L High 4.10-4.80 [facility] Comment on above: Order Comment: With differential. Is this specimen being sent to an external lab?->No 48745&Blood^\S\^Vein&Vein TIBC will be run. Is this specimen being sent to an external lab?->No 46487&Blood^\S\^Vein&Vein TIBC will not be run. Is this specimen being sent to an external lab?->No 95112&Blood^\S\^Vein&Vein Performed By: #### C BC #### [place] [id number] WBC (Bld) [#/Vol] 4.4 10*3/uL Low 4.5-13.0 [facility] Comment on above: Order Comment: With differential. Is this specimen being sent to an external lab?->No 42633&Blood^\S\^Vein&Vein TIBC will be run. Is this specimen being sent to an external lab?->No 24139&Blood^\S\^Vein&Vein TIBC will not be run. Is this specimen being sent to an external lab?->No 08906&Blood^\S\^Vein&Vein Performed By: #### C BC #### [place] [address] Hemoglobin HPLCon 10-07-2020 Hemoglobin Variants ----- Normal [facility] Comment on above: Order Comment: With differential. Has the specimen been drawn from a line flushed with Heparin?->No Release to patient->Automatic Is this specimen being sent to an external lab?->No 82754&Blood^\S\^Vein&Vein Performed By: #### H HPLC #### [place] [address] Manual Differentialon 2020 Absolute Neutrophil No. 2.7 10E3/uL Normal 2.0-7.2 [facility] Comment on above: Order Comment: With differential. Has the specimen been drawn from a line flushed with Heparin?->No Release to patient->Automatic Is this specimen being sent to an external lab?->No 04016&Blood^\S\^Vein&Vein Performed By: #### M DIFF #### [place] [address] Atypical Lymphocytes 1 % Normal 0-8 [facility] Comment on above: Order Comment: With differential. Has the specimen been drawn from a line flushed with Heparin?->No Release to patient->Automatic Is this specimen being sent to an external lab?->No 68080&Blood^\S\^Vein&Vein Performed By: #### M DIFF #### [place] [address] Band Neutrophils 5 % Normal 5-11 [facility] Comment on above: Order Comment: With differential. Has the specimen been drawn from a line flushed with Heparin?->No Release to patient->Automatic Is this specimen being sent to an external lab?->No 00578&Blood^\S\^Vein&Vein Performed By: #### M DIFF #### [address] [address] Cell Morphology Normal Normal [facility] Comment on above: Order Comment: With differential. Has the specimen been drawn from a line flushed with Heparin?->No Release to patient->Automatic Is this specimen being sent to an external lab?->No 66725&Blood^\S\^Vein&Vein Performed By: #### M DIFF #### [address] [address] Eosinophils 2 % Normal 0-3 [facility] Comment on above: Order Comment: With differential. Has the specimen been drawn from a line flushed with Heparin?->No Release to patient->Automatic Is this specimen being sent to an external lab?->[place] 48190&Blood^\S\^Vein&Vein Performed By: #### M DIFF #### [address] [address] Lymphocytes 34 % Normal 25-45 [facility] Comment on above: Order Comment: With differential. Has the specimen been drawn from a line flushed with Heparin?->No Release to patient->Automatic Is this specimen being sent to an external lab?->No 92980&Blood^\S\^Vein&Vein Performed By: #### M DIFF #### [address] [address] Metamyelocytes 0 % Normal 0-0 [facility] Comment on above: Order Comment: With differential. Has the specimen been drawn from a line flushed with Heparin?->No Release to patient->Automatic Is this specimen being sent to an external lab?->No 99378&Blood^\S\^Vein&Vein Performed By: #### M DIFF #### [address] [address] Monocytes 2 % Low 3-6 [facility] Comment on above: Order Comment: With differential. Has the specimen been drawn from a line flushed with Heparin?->No Release to patient->Automatic Is this specimen being sent to an external lab?->No 69022&Blood^\S\^Vein&Vein Performed By: #### M DIFF #### [address] [address] Myelocytes 0 % Normal 0-0 [facility] Comment on above: Order Comment: With differential. Has the specimen been drawn from a line flushed with Heparin?->No Release to patient->Automatic Is this specimen being sent to an external lab?->No 19718&Blood^\S\^Vein&Vein Performed By: #### M DIFF #### [place] [address] Promyelocytes 0 % Normal 0-0 [facility] Comment on above: Order Comment: With differential. Has the specimen been drawn from a line flushed with Heparin?->No Release to patient->Automatic Is this specimen being sent to an external lab?->No 70205&Blood^\S\^Vein&Vein Performed By: #### M DIFF #### [place] [address] Segmented Neutrophils 56 % Normal 34-64 [facility] Comment on above: Order Comment: With differential. Has the specimen been drawn from a line flushed with Heparin?->No Release to patient->Automatic Is this specimen being sent to an external lab?->No 82965&Blood^\S\^Vein&Vein Performed By: #### M DIFF #### [address] [address] Ferritinon 09-25-2020 Ferritin [Mass/Vol] 11 ng/mL Low 12-156 [facility] Comment on above: Order Comment: With differential. Has the specimen been drawn from a line flushed with Heparin?->No Release to patient->Automatic Is this specimen being sent to an external lab?->No 34405&Blood^\S\^Vein&Vein Performed By: #### M DIFF #### [facility] [place] [address] [place] [address] Complete Blood Counton 09-24 Differential Complete Automated Normal [facility] Comment on above: Order Comment: With differential. Release to patient->Automatic Is this specimen being sent to an external lab?->No 99339&Blood^\S\^Venous&Venous TIBC will not be run. Release to patient->Automatic Is this specimen being sent to an external lab?->No 31948&Blood^\S\^Venous&Venous Performed By: #### C BC #### [address] [address] Basophils/100 WBC (Bld) 0.40 % Normal 0.00-1.00 [facility] Comment on above: Order Comment: With differential. Release to patient->Automatic Is this specimen being sent to an external lab?->No 18468&Blood^\S\^Venous&Venous TIBC will not be run. Release to patient->Automatic Is this specimen being sent to an external lab?->[place] [address]159&Blood^\S\^Venous&Venous Performed By: #### C BC #### [address] [address] Eosinophils/100 WBC (Bld) 4.50 % High 0.00-3.00 [facility] Comment on above: Order Comment: With differential. Release to patient->Automatic Is this specimen being sent to an external lab?->No 83007&Blood^\S\^Venous&Venous TIBC will not be run. Release to patient->Automatic Is this specimen being sent to an external lab?->No 78544&Blood^\S\^Venous&Venous Performed By: #### C BC #### [address] [address] Erythrocyte distribution width (RBC) [Ratio] 17.6 % High 0.0-14.4 [facility] Comment on above: Order Comment: With differential. Release to patient->Automatic Is this specimen being sent to an external lab?->[place] 72806&Blood^\S\^Venous&Venous TIBC will not be run. Release to patient->Automatic Is this specimen being sent to an external lab?->No 40670&Blood^\S\^Venous&Venous Performed By: #### C BC #### [place] [address] Hematocrit (Bld) [Volume fraction] 38.6 % Normal 37.0-46.0 [facility] Comment on above: Order Comment: With differential. Release to patient->Automatic Is this specimen being sent to an external lab?->No 69040&Blood^\S\^Venous&Venous TIBC will not be run. Release to patient->Automatic Is this specimen being sent to an external lab?->No 94656&Blood^\S\^Venous&Venous Performed By: #### C BC #### [place] [address] Hemoglobin (Bld) [Mass/Vol] 12.4 g/dL Normal 12.0-15.0 [facility] Comment on above: Order Comment: With differential. Release to patient->Automatic Is this specimen being sent to an external lab?->No 14690&Blood^\S\^Venous&Venous TIBC will not be run. Release to patient->Automatic Is this specimen being sent to an external lab?->[place] 37986&Blood^\S\^Venous&Venous Performed By: #### C BC #### [place] [address] Immature granulocytes/100 WBC (Bld) 0.20 % Normal [facility] Comment on above: Order Comment: With differential. Release to patient->Automatic Is this specimen being sent to an external lab?->No 64838&Blood^\S\^Venous&Venous TIBC will not be run. Release to patient->Automatic Is this specimen being sent to an external lab?->No 01660&Blood^\S\^Venous&Venous Result Comment: Opal ture Granulocyte Percent includes promyelocytes, myelocytes, and metamyelocytes. IG% > 1.0 indicates a left shift is present. With automated differentials, bands are included in the neutrophil count and not in the Immature Granulocyte Percent. Performed By: #### C BC #### [address] [id number] Lymphocytes/100 WBC (Bld) 33.1 % Normal 25.0-45.0 [facility] Comment on above: Order Comment: With differential. Release to patient->Automatic Is this specimen being sent to an external lab?->No 39594&Blood^\S\^Venous&Venous TIBC will not be run. Release to patient->Automatic Is this specimen being sent to an external lab?->No 90110&Blood^\S\^Venous&Venous Performed By: #### C BC #### [address] [id number] MCH (RBC) [Entitic mass] 26.1 pg Normal 25.0-35.0 [facility] Comment on above: Order Comment: With differential. Release to patient->Automatic Is this specimen being sent to an external lab?->No 70631&Blood^\S\^Venous&Venous TIBC will not be run. Release to patient->Automatic Is this specimen being sent to an external lab?->No 43551&Blood^\S\^Venous&Venous Performed By: #### C BC #### [address] [id number] MCHC 32.1 % Normal 31.0-37.0 [facility] Comment on above: Order Comment: With differential. Release to patient->Automatic Is this specimen being sent to an external lab?->No 91556&Blood^\S\^Venous&Venous TIBC will not be run. Release to patient->Automatic Is this specimen being sent to an external lab?->No 76501&Blood^\S\^Venous&Venous Performed By: #### C BC #### [address] [id number] MCV (RBC) [Entitic vol] 81.3 fL Normal 78.0-96.0 [facility] Comment on above: Order Comment: With differential. Release to patient->Automatic Is this specimen being sent to an external lab?->No 39157&Blood^\S\^Venous&Venous TIBC will not be run. Release to patient->Automatic Is this specimen being sent to an external lab?->No 52232&Blood^\S\^Venous&Venous Performed By: #### C BC #### [address] [address] Monocytes/100 WBC (Bld) 11.30 % High 3.00-6.00 [facility] Comment on above: Order Comment: With differential. Release to patient->Automatic Is this specimen being sent to an external lab?->No 62773&Blood^\S\^Venous&Venous TIBC will not be run. Release to patient->Automatic Is this specimen being sent to an external lab?->No 45120&Blood^\S\^Venous&Venous Performed By: #### C BC #### [address] [address] Neutrophils (Bld) [#/Vol] 2.8 10*3/uL Normal 2.0-7.2 [facility] Comment on above: Order Comment: With differential. Release to patient->Automatic Is this specimen being sent to an external lab?->No 71266&Blood^\S\^Venous&Venous TIBC will not be run. Release to patient->Automatic Is this specimen being sent to an external lab?->No 80494&Blood^\S\^Venous&Venous Performed By: #### C BC #### [facility] [address] [place] [address] Neutrophils/100 WBC (Bld) 50.5 % Normal 34.0-64.0 [facility] Comment on above: Order Comment: With differential. Release to patient->Automatic Is this specimen being sent to an external lab?->No 52385&Blood^\S\^Venous&Venous TIBC will not be run. Release to patient->Automatic Is this specimen being sent to an external lab?->No 13188&Blood^\S\^Venous&Venous Performed By: #### C BC #### [place] [address] Nucleated RBC/100 WBC (Bld) [Ratio] 0.0 % Normal -1.0-0.0 [facility] Comment on above: Order Comment: With differential. Release to patient->Automatic Is this specimen being sent to an external lab?->No 90995&Blood^\S\^Venous&Venous TIBC will not be run. Release to patient->Automatic Is this specimen being sent to an external lab?->No 71846&Blood^\S\^Venous&Venous Performed By: #### C BC #### [place] [address] Platelet mean volume (Bld) [Entitic vol] 11.1 fL Normal [facility] Comment on above: Order Comment: With differential. Release to patient->Automatic Is this specimen being sent to an external lab?->No 62993&Blood^\S\^Venous&Venous TIBC will not be run. Release to patient->Automatic Is this specimen being sent to an external lab?->No 97690&Blood^\S\^Venous&Venous Result Comment: MPV is platelet range and age dependent Performed By: #### C BC #### [place] [address] Platelets (Bld) [#/Vol] 262 10*3/uL Normal 150-450 [facility] Comment on above: Order Comment: With differential. Release to patient->Automatic Is this specimen being sent to an external lab?->No 13101&Blood^\S\^Venous&Venous TIBC will not be run. Release to patient->Automatic Is this specimen being sent to an external lab?->No 26962&Blood^\S\^Venous&Venous Performed By: #### C BC #### [place] [address] RBC 4.75 10E12/L Normal 4.10-4.80 [facility] Comment on above: Order Comment: With differential. Release to patient->Automatic Is this specimen being sent to an external lab?->No 36766&Blood^\S\^Venous&Venous TIBC will not be run. Release to patient->Automatic Is this specimen being sent to an external lab?->No 26301&Blood^\S\^Venous&Venous Performed By: #### C BC #### [place] [address] WBC (Bld) [#/Vol] 5.5 10*3/uL Normal 4.5-13.0 [facility] Comment on above: Order Comment: With differential. Release to patient->Automatic Is this specimen being sent to an external lab?->No 34032&Blood^\S\^Venous&Venous TIBC will not be run. Release to patient->Automatic Is this specimen being sent to an external lab?->No 03378&Blood^\S\^Venous&Venous Performed By: #### C BC #### [place] [address] Progress Noteon 09-24-2020 Director Packaging Authentication Interface Message Text Patient ID: Yenny Zee is a 19 y.o. female. Her chief complaint(s) include: 19 YEAR WELL CHILD Assessment 1. Routine general medical examination at a health care facility 2. Iron deficiency anemia secondary to inadequate dietary iron intake Plan Yenny was seen today for 19 year well child. Diagnoses and all orders for this visit: Routine general medical examination at a health care facility - PHQ9 Assessment With Score - Health Risk Assessment - CRAFFT Iron deficiency anemia secondary to inadequate dietary iron intake - Complete Blood Count with Diff (Clinic Collect) - Ferritin (Clinic Collect) - Venipuncture Will recheck patient's cbc and ferritin level to assess whether patient can discontinue the iron supplement. Return in about 1 year (around 09/24/2021) for well check. Subjective 19 YEAR WELL CHILD Complications after delivery: parental limits and consequences for unacceptable behavior Home: Yenny eats meals with family, has an adult to turn to for help and is permitted and able to make independent decisions. Yenny has no home risk identified and does not pay the bills. Education: Yenny is in 12th grade and is doing well, is getting along with peers and is meeting expectations. (Graduated from high school this year--going to college at [employer]). Eating: Yenny eats regular meals including fruits and vegetables, eats breakfast (sometimes), limits fast food, drinks non-sweetened liquids and has a calcium source. Yenny does not have concerns about body appearance. Activities & Sports: Yenny has a job, performs at least 1 hour of physical activity daily, plays team sports (volleyball/basketb all) and has drivers license. Yenny engages in screen time more than 2 hours daily. Drugs: Yenny does not use tobacco, does not use drugs, does not use alcohol and does not vape. Safety: Yenny has a violence free home, has peer relationships free from violence, uses helmet and uses seat belt. Yenny does not use phone/text while driving. Sex: The patient does not currently have a sexual partner. The patient is interested in males. The patient's sexual orientation is heterosexual. The patient's gender identity is cisgender. Typically, the patient uses condoms as current contraceptive method. The patient's history is Suicidality: Yenny has ways to cope with stress and displays self-confidence. Yenny has no problems with sleep, has no depression, has no anxiety, does not have mood swings, has no suicidal ideation and has no homicidal ideation. PHQ-9 Score: 0 Menstruation (Menarche: 14 years old) Menstruation: irregular periods (irregular at times but getting better) Output Urine and Stool Pattern: Urine and Stool Pattern: Normal stool pattern, no constipation, normal urine pattern, no nocturnal enuresis. Stool Consistency: soft Sleep Sleeping Difficulty: no difficulty sleeping Hours of sleep at a time: 8 Teen Anticipatory Guidance The following anticipatory guidance was reviewed during the visit: Nutrition: limit junk food/fast food and soft drinks. Safety: use safety helmet/gear with activities. Social: avoid or limit screen time and parental limits and consequences for unacceptable behavior. Health: age appropriate dental care, age appropriate sleep habits, elevated noise and hearing, avoid situations where drugs and alcohol are present, how to resist peer pressure to smoke, drink, use drugs, contraception/pract ice safe sex/ use condoms, practice abstinence- the safest way to prevent and STDs, puberty/sexual development/contrac eptions/STDs and limit sun exposure/use sunscreen. Screenings Previous Vaccine Reactions: No. Life events information was reviewed-no referral needed (social determinant questionnaire completed: no concerns at this time) Tuberculosis Concerns: Negative Tuberculosis Screen Concerns: no exposure to Tb or person with positive ppd Hearing Vision Concerns: The caregiver has no concerns about the patient's hearing. The caregiver has no concerns about the patient's vision. Hyperlipidemia Concerns: Negative Hyperlipidemia Screen Concerns: no parent or grandparent with ND angina peripheral or cerebrovascular disease <55 years and no parent with cholesterol >240mg/dl Primary Care Review of Systems Objective Vital Signs 09/24/20 1609 BP: 121/67 Pulse: 86 Weight: 68.7 kg Height: 167.8 cm Body mass index is 24.4 kg/m . Physical Exam Constitutional: She appears well. She is active. No distress. HENT: Head: Atraumatic. Ears: Right Ear: Tympanic membrane and external ear normal. Left Ear: Tympanic membrane and external ear normal. Nose: Nose normal. Mouth/Throat: Mucous membranes are moist. Dentition is normal. Oropharynx is clear. Eyes: Conjunctivae and EOM are normal. No strabismus. Pupils are equal, round, and reactive to light. Neck: Neck (more content not included)... Normal [facility] Complete Blood Counton 04-03 Differential Complete Automated Normal [facility] Comment on above: Order Comment: With differential. Is this specimen being sent to an external lab?->No 94272&Blood^\S\^Vein&Vein TIBC will be run. Is this specimen being sent to an external lab?->No 39489&Blood^\S\^Vein&Vein TIBC will not be run. Is this specimen being sent to an external lab?->No 20235&Blood^\S\^Vein&Vein Performed By: #### C BC #### [address] [address] Basophils/100 WBC (Bld) 0.50 % Normal 0.00-1.[address] [facility] Comment on above: Order Comment: With differential. Is this specimen being sent to an external lab?->No 47699&Blood^\S\^Vein&Vein TIBC will be run. Is this specimen being sent to an external lab?->No 50274&Blood^\S\^Vein&Vein TIBC will not be run. Is this specimen being sent to an external lab?->No 21086&Blood^\S\^Vein&Vein Performed By: #### C BC #### [place] [address] Eosinophils/100 WBC (Bld) 1.40 % Normal 0.00-3.00 [facility] Comment on above: Order Comment: With differential. Is this specimen being sent to an external lab?->No 13031&Blood^\S\^Vein&Vein TIBC will be run. Is this specimen being sent to an external lab?->No 23870&Blood^\S\^Vein&Vein TIBC will not be run. Is this specimen being sent to an external lab?->No 72373&Blood^\S\^Vein&Vein Performed By: #### C BC #### [place] [address] Erythrocyte distribution width (RBC) [Ratio] 27.5 % High 0.0-14.4 [facility] Comment on above: Order Comment: With differential. Is this specimen being sent to an external lab?->No 44542&Blood^\S\^Vein&Vein TIBC will be run. Is this specimen being sent to an external lab?->No 54573&Blood^\S\^Vein&Vein TIBC will not be run. Is this specimen being sent to an external lab?->No 95154&Blood^\S\^Vein&Vein Performed By: #### C BC #### [place] [address] Hematocrit (Bld) [Volume fraction] 39.4 % Normal 37.0-46.0 [facility] Comment on above: Order Comment: With differential. Is this specimen being sent to an external lab?->No 39490&Blood^\S\^Vein&Vein TIBC will be run. Is this specimen being sent to an external lab?->No 55758&Blood^\S\^Vein&Vein TIBC will not be run. Is this specimen being sent to an external lab?->No 62619&Blood^\S\^Vein&Vein Performed By: #### C BC #### [place] [address] Hemoglobin (Bld) [Mass/Vol] 12.1 g/dL Normal 12.0-15.0 [facility] Comment on above: Order Comment: With differential. Is this specimen being sent to an external lab?->No 59712&Blood^\S\^Vein&Vein TIBC will be run. Is this specimen being sent to an external lab?->No 16883&Blood^\S\^Vein&Vein TIBC will not be run. Is this specimen being sent to an external lab?->No 77926&Blood^\S\^Vein&Vein Performed By: #### C BC #### [place] [address] Immature granulocytes/100 WBC (Bld) 0.20 % Normal [facility] Comment on above: Order Comment: With differential. Is this specimen being sent to an external lab?->No 80459&Blood^\S\^Vein&Vein TIBC will be run. Is this specimen being sent to an external lab?->No 81599&Blood^\S\^Vein&Vein TIBC will not be run. Is this specimen being sent to an external lab?->No 74447&Blood^\S\^Vein&Vein Result Comment: Opal ture Granulocyte Percent includes promyelocytes, myelocytes, and metamyelocytes. IG% > 1.0 indicates a left shift is present. With automated differentials, bands are included in the neutrophil count and not in the Immature Granulocyte Percent. Performed By: #### C BC #### [place] [id number] Lymphocytes/100 WBC (Bld) 29.8 % Normal 25.0-45.0 [facility] Comment on above: Order Comment: With differential. Is this specimen being sent to an external lab?->No 76527&Blood^\S\^Vein&Vein TIBC will be run. Is this specimen being sent to an external lab?->No 13557&Blood^\S\^Vein&Vein TIBC will not be run. Is this specimen being sent to an external lab?->No 29286&Blood^\S\^Vein&Vein Performed By: #### C BC #### [place] [phone] MCH (RBC) [Entitic mass] 24.0 pg Low 25.0-35.0 [facility] Comment on above: Order Comment: With differential. Is this specimen being sent to an external lab?->No 85252&Blood^\S\^Vein&Vein TIBC will be run. Is this specimen being sent to an external lab?->No 99229&Blood^\S\^Vein&Vein TIBC will not be run. Is this specimen being sent to an external lab?->No 96398&Blood^\S\^Vein&Vein Performed By: #### C BC #### [place] [address] MCHC 30.7 % Low 31.0-37.0 [facility] Comment on above: Order Comment: With differential. Is this specimen being sent to an external lab?->No 08696&Blood^\S\^Vein&Vein TIBC will be run. Is this specimen being sent to an external lab?->No 62697&Blood^\S\^Vein&Vein TIBC will not be run. Is this specimen being sent to an external lab?->No 48632&Blood^\S\^Vein&Vein Performed By: #### C BC #### [place] [phone] MCV (RBC) [Entitic vol] 78.2 fL Normal 78.0-96.[address] [facility] Comment on above: Order Comment: With differential. Is this specimen being sent to an external lab?->No 66559&Blood^\S\^Vein&Vein TIBC will be run. Is this specimen being sent to an external lab?->No 23761&Blood^\S\^Vein&Vein TIBC will not be run. Is this specimen being sent to an external lab?->No 36030&Blood^\S\^Vein&Vein Performed By: #### C BC #### [address] [address] Monocytes/100 WBC (Bld) 7.10 % High 3.00-6.[address] [facility] Comment on above: Order Comment: With differential. Is this specimen being sent to an external lab?->No 40175&Blood^\S\^Vein&Vein TIBC will be run. Is this specimen being sent to an external lab?->No 10104&Blood^\S\^Vein&Vein TIBC will not be run. Is this specimen being sent to an external lab?->No 64919&Blood^\S\^Vein&Vein Performed By: #### C BC #### [place] [address] MPV Not Available Normal [facility] Comment on above: Order Comment: With differential. Is this specimen being sent to an external lab?->No 62505&Blood^\S\^Vein&Vein TIBC will be run. Is this specimen being sent to an external lab?->No 45115&Blood^\S\^Vein&Vein TIBC will not be run. Is this specimen being sent to an external lab?->No 09187&Blood^\S\^Vein&Vein Result Comment: MPV is platelet range and age dependent Performed By: #### C BC #### [address] [address] Neutrophils (Bld) [#/Vol] 2.6 10*3/uL Normal 2.0-7.2 [facility] Comment on above: Order Comment: With differential. Is this specimen being sent to an external lab?->No 10554&Blood^\S\^Vein&Vein TIBC will be run. Is this specimen being sent to an external lab?->No 17108&Blood^\S\^Vein&Vein TIBC will not be run. Is this specimen being sent to an external lab?->No 14629&Blood^\S\^Vein&Vein Performed By: #### C BC #### [address] [address] Neutrophils/100 WBC (Bld) 61.0 % Normal 34.0-64.0 [facility] Comment on above: Order Comment: With differential. Is this specimen being sent to an external lab?->No 59488&Blood^\S\^Vein&Vein TIBC will be run. Is this specimen being sent to an external lab?->No 12547&Blood^\S\^Vein&Vein TIBC will not be run. Is this specimen being sent to an external lab?->No 78000&Blood^\S\^Vein&Vein Performed By: #### C BC #### [place] [address] Nucleated RBC/100 WBC (Bld) [Ratio] 0.0 % Normal -1.0-0.0 [facility] Comment on above: Order Comment: With differential. Is this specimen being sent to an external lab?->No 91346&Blood^\S\^Vein&Vein TIBC will be run. Is this specimen being sent to an external lab?->No 76654&Blood^\S\^Vein&Vein TIBC will not be run. Is this specimen being sent to an external lab?->No 59778&Blood^\S\^Vein&Vein Performed By: #### C BC #### [address] [address] Platelets (Bld) [#/Vol] 235 10*3/uL Normal 150-450 [facility] Comment on above: Order Comment: With differential. Is this specimen being sent to an external lab?->No 86710&Blood^\S\^Vein&Vein TIBC will be run. Is this specimen being sent to an external lab?->No 16114&Blood^\S\^Vein&Vein TIBC will not be run. Is this specimen being sent to an external lab?->No 90948&Blood^\S\^Vein&Vein Performed By: #### C BC #### [place] [id number] RBC 5.04 10E12/L High 4.10-4.80 [facility] Comment on above: Order Comment: With differential. Is this specimen being sent to an external lab?->No 15072&Blood^\S\^Vein&Vein TIBC will be run. Is this specimen being sent to an external lab?->No 17913&Blood^\S\^Vein&Vein TIBC will not be run. Is this specimen being sent to an external lab?->No 55817&Blood^\S\^Vein&Vein Performed By: #### C BC #### [place] [address] WBC (Bld) [#/Vol] 4.2 10*3/uL Low 4.5-13.0 [facility] Comment on above: Order Comment: With differential. Is this specimen being sent to an external lab?->No 49684&Blood^\S\^Vein&Vein TIBC will be run. Is this specimen being sent to an external lab?->No 89054&Blood^\S\^Vein&Vein TIBC will not be run. Is this specimen being sent to an external lab?->No 93229&Blood^\S\^Vein&Vein Performed By: #### C BC #### [place] [address] Ferritinon 04-03-2020 Ferritin [Mass/Vol] 16 ng/mL Normal 12-156 [facility] Comment on above: Order Comment: With differential. Has the specimen been drawn from a line flushed with Heparin?->No Release to patient->Automatic Is this specimen being sent to an external lab?->No 13545&Blood^\S\^Vein&Vein Performed By: #### M DIFF #### [place] [id number] Ironon 04-03-2020 %Saturation 25 % Normal 13-59 [facility] Comment on above: Order Comment: With differential. Is this specimen being sent to an external lab?->No 67515&Blood^\S\^Vein&Vein TIBC will be run. Is this specimen being sent to an external lab?->No 02709&Blood^\S\^Vein&Vein TIBC will not be run. Is this specimen being sent to an external lab?->No 67538&Blood^\S\^Vein&Vein Performed By: #### I NIKHIL #### [place] [address] Iron [Mass/Vol] 96 ug/dL Normal 30-160 [facility] Comment on above: Order Comment: With differential. Is this specimen being sent to an external lab?->No 08781&Blood^\S\^Vein&Vein TIBC will be run. Is this specimen being sent to an external lab?->No 64781&Blood^\S\^Vein&Vein TIBC will not be run. Is this specimen being sent to an external lab?->No 49780&Blood^\S\^Vein&Vein Performed By: #### I NIKHIL #### [place] [address] TIBC 388 ug/dl Normal 228-428 [facility] Comment on above: Order Comment: With differential. Is this specimen being sent to an external lab?->No 80925&Blood^\S\^Vein&Vein TIBC will be run. Is this specimen being sent to an external lab?->No 48027&Blood^\S\^Vein&Vein TIBC will not be run. Is this specimen being sent to an external lab?->No 21111&Blood^\S\^Vein&Vein Performed By: #### I NIKHIL #### [place] [address] C-Reactive Proteinon 020 CRP [Mass/Vol] mg/L Normal 0.0-1.0 [facility] Comment on above: Order Comment: With differential. Is this specimen being sent to an external lab?->No 09651&Blood^\S\^Venous&Venous Result Comment: CRP determinations in neonates should be interpreted with caution. CRP may be elevated in circumstances not associated with inflammation (e.g. difficult delivery, pneumothorax). In premature neonates CRP levels may not rise to abnormal levels even if sepsis is present; some speculate that immature liver function decreases the ability to generate a CRP response. Performed By: #### C RP #### [place] [address] Complete Blood Counton 03-04 Differential Complete Automated Normal [facility] Comment on above: Order Comment: With differential. Is this specimen being sent to an external lab?->No 58019&Blood^\S\^Venous&Venous Performed By: #### C BC #### [place] [address] Basophils/100 WBC (Bld) 0.30 % Normal 0.00-1.00 [facility] Comment on above: Order Comment: With differential. Is this specimen being sent to an external lab?->No 39052&Blood^\S\^Venous&Venous Performed By: #### C BC #### [address] [address] Eosinophils/100 WBC (Bld) 1.00 % Normal 0.00-3.00 [facility] Comment on above: Order Comment: With differential. Is this specimen being sent to an external lab?->No 99123&Blood^\S\^Venous&Venous Performed By: #### C BC #### [place] [address] Erythrocyte distribution width (RBC) [Ratio] 24.0 % High 0.0-14.4 [facility] Comment on above: Order Comment: With differential. Is this specimen being sent to an external lab?->No 17441&Blood^\S\^Venous&Venous Performed By: #### C BC #### [facility] [place] [address] [place], [place] [id number] Hematocrit (Bld) [Volume fraction] 31.2 % Low 37.0-46.0 [facility] Comment on above: Order Comment: With differential. Is this specimen being sent to an external lab?->No 34406&Blood^\S\^Venous&Venous Performed By: #### C BC #### [place] [address] Hemoglobin (Bld) [Mass/Vol] 9.7 g/dL Low 12.0-15.0 [facility] Comment on above: Order Comment: With differential. Is this specimen being sent to an external lab?->No 89482&Blood^\S\^Venous&Venous Performed By: #### C BC #### [place] [address] Immature granulocytes/100 WBC (Bld) 0.30 % Normal [facility] Comment on above: Order Comment: With differential. Is this specimen being sent to an external lab?->No 41592&Blood^\S\^Venous&Venous Result Comment: Opal ture Granulocyte Percent includes promyelocytes, myelocytes, and metamyelocytes. IG% > 1.0 indicates a left shift is present. With automated differentials, bands are included in the neutrophil count and not in the Immature Granulocyte Percent. Performed By: #### C BC #### [place] [address] Lymphocytes/100 WBC (Bld) 30.9 % Normal 25.0-45.0 [facility] Comment on above: Order Comment: With differential. Is this specimen being sent to an external lab?->No [id number]&Blood^\S\^Venous&Venous Performed By: #### C BC #### [address] [address] MCH (RBC) [Entitic mass] 22.7 pg Low 25.0-35.0 [facility] Comment on above: Order Comment: With differential. Is this specimen being sent to an external lab?->No [id number]&Blood^\S\^Venous&Venous Performed By: #### C BC #### [address] [address] MCHC 31.1 % Normal 31.0-37.0 [facility] Comment on above: Order Comment: With differential. Is this specimen being sent to an external lab?->No [id number]&Blood^\S\^Venous&Venous Performed By: #### C BC #### [place] [address] MCV (RBC) [Entitic vol] 72.9 fL Low 78.0-96.[address] [facility] Comment on above: Order Comment: With differential. Is this specimen being sent to an external lab?->No [id number]&Blood^\S\^Venous&Venous Performed By: #### C BC #### [place] [address] Monocytes/100 WBC (Bld) 9.40 % High 3.00-6.[address] [facility] Comment on above: Order Comment: With differential. Is this specimen being sent to an external lab?->No [id number]&Blood^\S\^Venous&Venous Performed By: #### C BC #### [address] [address] MPV Not Available Normal [facility] Comment on above: Order Comment: With differential. Is this specimen being sent to an external lab?->No [id number]&Blood^\S\^Venous&Venous Result Comment: MPV is platelet range and age dependent Performed By: #### C BC #### [address] [address] Neutrophils (Bld) [#/Vol] 3.4 10*3/uL Normal 2.0-7.2 [facility] Comment on above: Order Comment: With differential. Is this specimen being sent to an external lab?->No 56016&Blood^\S\^Venous&Venous Performed By: #### C BC #### [address] [address] Neutrophils/100 WBC (Bld) 58.1 % Normal 34.0-64.0 [facility] Comment on above: Order Comment: With differential. Is this specimen being sent to an external lab?->No 79557&Blood^\S\^Venous&Venous Performed By: #### C BC #### [address] [address] Nucleated RBC/100 WBC (Bld) [Ratio] 0.0 % Normal -1.0-0.0 [facility] Comment on above: Order Comment: With differential. Is this specimen being sent to an external lab?->No 99635&Blood^\S\^Venous&Venous Performed By: #### C BC #### [address] [address] Platelets (Bld) [#/Vol] 241 10*3/uL Normal 150-450 [facility] Comment on above: Order Comment: With differential. Is this specimen being sent to an external lab?->No 78454&Blood^\S\^Venous&Venous Performed By: #### C BC #### [address] [address] RBC 4.28 10E12/L Normal 4.10-4.80 [facility] Comment on above: Order Comment: With differential. Is this specimen being sent to an external lab?->No 45583&Blood^\S\^Venous&Venous Performed By: #### C BC #### [address] [address] WBC (Bld) [#/Vol] 5.9 10*3/uL Normal 4.5-13.0 [facility] Comment on above: Order Comment: With differential. Is this specimen being sent to an external lab?->No 46988&Blood^\S\^Venous&Venous Performed By: #### C BC #### [address] [address] ESRon 03-04-2020 ESR Sed Rate 9 mm Normal [facility] Comment on above: Order Comment: With differential. Is this specimen being sent to an external lab?->No 35944&Blood^\S\^Venous&Venous Performed By: #### S RATE #### [address] [address] TSH with reflex T4FRon 03-04 TSH with reflex T4FR 2.833 uIU/mL Normal 0.350-5.[address] [facility] Comment on above: Order Comment: With differential. Is this specimen being sent to an external lab?->No 11043&Blood^\S\^Vein&Vein TIBC will be run. Is this specimen being sent to an external lab?->No 76066&Blood^\S\^Vein&Vein TIBC will not be run. Is this specimen being sent to an external lab?->No 33892&Blood^\S\^Vein&Vein Performed By: #### C BC #### [address] [address] ESRon 03-03-2020 Interpretation ----- Normal [facility] Comment on above: Order Comment: With differential. Is this specimen being sent to an external lab?->No 21323&Blood^\S\^Venous&Venous Result Comment: Male Female Child 0-13 Child 0-13 Adult 0- 9 Adult 0-20 Performed By: #### S RATE #### [place] [address] Progress Noteon 03-03-2020 Director Packaging Authentication Interface Message Text Patient ID: Yenny Zee is a 19 y.o. female. Her chief complaint(s) include: Other (hair loss ) Assessment 1. Thinning hair Plan Yenny was seen today for other. Diagnoses and all orders for this visit: Thinning hair - Venipuncture - TSH with Reflex to T4, Free (Clinic Collect) - C-reactive protein (Clinic Collect) - ESR (Clinic Collect) - Complete Blood Count with Diff (Clinic Collect) Will obtain laboratory studies to evaluate for thyroid dysfunction or inflammatory process that may be causing hair loss. Patient does not recall anything happening prior to onset of losing more hair than normal. May need referral to dermatology. Return if symptoms worsen or fail to improve. Subjective She is accompanied by her mother. Other This problem is new (thinning hair). The duration has been 1 year. The onset has been gradual. The course is unchanging (just prolonged). The patient's symptoms have included no fatigue, no fever, no fussiness, no decreased appetite, no decreased fluid intake, no difficulty sleeping, no congestion, no rhinorrhea, no sore throat, no cough, no bilateral ear pain, no headaches, no difficulty breathing, no abdominal pain, no diarrhea and no vomiting. (Irregular menses: skipping months, no dry skin or constipation). The location of symptoms have included the scalp. The symptoms are described as mild. (Tried different shampoo). Primary Care Review of Systems Objective Vital Signs 03/03/20 1749 Temp: 36.6 C (97.9 F) TempSrc: Temporal Weight: 66 kg There is no height or weight on file to calculate BMI. Physical Exam Constitutional: She appears well. She is active. No distress. HENT: Head: Atraumatic. Ears: Right Ear: Tympanic membrane normal. Left Ear: Tympanic membrane normal. Mouth/Throat: Mucous membranes are moist. Thinner hair per patient and mother. No evidence of any patchy alopecia. No dry scalp or hair. Eyes: Conjunctivae are normal. Neck: Slight fullness in thyroid area Cardiovascular: Normal rate and regular rhythm. Heart murmur not heard. Pulmonary/Chest: Breath sounds normal. There is normal air entry. Neurological: She is alert. Vitals reviewed: Temperature 36.6 C (97.9 F), temperature source Temporal, weight 66 kg, last menstrual period 02/13/2020. Normal [facility] Clinical Summary: HMSPatient IDon 11-22-2019 P [facility] Work Phone: Office Visit: New - 1st visi t with practice, Rm: 5on 11-22-2019 NEGATED: Highlighted rowMRI (magnetic resonance imaging) history of the right knee on 11/14/2019 at [facility] Work Phone: Clinical Lists Update: Prelo ad Extendedon 11-20-2019 Tobacco smoking status NHIS Tobacco smoking status [facility] Work Phone: Vital Signs Date Time Vital Sign Value Performing Clinician Facility 10-03-2024 14:03-0400 Body height 170.18 cm No Primary Care Physician [facility] 10-03-2024 14:03-0400 Body mass index (BMI) [Ratio] 25 kg/m2 No Primary Care Physician [facility] 10-03-2024 14:03-0400 Body weight 72.37 kg No Primary Care Physician [facility] 10-03-2024 14:03-0400 Diastolic blood pressure 80 mm[Hg] No Primary Care Physician [facility] 10-03-2024 14:03-0400 Heart rate 75 /min No Primary Care Physician [facility] 10-03-2024 14:03-0400 Respiratory rate 15 /min No Primary Care Physician [facility] 10-03-2024 14:03-0400 SaO2% (BldA) [Mass fraction] 100 % No Primary Care Physician [facility] 10-03-2024 14:03-0400 Systolic blood pressure 124 mm[Hg] No Primary Care Physician [facility] 04-27-2024 13:51-0500 Body temperature 102.2 [degF] Krislyn Aberegg PA Work Phone: [facility] 04-27-2024 13:51-0500 Body weight 70.2 kg Krislyn Aberegg PA Work Phone: [facility] 04-27-2024 13:51-0500 Diastolic blood pressure 61 mm[Hg] Krislyn Aberegg PA Work Phone: [facility] 04-27-2024 13:51-0500 Heart rate 114 /min Krislyn Aberegg PA Work Phone: [facility] 04-27-2024 13:51-0500 Respiratory rate 18 /min Krislydamien Aberegg PA Work Phone: [facility] 04-27-2024 13:51-0500 SaO2% (BldA) [Mass fraction] 99 % Krislyn Aberegg PA Work Phone: [facility] 04-27-2024 13:51-0500 Systolic blood pressure 113 mm[Hg] Krislydamien Aberegg PA Work Phone: [facility] 03-28-2024 15:45-0500 Diastolic blood pressure 78 mm[Hg] No Primary Care Physician [facility] 03-28-2024 15:45-0500 Heart rate 86 /min No Primary Care Physician [facility] 03-28-2024 15:45-0500 Systolic blood pressure 108 mm[Hg] No Primary Care Physician [facility] 03-28-2024 13:07-0500 Body mass index (BMI) [Ratio] 24.1 kg/m2 No Primary Care Physician [facility] 03-28-2024 13:07-0500 Body temperature 96.6 [degF] No Primary Care Physician [facility] 03-28-2024 13:07-0500 Respiratory rate 14 /min No Primary Care Physician [facility] 03-28-2024 13:07-0500 SaO2% (BldA) [Mass fraction] 100 % No Primary Care Physician [facility] 07-10-2023 09:18-0400 Body height 172.[address] Venus Key Work Phone: [facility] 07-10-2023 09:03-0400 Body mass index (BMI) [Ratio] 23.5 kg/m2 Dr. Venus Key Work Phone: [facility] 07-10-2023 09:03-0400 Body weight 70.[address] Venus Key Work Phone: [facility] 07-10-2023 09:03-0400 Diastolic blood pressure 70 mm[Hg] Dr. Venus Key Work Phone: [facility] 07-10-2023 09:03-0400 Systolic blood pressure 110 mm[Hg] Dr. Venus Key Work Phone: 1(022)458-796814 [address] 07-05-2022 08:57-0400 Body height 172.[address] Venus Key Work Phone: 2(527)368-959043 [place] [address] 07-05-2022 08:51-0400 Body mass index (BMI) [Ratio] 23.3 kg/m2 Dr. Venus Key Work Phone: 1(945)183-096143 [place] [address] 07-05-2022 08:51-0400 Body weight 69.[address] Venus Key Work Phone: 6(153)425-690143 [place] [address] 07-05-2022 08:51-0400 Diastolic blood pressure 68 mm[Hg] Dr. Venus Key Work Phone: 6(256)128-243443 [place] [address] 07-05-2022 08:51-0400 Systolic blood pressure 104 mm[Hg] Dr. Venus Key Work Phone: 7(677)500-917043 [place] [address] 05-03-2022 11:47-0500 Body height 172.[address] eVnus Key Work Phone: 8(786)705-448843 [place] [address] 05-03-2022 11:36-0500 Body mass index (BMI) [Ratio] 22.7 kg/m2 Dr. Venus Key Work Phone: 5(899)501-046843 [place] [address] 05-03-2022 11:36-0500 Body weight 67.[address] Venus Key Work Phone: 3(595)238-927543 [place] [address] 05-03-2022 11:36-0500 Diastolic blood pressure 82 mm[Hg] Dr. Venus Key Work Phone: 5(021)484-395614 [address] 05-03-2022 11:36-0500 Systolic blood pressure 102 mm[Hg] Dr. Venus Key Work Phone: 9(245)024-787843 [place] [address] 04-11-2022 12:47-0500 Body temperature 97.59 [degF] Stevie Mendez MD Work Phone: [facility] 04-11-2022 12:47-0500 Body weight 71.03 kg Steive Mendez MD Work Phone: [facility] 04-11-2022 12:47-0500 Diastolic blood pressure 84 mm[Hg] Stevie Mendez MD Work Phone: [facility] 04-11-2022 12:47-0500 Heart rate 69 /min Stevie Mendez MD Work Phone: [facility] 04-11-2022 12:47-0500 Respiratory rate 18 /min Stevie Mendez MD Work Phone: [facility] 04-11-2022 12:47-0500 SaO2% (BldA) [Mass fraction] 98 % Stevie Mendez MD Work Phone: [facility] 04-11-2022 12:47-0500 Systolic blood pressure 130 mm[Hg] Stevie Mendez MD Work Phone: [facility] 06-22-2021 07:40-0400 Body temperature 96.91 [degF] Anyi Praisler-Wood OVEN LOADER.[employer]OX [employer]LECTOR Work Phone: [facility] 06-22-2021 07:40-0400 Body weight 72.12 kg Anyi Praisler-Wood OVEN LOADER.[employer] COLLECTOR Work Phone: [facility] 06-22-2021 07:40-0400 Diastolic blood pressure 82 mm[Hg] Anyi Praisler-Wood OVEN LOADER.[employer]OX COLLECTOR Work Phone: [facility] 06-22-2021 07:40-0400 Heart rate 66 /min Anyi Praisler-Wood OVEN LOADER.[employer]OX COLLECTOR Work Phone: [facility] 06-22-2021 07:40-0400 Respiratory rate 16 /min Anyi Praisler-Wood OVEN LOADER.[employer] COLLECTOR Work Phone: [facility] 06-22-2021 07:40-0400 SaO2% (BldA) [Mass fraction] 98 % Anyi Praisler-Wood OVEN LOADER.[employer] COLLECTOR Work Phone: [facility] 06-22-2021 07:40-0400 Systolic blood pressure 128 mm[Hg] Anyi Praisler-Wood OVEN LOADER.[facility] Work Phone: [facility] 05-26-2021 13:07-0500 Body height 172.[address] Venus Key Work Phone: [facility] Work Phone: 05-26-2021 13:07-0500 Body mass index (BMI) [Ratio] 23.8 kg/m2 Dr. Venus Kye Work Phone: [facility] Work Phone: 05-26-2021 13:07-0500 Body weight 71.[address] Venus Key Work Phone: [facility] Work Phone: 05-26-2021 13:07-0500 Diastolic blood pressure 79 mm[Hg] Dr. Venus Key Work Phone: [facility] Work Phone: 05-26-2021 13:07-0500 Systolic blood pressure 127 mm[Hg] Dr. Venus Key Work Phone: [facility] Work Phone: NEGATED: Highlighted [id number] 10:51-0400 Body height 170.18 cm Sy Gonzáles AT [facility] Work Phone: NEGATED: Highlighted [id number] 10:51-0400 Body height 170 cm Sy Gonzáles AT [facility] Work Phone: NEGATED: Highlighted [id number] 10:51-0400 Body mass index (BMI) [Ratio] 24.84 kg/m2 Sy Gonzáles AT [facility] Work Phone: NEGATED: Highlighted [id number] 10:51-0400 Body weight 71.67 kg Sy Gonzáles AT [facility] Work Phone: NEGATED: Highlighted [id number] 10:51-0400 Body weight 72 kg Sy Gonzáles AT [facility] Work Phone: NEGATED: Highlighted [id number] 12:55-0400 BMI (Body Mass Index) 23.42 kg/m2 Oneyda Burton LPN [facility] Work Phone: NEGATED: Highlighted [id number] 12:55-0400 Body weight 67.59 kg Oneyda Burton LPN [facility] Work Phone: NEGATED: Highlighted [id number] 12:55-0400 Body weight 68 kg Oneyda Burton LPN [facility] Work Phone: NEGATED: Highlighted [id number] 12:55-0400 Heart rate 2+ Oneyda Burton LPN [facility] Work Phone: NEGATED: Highlighted [id number] 12:55-0400 Height 170.18 cm Oneyda Burton LPN [facility] Work Phone: NEGATED: Highlighted [id number] 12:55-0400 Height 170 cm Oneyda Burton LPN [facility] Work Phone: Encounters Encounter Date Encounter Type Care Provider Facility Start: 02-05-2025 ambulatory No Primary Car e Physician [facility] Start: 10-03-[address] Alex Means MD -[facility] Start: 10-03-2024 End: 10-03-[address] Alex Means MD -[facility] Work Phone: Start: 10-03-2024 End: 10-03-2024 ambulatory No Primary Care Physician -[facility] Start: 04-29-2024 End: 04-29-2024 Emergency department patient visit Darius Hernandez Facility:[facility] Start: 04-28-2024 End: 04-28-2024 Telephone encounter Remigio PELAYO Work Phone: [facility] Comment on above: Results Start: 04-27-2024 End: 04-27-2024 ambulatory VENUS KEY Facility:[facility] Start: 04-27-2024 End: 04-27-2024 Patient encounter procedure Remigio PELAYO Work Phone: [facility] Comment on above: URI, acute (Primary Dx) Start: 04-11-2024 End: 04-11-2024 ambulatory No Primary Care Physician Facility[facility] Start: 02-28-2024 End: 02-28-[address] [facility] Facility[facility] Start: 02-20-2024 End: 02-20-2024 ambulatory No Primary Care Physician Facility[facility] Start: 01-25-2024 End: 01-25-2024 ambulatory No Primary Care Physician Facility[facility] Start: 01-25-2024 End: 01-25-2024 ambulatory No Primary Care Physician Facility:[facility] Start: 01-18-2024 End: 01-18-2024 Emergency department patient visit Daryn Sanchez Facility:[facility] Start: 07-10-2023 End: 07-10-[address] Venus Key Work Phone: [facility] Work Phone: Start: 07-10-2023 End: 07-10-[address] Venus Key Work Phone: [facility] Work Phone: Start: 08-11-2022 End: 08-11-[address] Venus Key Work Phone: [facility] Work Phone: Start: 08-11-2022 End: 08-11-[address] Venus Key Work Phone: [facility] Start: 07-05-2022 End: 07-05-[address] Venus Key Work Phone: [facility]Laboratory, Specimen Start: 07-05-2022 End: 07-05-[address] Venus Key Work Phone: [facility] Start: 05-12-[address] Kermit Key Work Phone: [facility] Start: 05-03-2022 End: 05-03-[address] Venus Key Work Phone: [facility] Work Phone: Start: 05-03-2022 End: 05-03-[address] Venus Key Work Phone: [facility] Specimen Start: 05-03-2022 End: 05-03-[address] Venus Key Work Phone: [facility] Start: 04-11-2022 End: 04-11-2022 Patient encounter procedure Stevie Mendez MD Work Phone: [facility] Comment on above: Urinary frequency (P rimary Dx) Start: 02-08-2022 Telephone encounter Viktoria Hale APRN.COIN BOX COLLECTOR Work Phone: [facility] Comment on above: Results Start: 06-22-2021 End: 06-22-2021 Patient encounter procedure Anyi Clark APRN.[employer]IN BOX COLLECTOR Work Phone: [facility] Comment on above: Pain with urination (Primary Dx) Start: 06-15-2021 End: 06-15-[address] Venus Key Work Phone: [facility] Start: 05-26-2021 End: 05-26-[address] Venus Key Work Phone: [facility] Start: 11-22-2019 End: 11-22-2019 Patient encounter procedure Karsten Murillo MD Work Phone: [facility] Work Phone: Procedures Date Procedure Procedure Detail Performing Clinician Start: 10-03-2024 Estimated creatinine clearance No Primary Care Physician Start: 10-03-2024 Immature reticulocyt e fraction No Primary Care Physician Start: 10-03-2024 Total iron binding capacity measurement No Primary Care Physician Start: 04-11-2024 Assay of phosphorus inorganic No Primary Care Physician Start: 04-11-2024 Folic acid measurement No Primary Care Physician Start: 04-11-2024 Measurement of C-kael ctive protein using high sensitivity technique No Primary Care Physician Comment on above: C-Reactive Protein ( CRP) provides useful information for thediagnosis, therapy and monitoring of inflammatory processesand associated diseases. For the evaluation of Relative Riskfor Cardiovascular Disease, a High Sensitivity CRP (HSCRP)should be ordered. Start: 04-11-2024 Measurement of renal function No Primary Care Physician Comment on above: GFR Calc Start: 02-20-2024 Endomysial antibody IgA level No Primary Care Physician Start: 02-20-2024 Gliadin antibody, Ig A measurement No Primary Care Physician Comment on above: Negative 0 - 19 Weak Positive 20 - 30 Moderate to Strong Positive >30 Start: 02-20-2024 Gliadin antibody, Ig G measurement No Primary Care Physician Comment on above: Negative 0 - 19 Weak Positive 20 - 30 Moderate to Strong Positive >30 Start: 02-20-2024 Measurement of immunoglobulin A in serum specimen No Primary Care Physician Comment on above: Performed at: [facility] [employer] Director: Varun Torres PhD, Phone: [phone] Start: 04-11-2022 Urnls dip stick/tabl et rgnt auto w/o microscopy Brenda Pichardo PA-C Work Phone: Start: 07-02-2021 End: 07-03-2021 BP scrn no perf at interval Karsten Murillo MD Work Phone: Start: 07-02-2021 End: 07-03-2021 Calc BMI norm parameters Karsten Kirby Work Phone: Start: 07-02-2021 End: 07-03-2021 Current tobacco non-user cad cap copd pv dm Karsten Murillo MD Work Phone: Start: 07-02-2021 End: 07-03-2021 Docrev cur meds by kiko Murillo MD Work Phone: Start: 07-02-2021 End: 07-03-2021 Pain neg no plan Karsten Murillo MD Work Phone: Start: 07-02-2021 End: 07-03-2021 Patient encounter procedure Karsten Murillo MD Work Phone: Start: 07-02-2021 End: 07-03-2021 Radiologic examination knee 1/2 views Karsten Murillo MD Work Phone: Start: 07-02-2021 End: 07-03-2021 Tob non-user Karsten Murillo MD Work Phone: Start: 06-22-2021 Urnls dip stick/tabl et rgnt auto w/o microscopy Anyi Clark OVEN LOADER.[employer]OX COLLECTOR Work Phone: Start: 06-15-[address] Tim Key Work Phone: Start: 06-15-[address] Venus Key Work Phone: Start: 11-22-2019 End: 11-22-2019 Adolescent tobacco screening was negative - non user Karsten Murillo MD Work Phone: Start: 11-22-2019 End: 11-22-2019 [facility] Karsten Murillo MD Work Phone: NEGATED: Highlighted rowStart: 07-02-2021 End: 07-02-2021 Documentation of current medications Sy Gonzáles AT NEGATED: Highlighted rowStart: 11-22-2019 End: 11-22-2019 Documentation of current medications Oneyda Burton LPN Plan of Treatment Date Care Activity Detail Author Start: 10-03-2024 [facility] Start: 05-15-2024 Urine microalbumin profile DTaP,Tdap,Td Vaccine (7 - Td or Tdap) [facility] Start: 11-26-2023 Covid-19 Vaccine (2023- season) Covid-19 Vaccine ( season) [facility] Start: 11-26-2023 Influenza vaccination Influenza Vacc ine (#1) [facility] Start: 2022 Screening for malign ant neoplasm of cervix Cervical Cancer Screening [facility] Start: 03-27-2022 DEPRESSION ASSESSMENT DEPRESSION ASS ESSMENT [facility] Start: 11-25-2021 Influenza vaccination INFLUENZA (#1) [facility] Start: 07-04-2021 COVID-19 VACCINE (4 - Booster for Moderna series) COVID-19 VACCINE (4 - Booster for Moderna series) [facility] Start: 03-27-2021 DEPRESSION ASSESSMENT DEPRESSION ASS ESSMENT [facility] Start: 2020 Urine microalbumin profile DTAP,TDAP,TD (1 - Tdap) [facility] Start: 11-25-2020 Influenza vaccination INFLUENZA (#1) [facility] Start: 12-26-2019 Anxiety Screening Anxiety Screening [facility] Start: 12-26-2019 CHLAMYDIA SCREENING (18-24) CHLAMYDIA SCREENING (18-24) [facility] Start: 12-26-2019 Depression Screening Depression Scre ening [facility] Start: 12-26-2019 GC (GONORRHEA) SCREENING (18-24) GC (GONORRHEA) SCREENING (18-24) [facility] Start: 12-26-2019 HEPATITIS C SCREENING HEPATITIS C [facility] Start: 12-26-2019 Hepatitis C screening Hepatitis C [facility] Start: 12-26-2019 HIV SCREENING HIV SCREENING [facility] Start: 12-26-2019 HIV screening HIV Screening [facility] Start: 12-26-2019 Screening for Chlamy boston trachomatis Chlamydia Screening (18-24) [facility] Start: 11-22-2019 End: 11-22-2019 Appointment [facility] Work Phone: Start: 2017 Meningococcal B Vaccine: Consider Based On Risk (1 of 2 - Patient Seeks Protection) Meningococcal B Vaccine: Consider Based On Risk (1 of 2 - Patient Seeks Protection) [facility] Start: 2016 HPV Vaccine (1 - 3-d ose series) HPV Vaccine (1 - 3-dose series) [facility] Start: 12-26-2015 PEDS TO ADULT TRANSITION ANNUAL ASSESSMENT PEDS TO ADULT TRANSITION ANNUAL ASSESSMENT [facility] Start: 2013 Adult depression screening assessment DEPRESSION SCREENING [facility] Start: 2013 PEDS TO ADULT TRANSITION INITIAL DISCUSSION PEDS TO ADULT TRANSITION INITIAL DISCUSSION [facility] Start: 2012 HPV VACCINE (1 - 2-d ose series) HPV VACCINE (1 - 2-dose series) [facility] Start: 12-26-2011 MENINGOCOCCAL B: Consider based on risk (1 of 2 - Risk Bexsero 2-dose series) MENINGOCOCCAL B: Consider based on risk (1 of 2 - Risk Bexsero 2-dose series) [facility] Start: 2001 HEPATITIS B (1 of 3 - 3-dose series) HEPATITIS B (1 of 3 - 3-dose series) [facility] Bacteria identified in Urine by Culture URINE CULTURE Microbiology Routine Pain with urination Ordered: 06/22/2021 [facility] Work Phone: Comment on above: Ordered: 06/22/2021 Bacteria identified in Urine by Culture URINE CULTURE Microbiology Routine Urinary frequency Ordered: 04/11/2022 [facility] Work Phone: Comment on above: Ordered: 04/11/2022 C reactive protein [Mass/volume] in Serum or Plasma [facility] COVID & INFLUENZA A/ B & RSV PCR, ROUTINE COVID & INFLUENZA A/B & RSV PCR, ROUTINE Microbiology Routine URI, acute Ordered: 04/27/2024 [facility] Work Phone: Comment on above: Ordered: 04/27/2024 Hepatitis C antibody measurement [facility] HIV 1+2 Ab+HIV1 p24 Ag [Presence] in Serum or Plasma by Immunoassay [facility] Iron [Mass/mass] in Unspecified specimen [facility] Patient Education \cps-sql1\CPS_ PtEducati on\CDC_FALL_PREVENTION. pdf [facility] Work Phone: Treponema sp Ab [Presence] in Serum [facility] Immunizations Immunization Date Immunization Notes Care Provider Kierra calvo 12-18-2007 influenza virus vacc ine, unspecified formulation Remigio PELAYO Work Phone: [facility] Payers Date Payer Category Payer Medicaid [id number] 2024 Self-pay [id number] 2020 Medicaid [id number] 2020 Medicaid [employer] [id number] 2020-Present [phone] [address] [place] [address] Medicaid [id number] 2017 Private Health Insurance [facility] CHO[employer] PLUS [id number] 2017-Present [phone] [address] [place] [address] O [id number] Private Health Insurance [id number] Unknown [id number] Unknown [id number] Unknown [id number] Unknown [id number] Unknown [id number] 462 Unknown [id number] Unknown [id number] 462 Unknown [id number] 462 Unknown [id number] 462 Unknown [id number] 462 Unknown [id number] 462 Unknown [id number] 462 Social History Date Type Detail Facility Start: 05-26-2021 End: 07-10-2023 Assertion Unknown if ever smoked [facility] Work Phone: Start: 2001 Sex Assigned At Female [facility] Start: 12-15-2013 End: 04-29-2024 Tobacco smoking status NHIS Never smoked tobacco [facility] Work Phone: Start: 12-15-2013 End: 02-06-2022 Tobacco use and exposure Smokeless tobacco non-user [facility] Work Phone: Start: 06-22-2021 End: 04-27-2024 Alcohol intake Not Asked [facility] Start: 2001 Sex Assigned At Not on file [facility] Start: 06-12-2021 End: 06-22-2021 Exposure to SARS-CoV-2 (event) Not sure [facility] Work Phone: Start: 03-04-2020 End: 04-27-2024 History of Social function [facility] Start: 03-04-2020 End: 04-27-2024 Tobacco use panel [facility] National Score (1-100), lower number is lower risk Not on file [facility] Mental Status Date Assessment Result Facility 03-28-2024 Cognitive function Voice/Name [facility] Work Phone: Clinical Notes 06-22-2021 to 04-28-2024 Telephone Encounter - Ernestina Youssef MA - 04/28/2024 11:02 AM ESTTelephone Encounter - Ernestina Youssef MA - 04/28/2024 11:02 AM Remigio Flores PA - 04/27/2024 1:58 PM EST Note Date & Type Note Facility 04-28-2024 Telephone encount er Note Pt was notified of the results. Pt verbalized understanding. Ernestina Youssef MA [facility] 04-28-2024 Miscellaneous Notes Formattin g of this note might be different from the original. Pt was notified of the results. Pt verbalized understanding. Ernestina Youssef MA Please contact patient let her know she tested positive for influenza A. Take Tamiflu as prescribed at visit yesterday documented in this encounter [facility] 04-28-2024 Telephone encount er Note Please contact patient let her know she tested positive for influenza A. Take Tamiflu as prescribed at visit yesterday [facility] 04-27-2024 Note HNO ID: [id number] Author: REMIGIO RAMÍREZ PA Service: ? Author Type: Physician Heavy Lift Rigger Type: Progress Notes Filed: 04/27/2024 14:00 Note Text: This note was created using Taquillariter. Subjective Yenny Zee is a 23 year old female. HPI 23-year-old female presents for fever, chills, body aches, cough since yesterday. Patient states yesterday she started getting chills and cough. She had a fever of 101 ?F last night. She states she has had a consistent fever for since yesterday evening. She did take Tylenol around 4 AM. She is also taking Mucinex for symptoms. No nasal congestion. No sore throat. No vomiting or diarrhea. No sick contacts that she is aware of. No other complaint. PAST MEDICAL HISTORY Diagnosis Date Exercise-induced asthma PAST SURGICAL HISTORY Procedure Laterality Date KNEE SURGERY HX Right LCL repair ALLERGIES Patient has no known allergies. MEDICATIONS Levonorgestrel-Ethinyl Estrad 0.1mg - 20mcg per tablet Take 1 tablet by mouth every afternoon. oseltamivir (TAMIFLU) 75 mg capsule Take 1 capsule by mouth two times a day for 5 days. aspirin, enteric coated (ASPIRIN, ENTERIC COATED) 81 mg EC tablet Take 81 mg by mouth once daily. (Patient not taking: Reported on 04/27/2024) ibuprofen (MOTRIN) 800 mg tablet Take 800 mg by mouth every 8 hours as needed. (Patient not taking: Reported on 04/27/2024) loratadine (CLARITIN) 10 mg tablet Take 10 mg by mouth. (Patient not taking: Reported on 04/27/2024) albuterol HFA (PROVENTIL HFA, VENTOLIN HFA) 90 mcg/actuation inhaler Inhale 2 Puffs as instructed. (Patient not taking: Reported on 04/27/2024) No family history on file. Social History Tobacco Use Smoking status: Never Smokeless tobacco: Never Review of Systems Constitutional: Positive for chills and fever. HENT: Negative for congestion, ear pain and sore throat. Respiratory: Positive for cough. Negative for shortness of breath. Cardiovascular: Negative for chest pain. Gastrointestinal: Negative for diarrhea and vomiting. Musculoskeletal: Positive for myalgias. Objective BP 113/61 Pulse 114 Temp (!) 39 ?C (102.2 ?F) Resp 18 Wt 70.2 kg (154 lb 12.2 oz) LMP 01/07/2022 (Within Days) SpO2 99% Physical Exam Vitals and nursing note reviewed. Constitutional: General: She is not in acute distress. Appearance: Normal appearance. She is not toxic-appearing. HENT: Right Ear: Tympanic membrane and ear canal normal. Left Ear: Tympanic membrane and ear canal normal. Nose: Nose normal. Mouth/Throat: Mouth: Mucous membranes are moist. Eyes: Conjunctiva/sclera: Conjunctivae normal. Cardiovascular: Rate and Rhythm: Normal rate and regular rhythm. Pulmonary: Effort: Pulmonary effort is normal. Breath sounds: Normal breath sounds. No wheezing, rhonchi or rales. Skin: General: Skin is warm and dry. Neurological: Mental Status: She is alert. Assessment and Plan ASSESSMENT/PLAN: 1. URI, acute - ICD9: 465.9, ICD10: J06.9 - Discussed viral etiology and rationale for treatment. - Symptomatic treatment with prn analgesia - Supportive care with fluids and rest - The patient may also use OTC cough and cold meds as needed. - COVID AND INFLUENZA A/B AND RSV PCR, ROUTINE -Suspect influenza. Rx Tamiflu sent. Patient will start this tomorrow if flu positive. No history of CKD. Diagnosis and treatment plan were discussed and questions were answered to the patient's satisfaction. Pt acknowledged understanding of concepts and follow up plan. Specific signs and symptoms that would indicate the need for higher level of care were discussed in detail warranting prompt ER evaluation. GITA Le [facility] 04-27-2024 History of Presen t illness Narrative This note was created using Boticcater. Subjective Yenny Zee is a 23 year old female. HPI 23-year-old female presents for fever, chills, body aches, cough since yesterday. Patient states yesterday she started getting chills and cough. She had a fever of 101 F last night. She states she has had a consistent fever for since yesterday evening. She did take Tylenol around 4 AM. She is also taking Mucinex for symptoms. No nasal congestion. No sore throat. No vomiting or diarrhea. No sick contacts that she is aware of. No other complaint. PAST MEDICAL HISTORY Diagnosis Date Exercise-induced asthma PAST SURGICAL HISTORY Procedure Laterality Date KNEE SURGERY HX Right LCL repair ALLERGIES Patient has no known allergies. MEDICATIONS Levonorgestrel-Ethinyl Estrad 0.1mg - 20mcg per tablet Take 1 tablet by mouth every afternoon. oseltamivir (TAMIFLU) 75 mg capsule Take 1 capsule by mouth two times a day for 5 days. aspirin, enteric coated (ASPIRIN, ENTERIC COATED) 81 mg EC tablet Take 81 mg by mouth once daily. (Patient not taking: Reported on 04/27/2024) ibuprofen (MOTRIN) 800 mg tablet Take 800 mg by mouth every 8 hours as needed. (Patient not taking: Reported on 04/27/2024) loratadine (CLARITIN) 10 mg tablet Take 10 mg by mouth. (Patient not taking: Reported on 04/27/2024) albuterol HFA (PROVENTIL HFA, VENTOLIN HFA) 90 mcg/actuation inhaler Inhale 2 Puffs as instructed. (Patient not taking: Reported on 04/27/2024) No family history on file. Social History Tobacco Use Smoking status: Never Smokeless tobacco: Never Review of Systems Constitutional: Positive for chills and fever. HENT: Negative for congestion, ear pain and sore throat. Respiratory: Positive for cough. Negative for shortness of breath. Cardiovascular: Negative for chest pain. Gastrointestinal: Negative for diarrhea and vomiting. Musculoskeletal: Positive for myalgias. Objective BP 113/61 Pulse 114 Temp (!) 39 C (102.2 F) Resp 18 Wt 70.2 kg (154 lb 12.2 oz) LMP 01/07/2022 (Within Days) SpO2 99% Physical Exam Vitals and nursing note reviewed. Constitutional: General: She is not in acute distress. Appearance: Normal appearance. She is not toxic-appearing. HENT: Right Ear: Tympanic membrane and ear canal normal. Left Ear: Tympanic membrane and ear canal normal. Nose: Nose normal. Mouth/Throat: Mouth: Mucous membranes are moist. Eyes: Conjunctiva/sclera: Conjunctivae normal. Cardiovascular: Rate and Rhythm: Normal rate and regular rhythm. Pulmonary: Effort: Pulmonary effort is normal. Breath sounds: Normal breath sounds. No wheezing, rhonchi or rales. Skin: General: Skin is warm and dry. Neurological: Mental Status: She is alert. Assessment and Plan ASSESSMENT/PLAN: 1. URI, acute - ICD9: 465.9, ICD10: J06.9 - Discussed viral etiology and rationale for treatment. - Symptomatic treatment with prn analgesia - Supportive care with fluids and rest - The patient may also use OTC cough and cold meds as needed. - COVID & INFLUENZA A/B & RSV PCR, ROUTINE -Suspect influenza. Rx Tamiflu sent. Patient will start this tomorrow if flu positive. No history of CKD. Diagnosis and treatment plan were discussed and questions were answered to the patient's satisfaction. Pt acknowledged understanding of concepts and follow up plan. Specific signs and symptoms that would indicate the need for higher level of care were discussed in detail warranting prompt ER evaluation. GITA Le documented in this encounter [facility] 07-10-2023 Note [facility] Pap Smear Specimen Adequacy July 10, 2023 11:05am Comment . Satisfactory for evaluation. No endocervical component is identified. Comment on above: Satisfactory for lyle luation. No endocervical component is identified. 04-11-2022 History of Presen t illness Narrative Patient presents with: Urinary Frequency: With burning, low back pain x1 day HPI: Symptoms since yesterday. Dysuria: Yes Frequency: Yes Hematuria: No. Urine is cloudy and strong. Nausea: No Fever or chills: No Back pain: Yes, left lower Abdominal pain: No Prior UTI: Yes Personal history of kidney stones: No Family history of kidney stones: No Denies OTC treatment. Had right LCL surgery in January from Volleyball injury. PAST MEDICAL HISTORY Diagnosis Date Exercise-induced asthma PAST SURGICAL HISTORY Procedure Laterality Date KNEE SURGERY HX Right LCL repair MEDICATIONS: Current Outpatient Medications Medication Sig aspirin, enteric coated (ASPIRIN, ENTERIC COATED) 81 mg EC tablet Take 81 mg by mouth once daily. ibuprofen (MOTRIN) 800 mg tablet Take 800 mg by mouth every 8 hours as needed. loratadine (CLARITIN) 10 mg tablet Take 10 mg by mouth. albuterol HFA (PROVENTIL HFA, VENTOLIN HFA) 90 mcg/actuation inhaler Inhale 2 Puffs as instructed. No current facility-administered medications for this visit. ALLERGIES: ALLERGIES No Known Allergies VITALS: BP 130/84 Pulse 69 Temp 36.4 C (97.6 F) Resp 18 Wt 71 kg (156 lb 9.6 oz) LMP 01/07/2022 (Within Days) SpO2 98% PHYSICAL EXAM: GEN: NAD HEENT: EOMI, conjunctiva clear, moist mucous membranes HEART: regular rate and rhythm, no murmurs LUNGS: clear to auscultation, no wheezes or crackles, no increased WOB ABDOMEN: Soft, nondistended, no masses, no suprapubic tenderness BACK: No CVA tenderness ASSESSMENT/PLAN: 1. Urinary frequency - ICD9: 788.41, ICD10: R35.0 - UA positive for herb esterase, hematuria, and proteinuria - UA DIP, URINE (POC) - URINE CULTURE - NITROFURANTOIN MONOHYDRATE & MACROCRYSTAL 100 MG ORAL CAP Stevie Mendez MD documented in this encounter [facility] 02-08-2022 Miscellaneous Notes Formattin g of this note might be different from the original. Spoke with pt's mother and information listed below given. Pt 's mother verbalizes understanding. Aimee Vanegas LPN Please notify patient that urine culture showed mixture of bacteria which suggests possible contamination upon collection. Advise her to finish the antibiotic if it is helping her symptoms but if not, then she will need to return to provide another specimen. Thank you. Viktoria Hale APRN.COIN BOX COLLECTOR documented in this encounter [facility] 06-22-2021 History of Presen t illness Narrative Subjective HPI Yenny Zee is a 20 year old female who presents with dysuria and cloudy urine for the past 3 days. She denies fever or back pain. No nausea or vomiting. LMP is current (today). She has not taken any medication for this at home. Review of Systems Constitutional: Negative for chills and fever. Respiratory: Negative. Cardiovascular: Negative. Gastrointestinal: Negative for abdominal pain, nausea and vomiting. Genitourinary: Positive for dysuria. Musculoskeletal: Negative for back pain. BP 128/82 Pulse 66 Temp 36.1 C (96.9 F) Resp 16 Wt 72.1 kg (159 lb) LMP 06/22/2021 SpO2 98% No past medical history on file. No past surgical history on file. ALLERGIES Patient has no known allergies. MEDICATIONS loratadine (CLARITIN) 10 mg tablet Take 10 mg by mouth. albuterol HFA (PROVENTIL HFA, VENTOLIN HFA) 90 mcg/actuation inhaler Inhale 2 Puffs as instructed. nitrofurantoin monohydrate and macrocrystal (MACROBID) 100 mg capsule Take 1 capsule by mouth twice daily with meals for 7 days. Zkolwwatycyqm-Gouoqvhmawlpg-NF (TYLENOL COLD HEAD CONGEST SEVR) 5-325-200 mg tab Take 1 Dose by mouth as directed. No family history on file. Social History Tobacco Use Smoking status: Never Smoker Smokeless tobacco: Never Used Substance Use Topics Alcohol use: Not on file Drug use: Not on file Objective Physical Exam Vitals and nursing note reviewed. Constitutional: Appearance: Normal appearance. Cardiovascular: Rate and Rhythm: Normal rate and regular rhythm. Heart sounds: Normal heart sounds. Pulmonary: Effort: Pulmonary effort is normal. Breath sounds: Normal breath sounds. Abdominal: General: There is no distension. Palpations: Abdomen is soft. There is no mass. Tenderness: There is no abdominal tenderness. There is no right CVA tenderness, left CVA tenderness or guarding. Skin: General: Skin is warm and dry. Neurological: Mental Status: She is alert. ASSESSMENT/PLAN: 1. Pain with urination - ICD9: 788.1, ICD10: R30.9 acute - UA positive for herb esterase, hematuria and proteinuria - Send urine for culture - Begin treatment with Macrobid 100 mg BID for 7 days - Patient education for prevention given - UA DIP, URINE (POC) - URINE CULTURE - NITROFURANTOIN MONOHYDRATE & MACROCRYSTAL 100 MG ORAL CAP - Follow-up with your PCP in 3-5 days if symptoms have not improved or sooner if symptoms worsen - Discussed red flags and need for immediate medical evaluation if any occur. - Discussed supportive care treatment with fluids, rest and analgesia. - Discussed expected course of illness Anyi Clark APRN.CNP documented in this encounter [facility] 06-22-2021 Instructions Anyi Clark APRN.CNP - 06/22/2021 7:48 AM EDT ASSESSMENT/PLAN: 1. Pain with urination - ICD9: 788.1, ICD10: R30.9 acute - UA positive for herb esterase, hematuria and proteinuria - Send urine for culture - Begin treatment with Macrobid 100 mg BID for 7 days - Patient education for prevention given - UA DIP, URINE (POC) - URINE CULTURE - NITROFURANTOIN MONOHYDRATE & MACROCRYSTAL 100 MG ORAL CAP - Follow-up with your PCP in 3-5 days if symptoms have not improved or sooner if symptoms worsen - Discussed red flags and need for immediate medical evaluation if any occur. - Discussed supportive care treatment with fluids, rest and analgesia. - Discussed expected course of illness Anyi Clark APRN.COIN BOX COLLECTOR [facility] PATIENT INFO BLADDER INFECTION OVERVIEW Bladder infections are one of the most common infections, causing symptoms of burning with urination and needing to urinate frequently. A bladder infection is a type of urinary tract infection (UTI). Bladder infections are more common is women than men. Most women have an uncomplicated bladder infection that is easily treated with a short course of antibiotics. In men, bladder infections may also affect the prostate gland, and a longer course of treatment may be needed. BLADDER INFECTION CAUSES The urinary tract includes the kidneys (which filter urine), ureters (the tube that carries urine from the kidneys to the bladder), the bladder (which stores urine), and urethra (the tube that carries urine out of the bladder). Bacteria do not normally live in these areas. However, bacteria normally live close to the urethra in women and men who are not circumcised. Bladder infections occur when bacteria travel up the urethra into the bladder. Factors that increase the risk of developing a bladder infection include: Vaginal sex Use of spermicides History of past bladder infections Diabetes In men, not being circumcised or having anal sex increase the risk of bladder infections. BLADDER INFECTION SYMPTOMS The typical symptoms of a bladder infection include: Pain or burning when urinating Frequent need to urinate Urgent need to urinate Blood in the urine Fever, back pain, nausea, or vomiting are not common symptoms of a bladder infection, but can occur in people with a kidney infection (pyelonephritis). If you have these symptoms, you should call your doctor or nurse immediately. Is it a bladder infection or something else? Burning with urination can also occur in people with vaginitis (eg, yeast infection) or urethritis (inflammation of the urethra). For this reason, it is important to call your healthcare provider before assuming you have a bladder infection. BLADDER INFECTION DIAGNOSIS Simple bladder infections are usually diagnosed based upon your symptoms alone. However, most patients, especially those who have bladder infection symptoms for the first time, should see a healthcare provider for urine testing. Urine culture A urine culture is a test that uses a sample of urine to try and grow bacteria in a laboratory. It usually requires about 48 hours to get results. However, a urine culture is not always required to diagnose a bladder infection. Urine culture is often recommended if: You have never had a bladder infection before You have symptoms that are not typical for bladder infection You have had resistant bladder infections before You have frequent bladder infections You do not begin to feel better within 24 to 48 hours after starting antibiotics You are BLADDER INFECTION TREATMENT Bladder infection In young, healthy adolescents and adults with a bladder infection, the usual treatment includes a three to seven day course of antibiotics. The typical drugs chosen are: trimethoprim-sulfamethoxazole (Bactrim ), nitrofurantoin (Macrobid ), ciprofloxacin (Cipro ) or levofloxacin (Levaquin ). In men, the infection may involve your prostate gland and treatment is usually given for at least 7 days. Your symptoms should begin to resolve within one day after starting treatment. It is important to take the full course of antibiotics to completely eliminate the infection. If your symptoms persist for more than two or three days after starting treatment, call your healthcare provider. If needed, you can take a prescription medication that numbs the bladder and urethra (phenazopyridine [Pyridium ]) to reduce the burning pain of some UTIs. A similar medication is available without a prescription (eg, Uristat). Both medications change the color of the urine (usually blue or orange) and can interfere with laboratory testing. You should not take these medications for more than 48 hours due to the risk of side effects. These medications do not treat the infection and must be taken along with an antibiotic. Some providers recommend drinking more fluids while treating bladder infections to help flush bacteria from the bladder. Others believe that drinking more fluids may dilute the antibiotic in the bladder and make the medication less effective. No studies have been performed to address this issue. There are also no good studies on the effectiveness of cranberry juice for treating a bladder infection; we do not recommend using cranberry juice to treat bladder infections. Follow-up care Follow-up testing is not needed in healthy, young men or women with a bladder infection if symptoms resolve. women are usually asked to have a repeat urine culture one to two weeks after treatment has ended to make sure the bacteria are no longer in the urine. RECURRENT BLADDER INFECTIONS Bladder infections versus other causes Some adults, especially women, develop bladder infections frequently. In this case, it is important to confirm that your symptoms (eg, pain or burning, frequency, and urgency) are caused by a bladder infection. Symptoms are usually similar from one infection to another. The best way to confirm an infection is to have a urine culture. If your urine culture is negative for infection, other causes of pain, burning, and frequency should be investigated. There is no reason to take antibiotics if your urine culture is negative. Need for further testing If you continue to develop bladder infections, you may require further testing. If you continue to notice blood in your urine after your bladder infection has cleared, you should have further testing. Preventing recurrent UTIs Women with recurrent urinary tract infections may be advised to take steps to prevent bladder infections, including one or more of the following: Changes in control Women who develop frequent bladder infections and use spermicides, particularly those who also use a diaphragm, may be encouraged to use an alternate method of control. Cranberry products Taking cranberry juice or cranberry tablets has been promoted as one way to help prevent frequent bladder infections. However, this has not been proven. Drinking more fluid and urinating after intercourse Although studies have not proven that drinking more fluids or urinating soon after intercourse can prevent infection, some healthcare providers recommend these measures since they are not harmful. Drinking more fluid may help to wash out bacteria that enter the bladder. Postmenopausal women Postmenopausal women who develop recurrent bladder infections may benefit from using vaginal estrogen. Vaginal estrogen is available in a flexible ring that is worn in the vagina for three months (eg, Estring ), a small tablet (Vagifem ), or a cream (eg, Premarin or Estrace ). Vaginal estrogen is discussed in more detail in a separate topic review. Antibiotics A preventive antibiotic treatment may be recommended if you repeatedly develop bladder infections and have not responded to other preventive measures. Antibiotics are highly effective in preventing recurrent bladder infections and can be taken in several different ways. Preventive antibiotic You can take a low dose of an antibiotic once per day or three times per week for six months to several years. Antibiotics following intercourse In women who develop urinary tract infections after sex, taking a single low dose antibiotic after intercourse can help to prevent bladder infections. Self-treatment A plan to begin antibiotics at the first sign of a bladder infection may be recommended in some situations. Before starting this regimen, it is important that you have had testing (urine cultures) to confirm that your symptoms are caused by a bladder infection; some people have symptoms of a bladder infection but do not actually have an infection. documented in this encounter [facility] Evaluation note Diagnosis Onset Date Abnormal uterine bleeding ac council Genital herpes acute [facility] Work Phone: Evaluation note* Diagnosis Pain with urination- Primary Renal colic [facility] noteThere may be information available, but it has not been provided by the sender.[facility] Work Phone: Evaluation note* Diagnosis Urinary frequency- Primary [facility] Diagnosis Onset Date Resolution Status Abnormal uterine bleeding ac council Genital herpes acute Vaginitis noneactive [facility] Work Phone: Evaluation note* Diagnosis Onset Date Resolution Status Abnormal uterine bleeding ac council Genital herpes acute Vaginitis noneactive Abnormal uterine bleeding ac council Chlamydia acute Genital herpes acute [facility] Work Phone: Evaluation note* Diagnosis Onset Date Resolution Status Encounter for routine gynecological examination noneactive [facility] Work Phone: Evaluation note* Diagnosis URI, acute- Primary Acute upper respiratory infections of unspecified site [facility] Diagnosis Onset Date Resolution Status Admit Date Celiac disease chronic October 03, 2024 1:13pm 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 October 03, 2024 1:13pm [facility] Work Phone: InstructionsNo information available.[facility] Work Phone: Reason for referral (narrative)No reason for referral information availableBlResnick [facility] Work Phone: Chief Complaint Chief Complaint Description Start Date right knee pain Preliminary chief co mplaint data, not yet signed by the author as of Chief Complaint Description Start Date right knee pain Preliminary chief co mplaint data, not yet signed by the author as of Advance Directives No Advanced Directives Records Found Advance Directive Response Recorded Date/ Time Advance Directives No April 07, 2016 11:00pm Living Will No January 17 9:50pm Power of Dba Developer No January 17, 2021 9:50pm Advance Directive Response Recorded Date/ Time Advance Directives No April 07, 2016 10:00pm Living Will No January 17 8:50pm Power of Dba Developer No January 17, 2021 8:50pm Advance Directive Response Recorded Date/ Time Advance Directives No April 07, 2016 11:00pm Assessments There may be information available, but it has not been provided by the sender. Review of System There may be information available, but it has not been provided by the sender. Family History There may be information available, but it has not been provided by the sender.No Family History Records FoundThere may be information available, but it has not been provided by the sender.No Family History Records FoundNo Family History Records Found History of Present Illness There may be information available, but it has not been provided by the sender. Summary Purpose Chief Complaint and Reason for Visit Chief Complaint irregular menses wit h spotting ABNORMAL UTERINE BLEEDING Reason for Visit Abnormal uterine ble eding Genital herpes Chief Complaint irregular menses Encounter for screening for infections with a pred S/P RT KN LCL RECON,RT KN PAIN/RX HERE Reason for Visit Abnormal uterine ble eding Genital herpes Vaginitis Chief Complaint irregular menses Encounter for screening for infections with a pred Follow up STD S/P RT KN LCL RECON,RT KN PAIN/RX HERE Reason for Visit Abnormal uterine ble eding Genital herpes Vaginitis Abnormal uterine bleeding Chlamydia Genital herpes Chief Complaint Annual (LACQUERER) Reason for Visit Encounter for routin e gynecological examination Chief Complaint Admit Date [facility] October 03, 2024 1:13 pm MED ONC October 03, 2024 1:15 pm Reason for Visit Admit Date Celiac disease October 03, 2024 1:13 pm Iron deficiency anemia due to celiac dis ease October 03, 2024 1:13pm Additional Source Comments Reason for Visit (unrecogniz ed section and content) Reason For Visit Description New - 1st visit with practice Preliminary reason f or visit data, not yet signed by the author as of right knee pain Reason Comments Urinary Problem pain with urination and urine is cloudy x 4 days Reason For Visit Description Start Date Follow-up by complaint Preliminary reason f or visit data, not yet signed by the author as of right knee pain Reason Comments Results Reason Comments Urinary Frequency With burning, low ba ck pain x1 day Reason Comments Flu Like Symptoms Cough, fever, chills , bodyaches x1 day INFORMATION SOURCE (unrecogn ized section and content) DATE CREATED AUTHOR 01/06/2021 [facility] DATE CREATED AUTHOR AUTHOR'S ORGANIZ ATION 04/29/[address] [facility] DATE CREATED AUTHOR AUTHOR'S ORGANIZ ATION 01/14/2025 [facility] Goals (unrecognized section and content) Goals may be documented in a n alternate sectionGoals may be documented in an alternate sectionGoals may be documented in an alternate sectionGoals may be documented in an alternate sectionGoals may be documented in an alternate section Source Comments (unrecognize d section and content) In the event this informatio n is protected by the Federal Confidentiality of Alcohol and Drug Abuse Patient Records regulations: The Federal rules restrict any use of the information to criminally investigate or prosecute any alcohol or drug abuse patient.[facility] the event this information is protected by the Federal Confidentiality of Alcohol and Drug Abuse Patient Records regulations: The Federal rules restrict any use of the information to criminally investigate or prosecute any alcohol or drug abuse patient.[facility] Hospital[facility] the event this information is protected by the Federal Confidentiality of Alcohol and Drug Abuse Patient Records regulations: The Federal rules restrict any use of the information to criminally investigate or prosecute any alcohol or drug abuse patient.[facility] Hospital[facility] the event this information is protected by the Federal Confidentiality of Alcohol and Drug Abuse Patient Records regulations: The Federal rules restrict any use of the information to criminally investigate or prosecute any alcohol or drug abuse patient.[facility] Hospital[facility] the event this information is protected by the Federal Confidentiality of Alcohol and Drug Abuse Patient Records regulations: The Federal rules restrict any use of the information to criminally investigate or prosecute any alcohol or drug abuse patient.[facility] Care Teams (unrecognized sec tion and content) Freight Checker Relationship Specialty Start Date End Date Venus Key [address] [place] [address] PCP - General Pediatrics 12/15/13 Freight Checker Relationship Specialty Start Date End Date Venus Key [address] [place] [address] PCP - General Pediatrics 12/15/13 Freight Checker Relationship Specialty Start Date End Date Venus Key [address] [facility] [place] [address] PCP - General Pediatrics 12/15/13 Team Status: Active Member Role Status Dates Dr. Venus Key MD Family Provider Active Dr. Venus Key MD Primary Care Provider Active Team Status: Inactive Member Role Status Dates Dr. Venus Key MD Primary Care Provider, Referrin g Provider Active Niki Christopher CANDY POLISHER, CANDY POLISHER-C Attending Provider Active Team Status: Active Member Role Status Dates Dr. Venus Key MD Primary Care Provider Active PAU K[place]OR Attending Provider, Referring Provider Ac tive TASHI PAU Active Team Status: Inactive Member Role Status Dates Dr. Venus Key MD Primary Care Provider Active Niki Christopher CANDY POLISHER, CANDY POLISHER-C Attending Provider, Referring Provider Active Team Status: Inactive Member Role Status Dates Dr. Venus Key MD Primary Care Provider Active KARSTENPAU BENTON Attending Provider, Referring Provider Ac tive TASHI PAU Active Team Status: Active Member Role Status Dates Dr. Venus Key MD Family Provider Active No Primary Care Physician Primary Care Provider Active Team Status: Inactive Member Role Status Dates No Primary Care Physician Primary Care Provider Active Niki Christopher CANDY POLISHER, CANDY POLISHER-C Attending Provider, Referring Provider Active Freight Checker Relationship Specialty Start Date End Date Venus Key MD [address] [place] [address] PCP - General Pediatrics 12/15/13 Freight Checker Relationship Specialty Start Date End Date Venus Key MD [address] [facility] [place] [address] PCP - General Pediatrics 12/15/13 Team Status: Active Member Role/Relationship Status Dates No Primary Care Physician Primary Care Provider Active Team Status: Inactive Member Role/Relationship Status Dates No Primary Care Physician Primary Care Provider Active Start: October 03, 2024 End: October 03, 2024 No Primary Care Physician Referring Provider Active Start: October 03, 2024 End: October 03, 2024 Dr. Alex Means MD Attending Provider Active S tart: October 03, 2024 End: October 03, 2024 Team Status: Active Member Role/Relationship Status Dates No Primary Care Physician Primary Care Provider Active Start: October 03, 2024 Dr. Alex Means MD Attending Provider Active S tart: October 03, 2024 Dr. Alex Means MD Referring Provider Active S tart: October 03, 2024 FOR RECORDS PERTAINING TO PATIENTS WHO ARE OR HAVE BEEN ENROLLED IN A CHEMICAL DEPENDENCY/SUBSTANCEABUSE PROGRAM, SOME INFORMATION MAY BE OMITTED. This clinical summary was aggregated from multiple sources. Caution should be exercised in using it in the provision of clinical care. This summary normalizes information from multiple sources, and as a consequence, information in this document may materially change the coding, format and clinical context of patient data. In addition, data may be omitted in some cases. CLINICAL DECISIONS SHOULD BE BASED ON THE PRIMARY CLINICAL RECORDS. [facility] [employer] provides no warranty or guarantee of the accuracy or completeness of information in this document.
[2025-02-07 05:08] LABS: Chlamydia By Nucleic Acid AMP Negative (Negative); Gonococcus By Nucleic Acid AMP Negative (Negative)
== END | disposition home or self-care (01) ==
LOC: LABSPEC 11:50
PROVIDERS: Visit Provider Nurse Practitioner Women's Health
DX: Z11.3 Encounter for screening for infections with a predominantly sexual mode of transmission (principal)
CPT/HCPCS: 87491; 87591